=== PATIENT | female | born 1985 | race Caucasian/White ===

== ENCOUNTER → 2018-11-16 08:01 | Outpatient (CLI) | payer MEDICAID, SELFPAY ==
[2018-11-05 15:30] VITALS: BMI 31.9
[2018-11-16 09:15] LABS: AST(SGOT) 46 U/L (15-37); Alanine Aminotransfer ALT/SGPT 61 U/L (13-56); Albumin, Serum 3.1 g/dL (3.2-5.0); Alkaline Phosphatase 95 U/L (45-117); Bilirubin, Direct 0.12 mg/dL (0.00-0.30); Globulin 4.4 g/dL (2.2-4.2); Protein, Total 7.5 g/dL (6.4-8.2)
[2018-11-18 03:08] LABS: HCV Quant. RNA PCR 3490000 IU/mL (.)
[2018-11-18 09:54] LABS: HCV log 10 6.543 (.)
== END ==
PROVIDERS: Family Provider Family Medicine; PCP Family Medicine; Referring Provider Nurse Practitioner Family; Visit Provider Nurse Practitioner Family
DX: B19.20 Unspecified viral hepatitis C without hepatic coma (principal)
CPT/HCPCS: 36415; 80076; 87522

== ENCOUNTER → 2018-12-16 07:34 | Outpatient (CLI) | payer MEDICAID, SELFPAY ==
[2018-12-13 15:12] VITALS: BMI 31.9
[2018-12-16 09:18] LABS: Absolute Lymphocyte Count 10.12 X10^3/ul (0.83-4.51); Absolute Neutrophil Count 5.3 X10^3/uL (2.0-7.7); Basophil# 0.11 X10^3/uL; Basophil% 0.6 % (0-1); Eosinophil# 0.29 X10^3/uL; Eosinophils% 1.7 % (0-5); Hematocrit 45.5 % (37-47); Hemoglobin 14.8 g/dl (12.0-15.0); Lymphocyte # 10.12 X10^3/ul (4.0); Lymphocyte % 58.6 % (19-41); Mean Corp Hgb Conc 32.5 g/gl (32-36); Mean Corpuscular Hgb 29.2 pg (27.0-32.0); Mean Corpuscular Volume 89.9 fL (81-99); Mean Platelet Vol. 10.7 fl (6.2-12.0); Monocyte# 1.42 X10^3/uL; Monocyte% 8.2 % (0-10); Neutrophil # 5.26 X10^3/uL (2.7-7.7); Neutrophil % 30.4 % (47-70); Platelet Count 445 K/mm3 (150-450); RBC Distribution Width CV 13.3 % (11.6-14.6); RBC Distribution Width SD 43.3 fl (35.1-43.9); Red Blood Count 5.06 M/mm3 (4.2-5.4); White Blood Count 17.3 K/mm3 (4.4-11.0)
[2018-12-16 09:21] LABS: Differential Indicated SCAN CRITERIA MET; POSITIVE COUNT NO; POSITIVE DIFFERENTIAL YES; POSITIVE MORPHOLOGY YES
[2018-12-16 10:39] LABS: HIV - WCH Non-Reactive (Nonreactive)
[2018-12-19 09:36] LABS: Comment 1b (.)
[2018-12-20 11:09] LABS: Hep B Surface Antibodies Reactive (.)
[2018-12-23 10:54] LABS: Hepatitis C Genotype 1b
== END ==
PROVIDERS: Family Provider Internal Medicine; PCP Internal Medicine
DX: B18.2 Chronic viral hepatitis C (principal)
CPT/HCPCS: 36415; 85025; 86703; 86706; 87902

== ENCOUNTER 2019-01-11 19:33 | Inpatient (IN) | payer MEDICAID, SELFPAY ==
[2018-12-13 15:12] VITALS: BMI 31.9
[2019-01-11] VITALS (13 sets, daily range): BP systolic 106–165; BP diastolic 62–123; PULSE 118–146; RESP 16–51; TEMP 35.8–38.5; O2SAT 80–100; BMI 32.5; BMI 32.7
--- NOTE | 2019-01-11 19:49 | ED.RN ---
PT IS NOT HOLDING STILL. FINGERS, TOES, AND LIPS SLIGHTLY DUSKY BLUE COLOR. PLACED ON 2L O2 VIA NC
--- NOTE | 2019-01-11 19:50 | ED.RN ---
UNABLE TO GET PULSE OX WITH A GOOD WAVEFORM
--- NOTE | 2019-01-11 20:08 | RAD_ITS ---
STUDY: X-RAY CHEST REASON FOR EXAM: Female, 33 years old. Hypoxic TECHNIQUE: Single AP portable view of the chest. COMPARISON: None. FINDINGS: monitor and storage bin tender leads are present. There is an endotracheal tube with the tip 2.6 cm proximal to the alex. A nasogastric tube is present with the tip in the abdomen out of the [id number] of the image. There are bibasilar pulmonary infiltrates, left side more severely affected than right. There is no demonstrated pleural abnormality. Normal size heart. Normal mediastinum and doe. Normal visualized pulmonary arteries. Normal visualized aortic arch and descending thoracic aorta. Normal visualized thoracic spine. Normal visualized ribs, clavicles, and shoulders. There is no demonstrated abnormality of the visualized soft tissue structures of the upper abdomen. RAD/Chest 1 View (Portable) IMPRESSION: Endotracheal and nasogastric tubes appearing in adequate position. Bilateral pulmonary infiltrates left side more severely affected than right. Electronically Signed: Keegan Munoz MD at 21:57 EDT , Service support ,
--- NOTE | 2019-01-11 20:09 | EKG12_ITS ---
Test Reason : OVERDOSE Blood Pressure : / mmHG Vent. Rate : 134 BPM Atrial Rate : 134 BPM P-R Int : 120 ms QRS Dur : 080 ms QT Int : 380 ms P-R-T Axes : 056 046 053 degrees QTc Int : 567 ms Sinus tachycardia Nonspecific ST and T wave abnormality Abnormal ECG Confirmed by ESTEBAN JANSEN, LISANDRO ([id number]), book or script editor GHISLAINE MARTINEZ ([id number]) on 01/13/2019 11:22:57 AM Referred By: Mary Costello Confirmed By:LISANDRO ORELLANA MD
[2019-01-11] MEDS: Ziprasidone IM 20 MG/ML VIAL IM (20:10)
--- NOTE | 2019-01-11 20:16 | ED.DCSUM_ITS ---
- ER Visit Summary Date of Service: 01/11/19 Chief Complaint: Suspected drug abuse either methamphetamine or bath salts but unsure. History of Present Illness: The patient is a 33 F reportedly found in a drug house. Brought in with police. Suspected possible drug abuse. Patient this time is unable to give any history. Reportedly the police were called to do a well check is no weight seen her for several days. At this time she is unable to give me any history. She is flailing around in bed. It takes multiple people to hold her down to keep her safe from herself or from falling out of bed. We are going to need to physically restrain her for her own safety and that of other patients in the department. Physical Examination: Young female vital signs temperature 97.3. Heart rate 146. Initial blood pressure 164 123. Her arms and legs were flailing. Her eyes are open. She is awake. She is not able to give me any history at this time. HEENT exam atraumatic. Pupils round reactive light. Poor dentition. Dry mucous membranes. Neck nontender no lymphadenopathy. Lungs clear to auscultation bilaterally. Heart tachycardic no murmur. Rate about 145. Abdomen soft nontender normal bowel sounds no peritoneal signs. Moving all 4 extremities. No deformities. Nontender. Neurologically she is awake. Her eyes are open. She will follow limited commands. She does not give me any history. Test Results: EKG shows sinus tachycardia rate of [address]-T wave changes. No acute AL. No dysrhythmia. Portable chest x-ray postintubation shows ET tube in good position. OG in appropriate position. And bilateral lower lobe infiltrates consistent with bilateral lower lobe pneumonia. With the left more affected than the right. Read both by myself the radiologist. Initial blood gas shows a pH 7.26 PCO2 of 39 and PO2 of 109 on 100% O2 97% saturated. UA is negative. Other than positive blood and nitrates. Urine tox is positive for opiates, methamphetamines and amphetamines. Blood cultures x2 are pending. Emergency Department Course and Treatment: Patient initially treated with IM Geodon because we did not have an IV. She also be given IV Ativan. 2 L normal saline due to her dehydration. Patient's pulse ox remained in the mid to low 80s. Clinically she was in distress with a tachycardia and she was very difficult to keep sedated so made the decision to intubate the patient. She was given IV etomidate 20 mg and IV succinylcholine. Is intubated in the first attempt with a 7F ET tube at about 23 at the lips. Bilateral breath sounds were heard. OG was placed. Treatment Plan: IV fluids. IV sedation. Started on both IV Rocephin and IV Zithromax for bilateral lower lobe community-acquired pneumonia. Disposition: Admission to the ICU to the hospitalist Impression: Acute respiratory failure ET tube intubation by ER physician Bilateral lower lobe pneumonia Sepsis Respiratory failure Metabolic acidosis Acute drug abuse Dehydration This note was generated with [facility] dictation software. It may contain incorrect words, spelling, and punctuation that were not noted in review of the chart prior to signing ED Disposition - Plan for ED Patient:
[2019-01-11] MEDS: LORazepam 2 MG/ML Syringe IV (20:20)
[2019-01-11] MEDS: Etomidate 20 MG/10 ML Vial IV (20:36)
[2019-01-11] MEDS: Succinylcholine Chloride 200 MG/10 ML Vial 100 MG IV ×2 (20:37→20:44)
[2019-01-11] MEDS: Propofol 200 MG/20 ML Vial 40 MG IV BOLUS (20:48)
[2019-01-11] MEDS: Propofol 10MG/Ml 1,000 MG/100 ML Bottle 5.16 MG CONT INF ×2 (20:48→23:32)
[2019-01-11] MEDS: 0.9% Normal Saline 1,000 ML 1000 ML IV ×2 (20:48→21:32)
[2019-01-11] MEDS: 0.9% Normal Saline 1,000 ML 999 ML IV (21:12)
[2019-01-11 21:21] LABS: Bacteria 0 SEEN /hpf (None Seen); Mucous, Urine 0 SEEN /hpf (<or=2+); Red Blood Cells-Urine 0 SEEN /hpf (0-5); Squamous Epithelial Cells - UA 0 SEEN /hpf (5-10)
[2019-01-11 21:28] LABS: Color, Urine Yellow (Yellow); Glucose, Dipstick Normal (Normal); Ketone-Dipstick 5 mg/dl (Negative); Leukocyte Esterase-Dipstick 25 /ul (Negative); Nitrite-Dipstick Positive (Negative); Occult Blood-Urine 250 /ul (Negative); Protein-Dipstick 100 mg/dl (Negative); Specific Gravity, Urine 1.025 (1.002-1.030); Urine Clarity Clear (Clear); Urine Urobilinogen 1 mg/dl (Normal)
[2019-01-11 21:35] LABS: Base Excess -9 mmol/L (-2 to +2); Bicarbonate 17.6 mmol/L (22-26); Blood Gas Specimen Type ART; FI02 100; Mode A-C; O2 Delivery Device Vent; PEEP 10; PO2 109 mmHG (75-100); RR 30; SITE L Radial; SO2 97 % (95-99); Total Carbon Dioxide 19 mmol/L; Vt 529; pCO2 39.1 mmHg (35-45); pH 7.26 (7.35-7.45)
[2019-01-11 21:42] LABS: Amphetamine Urine VISTA POSITIVE (<1000 ng/mL); Barbiturate Urine VISTA NEGATIVE (< 200 ng/mL); Benzodiazepine Urine VISTA NEGATIVE (< 200 ng/mL); Cocaine Urine VISTA NEGATIVE (< 300 ng/mL); Ecstacy Urine VISTA POSITIVE (< 500 ng/mL); Methadone Urine VISTA NEGATIVE (< 300 ng/mL); PCP Urine VISTA NEGATIVE (< 25 ng/mL); THC Urine VISTA NEGATIVE (< 50 ng/mL); Vista UDS pH Range 7
[2019-01-11 21:47] LABS: Urine Bilirubin Dipstick 1 mg/dL (Negative)
[2019-01-11 21:48] LABS: Amorphous Sediment 2+; Coarse Granular Cast 0-5 SEEN /lpf (0-5 /lpf)
[2019-01-11 21:49] LABS: White Blood Cells 0-5 SEEN /hpf (0-5)
--- NOTE | 2019-01-11 21:58 | HP.PCM_ITS ---
Problem List (1) Acute respiratory failure with hypoxia Status: Acute (2) Pneumonia Status: Acute Qualifiers: Pneumonia type: due to unspecified organism Laterality: bilateral Lung location: lower lobe of lung Qualified Code(s): J18.1 - Lobar pneumonia, unspecified organism (3) Sepsis Status: Acute Qualifiers: Sepsis type: sepsis due to unspecified organism Qualified Code(s): A41.9 - Sepsis, unspecified organism (4) Cardiac enzymes elevated Status: Acute (5) Tobacco use Status: Chronic (6) Polysubstance abuse Status: Chronic (7) Hepatitis C Status: Chronic Qualifiers: Viral hepatitis chronicity: unspecified Hepatic coma status: without hepatic coma Qualified Code(s): B19.20 - Unspecified viral hepatitis C without hepatic coma (8) Asthma Status: Chronic Qualifiers: Asthma severity: unspecified severity Asthma persistence: unspecified Asthma complication type: unspecified Qualified Code(s): J45.909 - Unspecified asthma, uncomplicated (9) Endocarditis Status: Chronic Qualifiers: Endocarditis type: unspecified Chronicity: unspecified Qualified Code(s): I38 - Endocarditis, valve unspecified (10) Bipolar 1 disorder Status: Chronic History of Present Illness Date of Admission: 01/11/19 Chief Complaint: Found in drug house, failed to check in w/ 180, lethargic when found, intermittent agitation, eventual respiratory distress after sedation The patient is a 33 y/o F w/ PMHx: Tobacco use, History of Endocarditis (unclear valve/unclear organism), Bipolar disorder, Asthma, 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 In the ED work-up incomplete upon requested evaluation of patient w/ only noted CXR w/ BL LL infiltrates, USD w/ positive opiates, amphetamines, methamphetamines, urinalysis with elevated specific gravity 1.025, protein 100, occult blood 250, positive nitrates, 25 leukocyte esterase, WBC 0-5 with 0 bacteria noted, ABG with pH 7.26, PO2 109, PCO2 39.1, vent; however, eventual additional labs resulted following admission w/ CBC with WBC 25, hemoglobin 12.6, platelet 351 with left shift, CMP w/ sodium 140, chloride 113, carbon dioxide 16, BUN/Cr 44/1.08, Actiq acid 1.7, calcium 6.5, AST/ALT 280/85, Trop 0.212, EKG w/ sinus tachycardia with no acute evidence of ischemia, no read chest x-ray with ET tube and nasogastric tubes in place with bilateral pulmonary infiltrates left greater than right bilateral bases. In the ED patient administered Geodon, normal saline, Ativan, propofol, succinylcholine, etomidate, IV Rocephin and azithromycin. Upon presentation patient initially improved but however had notable agitation therefore Geodon and an IV Ativan were administered with following very sedate lethargic status, unable to maintain safe airway and therefore patient intubated while in the ED. Past Medical History Past Medical History (Chronic Problems): Chronic Problems (Last Reviewed 12/13/18 @ 15:11 by Sangeeta Bailey) Tobacco use (Chronic) Polysubstance abuse (Chronic) Hepatitis C (Chronic) Asthma (Chronic) Anxiety (Chronic) Endocarditis (Chronic) Heart murmur (Chronic) Bipolar 1 disorder (Chronic) Manic depression (Chronic) Medical History: Medical History (Last Reviewed 12/13/18 @ 15:11 by Sangeeta Bailey) Anxiety (Chronic) F41.9 Endocarditis (Chronic) I38 Heart murmur (Chronic) R01.1 Bipolar 1 disorder (Chronic) F31.9 Manic depression (Chronic) F31.9 Asthma J45.909 Allergies acetaminophen [From Vicodin] Allergy (Severe, Verified 01/11/19 20:49) Vomiting hydrocodone [From Vicodin] Allergy (Severe, Verified 01/11/19 20:49) Vomiting citalopram [From Celexa] Allergy (Verified 01/11/19 20:49) Swollen tongue Home Medications: Ambulatory Orders Medication Instructions Recorded buspirone 30 mg tablet 15 mg PO TID tab 11/05/18 gabapentin 600 mg tablet 600 mg PO TID 11/05/18 hydroxyzine HCl 25 mg tablet 25 mg PO QHS PRN #60 tab 11/05/18 loratadine 10 mg tablet 10 mg PO DAILY #90 tab 11/05/18 medroxyprogesterone 150 mg/mL 150 mg IM [id number] 11/05/18 intramuscular syringe trazodone 150 mg tablet 150 mg PO DAILY #30 tab 11/05/18 albuterol sulfate HFA 90 2 puff INHALATION Q6H PRN #8 g 11/29/18 mcg/actuation aerosol inhaler ondansetron HCl 4 mg tablet 4 mg PO BID-TID PRN #20 tab 11/29/18 benzonatate 200 mg capsule 200 mg PO TID PRN #60 cap 12/13/18 ibuprofen 200 mg tablet 600 mg PO TID-QID PRN #60 tab 12/13/18 prednisone 20 mg tablet 40 mg PO DAILY #10 tab 12/13/18 sertraline 50 mg tablet 75 mg PO DAILY #45 tab 01/06/19 Surgical History: Surgical History (Last Reviewed 12/13/18 @ 15:11 by Sangeeta Bailey) History of orthopedic surgery Z98.890 on Sternum History of splenectomy Z90.81 Surgical History: - - History of sternal surgery, splenectomy, questionable jonathon vular endocarditis intervention. 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 Smoking Status: Current every day smoker - Unclear pack per day history. Tobacco Use: Cigarettes Alcohol: Occasional - Noted occasional alcohol intake but unclear given sedated, intubated status. Drugs: - - From history upon mission, methamphetamine and possibly bath salts us age but unclear specific history as sedated, intubated status. - *Family History Maternal Family History: Family History (Last Reviewed 12/13/18 @ 15:11 by Sangeeta Bailey) Mother Cancer Grandmother Breast cancer Grandfather Diabetes History Items: Cancer Paternal Family History: Family History (Last Reviewed 12/13/18 @ 15:11 by Sangeeta Bailey) Mother Cancer Grandmother Breast cancer Grandfather Diabetes History Items: - - Unknown paternal family history, able to obtain from patient as intubated, sedated. Review of Systems Unable to obtain accurate/complete ROS d/t: Unable to obtain ROS secondary to intubated, sedated status. VTE Information - Inpt Only VTE Present on Admission: No VTE Mechan Device Prophylaxis: SCD's VTE Pharm Prophylaxis ordered?: Yes Patient Problems: Active and Suspected Problems (Last Reviewed 12/13/18 @ 15:11 by Sangeeta Dudley Acute respiratory failure with hypoxia (Acute) Pneumonia (Acute) Sepsis (Acute) Cardiac enzymes elevated (Acute) Subjective: Laying in the ED bed, intubated, sedated, no acute distress currently. Objective: Physical Examination: General: Sedated, intubated, unable to answer orientation questions, prior was agitated but given Geodon and Ativan, laying in the ED bed. Skin: normal color, turgor, no icterus, cyanosis except occasional abrasion, no obvious track gonsalves upon evaluation. HEENT: AT/NC, able to assess extraocular movements given sedate, intubated status, PERRLA are notably pinpoint bilaterally, dry MM, no carotid bruits or JVD noted. Lungs: Notably diminished breath sounds bilateral bases, intubated, sedated, no obvious rales, ronchi or wheezing. Heart: Tachycardic with regular rhythm; no gallop, rub audible. Abdomen: soft, NTTP, ND, normal BS, no HSM. Extremities: no cyanosis, clubbing, or edema see skin. Neurological: Sedated, intubated, unable to answer orientation questions, prior was agitated but given Geodon and Ativan, laying in the ED bed; cognitive function not baseline intact; pupils equally reactive to light and accomodation; cranial nerves unable to be assessed completely secondary to intubated, sedated status, not moving extremities to painful stimuli but sedated, intubated, strength difficult to assess given this presentation. Psychiatric: affect appears flat, sedated, no acute evidence of depressive or anxiety feelings, had been previously agitated in the ED upon initial evaluation per ED physician. - Physical Exam Vital Signs Temp Pulse Resp BP Pulse Ox 100.6 F H 123 H 27 H 126/85 H 98 01/11/19 21:12 01/11/19 21:12 01/11/19 21:12 01/11/19 21:12 01/11/19 21:12 Oxygen Delivery Method Mechanical Ventilator Weight: 189 lb 9.561 oz Body Mass Index (BMI) 32.5 Intake and Output for Last 24 Hours 01/09/19 01/10/19 01/11/19 23:59 23:59 23:59 Output Total 350 / 350 Balance -350 / -350 Laboratory Tests Past 24 Hrs 01/11/19 01/11/19 01/11/19 21:15 21:15 21:31 Specimen Type ART Sample Site L Radial pH 7.26 L Bicarbonate Actual 17.6 L POC Total CO2 19 Base Excess -9 L O2 Saturation 97 O2 % 100 ABG pCO2 39.1 ABG pO2 109 H Kvng Test NA Respiration Rate 30 O2 Delivery Device Vent Minute Volume 13.00 Vent Mode A-C Tidal Volume 529 POC PEEP 10 Blood Gas Notified Whom ED MD Urine Color Yellow Urine Clarity Clear Urine pH 5.0 Ur Specific [place] 1.025 Urine Protein 100 H Urine Glucose (UA) Normal Urine Ketones 5 H Urine Occult Blood 250 H Urine Nitrite Positive H Urine Bilirubin 1 H Urine Urobilinogen 1 H Ur Leukocyte Esterase 25 H Urine RBC 0 SEEN Urine WBC 0-5 SEEN Ur Squamous Epith Cells 0 SEEN Amorphous Sediment 2+ Urine Bacteria 0 SEEN Coarse Granular Casts 0-5 SEEN Urine Mucus 0 SEEN Urine Opiates Screen POSITIVE H Urine Methadone Screen NEGATIVE Ur Barbiturates Screen NEGATIVE Ur Phencyclidine Scrn NEGATIVE Ur Amphetamines Screen POSITIVE H U Methamphetamin-MDMA POSITIVE H U Benzodiazepines Scrn NEGATIVE Urine Cocaine Screen NEGATIVE U Cannabinoids Screen NEGATIVE Ur Drug Screen Comment Assessment/Plan All Active Problems (Last Reviewed 12/13/18 @ 15:11 by Sangeeta Bailey) Acute respiratory failure with hypoxia (Acute) Pneumonia (Acute) Sepsis (Acute) Cardiac enzymes elevated (Acute) Dental abscess (Acute) Upper respiratory infection (Acute) The patient is a 33 y/o F w/ PMHx: Tobacco use, History of Endocarditis (unclear valve/unclear organism), Bipolar disorder, Asthma, 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 (1) Acute Sepsis secondary to Acute Hypoxic Respiratory Failure secondary to Community Acquired Pneumonia; however, Possible GN/GP organisms given underlying history and exposure: ED work-up incomplete upon requested evaluation of patient w/ only noted CXR w/ BL LL infiltrates, USD w/ positive opiates, amphetamines, methamphetamines, urinalysis with elevated specific gravity 1.025, protein 100, occult blood 250, positive nitrates, 25 leukocyte esterase, WBC 0-5 with 0 bacteria noted, ABG with pH 7.26, PO2 109, PCO2 39.1, vent; however, eventual additional labs resulted following admission w/ CBC with WBC 25, hemoglobin 12.6, platelet 351 with left shift, CMP w/ sodium 140, chloride 113, carbon dioxide 16, BUN/Cr 44/1.08, lactic acid 1.7, calcium 6.5, AST/ALT 280/85, Trop 0.212, EKG w/ sinus tachycardia with no acute evidence of ischemia, no read chest x-ray with ET tube and nasogastric tubes in place with bilateral pulmonary infiltrates left greater than right bilateral bases. Will admit to the ICU, continue intubated, sedated status w/ AC, propofol and fentanyl regimen, continue ATC duonebs, PRN albuterol, maintained on IV Zosyn and Vancomycin, HOB, IS parameters w/ pending sputum cultures and urine antigens. Bld cx x 2 obtained in the ED. ICU physician consulted. (2) Indeterminate cardiac enzyme: EKG in ED w/ no acute evidence of anemia, CXR w/ bilateral lower lobe infiltrates. Trop elevated, 0.212. Will maintain on a monitored bed, continue serial cardiac enzymes and EKGs. Obtain magnesium level upon admission. Start therapeutic lovenox pending further cardiac enzyme trending. Continue medical management w/ asa w/ AM FLP. ECHO requested. Will await further trending, ECHO given history of endocarditis prior to request for Cardiology involvement given limited secondary to acute presentation #1. Mag pending. (3) History of endocarditis: Noted in PCP notes, unclear valve, unclear organism but given IV drug abuse history and current acute presentation with elevated cardiac enzyme, concerns, echocardiogram pending. (4) Polysubstance Abuse, IVDA Hx, History of Hepatitis C, Chronic: Patient currently not candidate for hep C treatment currently as needs to be clean, sober x 6 months, documented attendance NA or AA meetings, counseling and ongoing negative drug screens. HIV, hepatitis panel to assess for co-infection pending. (5) Tobacco Abuse: Encouraged cessation, inpatient consultation per RT, NR if desired once extubated. (6) Chronic Asthma: Intubated and sedated as noted per #1, continue ATC duonebs, PRN albuterol, HOB, IS parameters. (7) Bipolar Disorder: We will hold patient psychiatric regimen given acute presentation until clarified. (8) Elevated LFTs: Possibly chronic given hepatitis C history; however, to be cautious will trending, hydrating, obtain liver US. Hepatitis panel pending. (9) GERD: IV PPI. (10) DVT Prophylaxis: SCDs, therapeutic lovenox. Critical Care Time: 65 minutes, time from 9:30-10:35 pm, were spent addressing patients acute presentation w/ sepsis, acute hypoxic respiratory failure, bilateral lower lobe pneumonia, elevated cardiac enzymes, review of all data in collaboration with care team in addition to review of PCP records available given patient intubated, sedated status unable to give history. Code Visit Procedures: [id number]
--- NOTE | 2019-01-11 22:15 | ED.RN ---
ED STAFF AND LAB STILL UNABLE TO TO OBTAIN CX.
[2019-01-11] MEDS: LORazepam 2 MG/ML Syringe 4 MG IV (22:29)
[2019-01-11] MEDS: Ceftriaxone 1 GM/50 ML BAG IV (22:46)
--- NOTE | 2019-01-11 22:51 | ED.RN ---
ATTEMPTED TO CALL REPORT TO ICU, RN WILL CALL BACK.
[2019-01-11 23:12] LABS: Absolute Lymphocyte Count 2.19 X10^3/ul (0.83-4.51); Absolute Neutrophil Count 21.2 X10^3/uL (2.0-7.7); Basophil# 0.04 X10^3/uL; Basophil% 0.2 % (0-1); Eosinophil# 0.01 X10^3/uL; Hematocrit 36.2 % (37-47); Hemoglobin 12.6 g/dl (12.0-15.0); Lymphocyte # 2.19 X10^3/ul (4.0); Lymphocyte % 8.8 % (19-41); Mean Corp Hgb Conc 34.8 g/gl (32-36); Mean Corpuscular Hgb 29.6 pg (27.0-32.0); Mean Platelet Vol. 11.5 fl (6.2-12.0); Monocyte# 1.38 X10^3/uL; Monocyte% 5.5 % (0-10); Neutrophil # 21.18 X10^3/uL (2.7-7.7); Neutrophil % 84.9 % (47-70); Platelet Count 351 K/mm3 (150-450); RBC Distribution Width CV 13.2 % (11.6-14.6); RBC Distribution Width SD 40.2 fl (35.1-43.9); Red Blood Count 4.26 M/mm3 (4.2-5.4)
[2019-01-11 23:21] LABS: AST(SGOT) 280 U/L (15-37); Alanine Aminotransfer ALT/SGPT 85 U/L (13-56); Albumin, Serum 2.3 g/dL (3.2-5.0); Alkaline Phosphatase 83 U/L (45-117); Anion Gap 11 (5-15); BUN 44 mg/dL (7-18); BUN/Creat Ratio 40.7 RATIO (10-20); Bilirubin, Direct 0.17 mg/dL (0.00-0.30); Calcium,Total 6.5 mg/dL (8.5-10.1); Chloride 113 mmol/L (98-107); Creatinine, Serum 1.08 mg/dL (0.55-1.02); EST Glomerular Filtration Rate 61 mL/min (>60); Est Glom Filt Rate - Afr Amer 74 mL/min (>60); Estimated Creatinine Clearance 63.38 ml/min; Glucose 103 mg/dL (74-106); Potassium 3.8 mmol/L (3.5-5.1); Pregnancy, Serum, hCG Quali. NEGATIVE Negative (0-9 Nonpreg); Protein, Total 6.3 g/dL (6.4-8.2); Sodium Level 140 mmol/L (136-145)
[2019-01-11 23:26] LABS: Lactic Acid 1.7 mmol/L (0.4-2.0)
[2019-01-11 23:37] LABS: POSITIVE COUNT YES; POSITIVE DIFFERENTIAL YES; POSITIVE MORPHOLOGY YES
[2019-01-11 23:38] LABS: Differential Indicated SCAN CRITERIA MET
[2019-01-11 23:47] LABS: Absolute Nucleated RBC Count 0.07 10^3/uL (0-5); Differential Comment SCAN; NRBC Flagged by Analyzer 0.3 % (0-5)
[2019-01-11 23:48] LABS: Platelet Estimate ADEQUATE (ADEQ); Platelet Morphology LARGE
[2019-01-11] MEDS: 0.9% Normal Saline 1,000 ML 150 ML IV (23:51)
[2019-01-11] MEDS: fentaNYL drip 100 ML 2.5 MCG IV (23:52)
--- NOTE | 2019-01-11 23:54 | ECHOD_ITS ---
Reason For Study: CAD/ASHD Procedure This was a 2D Doppler, Color Flow transthoracic echocardiogram. The study was technically difficult. PT on vent, exam performed with patient in supine position. Exam performed portable in ICU/CCU. Left Ventricle Normal size and thickness. The estimated ejection fraction is 65 %. Stage 1 diastolic dysfunction. No regional wall motion abnormalities noted. Right Ventricle Normal size and thickness. Normal systolic function. Atria Normal left atrium. The right atrium is mildly enlarged. Normal atrial septum. Mitral Valve The mitral valve is structurally normal. No prolapse or stenosis seen. Tricuspid Valve Mild diffuse thickening of the tricuspid valve. Moderate (2+) tricuspid valve insufficiency. Right ventricular systolic pressure estimated to be 53 mmHg. Moderate pulmonary hypertension. Aortic Valve Normal aortic valve. Trisinus/trileaflet aortic valve. Pulmonic Valve Normal pulmonic valve. Great Vessels Normal aortic root. Normal arch. Normal inferior vena cava. Inferior vena cava collapse with sniff. Pericardium/Pleural No pericardial effusion. MMode/2D Measurements & Calculations LVIDd: 3.7 cm IVSd: 0.77 cm Ao root diam: 3.1 cm LVIDs: 2.5 cm LVPWd: 0.78 cm RVDd: 3.3 cm FS: 32.0 % LAV(MOD-bp): 35.2 ml LA A4 area: 14.7 cm2 LA dimension(2D): 3.4 cm LAV(MOD-bp) Indexed: 18.4 ml/m2 LAV(MOD-sp2): 31.7 ml LAV(MOD-sp4): 38.3 ml RA A4 area: 18.0 cm2 Doppler Measurements & Calculations MV E max amaury: 54.6 cm/sec Lat Peak E' Amaury: 16.1 cm/sec Med Peak E' Amaury: 12.7 cm/sec MV A max amaury: 71.8 cm/sec E/E' lat: 3.4 E/E' med: 4.3 MV E/A: 0.76 Ao V2 max: 127.4 cm/sec LV V1 max: 98.4 cm/sec PA V2 max: 97.1 cm/sec Ao max P.5 mmHg LV V1 max P.9 mmHg TR max amaury: 345.2 cm/sec TR max P.6 mmHg Interpretation Summary The estimated ejection fraction is 65 %. Stage 1 diastolic dysfunction. Moderate (2+) tricuspid valve insufficiency. Right ventricular systolic pressure estimated to be 53 mmHg. Moderate pulmonary hypertension. There is no comparison study available. Ordering Physician: Mary Costello Referring Physician: Amando Graves Performed By: Marilou Arnett RDCS, RVT
[2019-01-12] VITALS (38 sets, daily range): BP systolic 92–118; BP diastolic 56–74; PULSE 100–122; RESP 14–35; TEMP 35.7–36.9; O2SAT 91–100
[2019-01-12] MEDS: Enoxaparin 100 MG/ML Syringe 90 MG SC ×3 (00:53→17:33)
--- NOTE | 2019-01-12 01:12 | PCM.RX.CS ---
Consult Pharmacy has been consulted to manage selected antiobiotic: Vancomycin Type of Consult: New start Suspected Infection: Pneumonia Prior Doses of Antibiotics Received/Current Regimen: Medications Vancomycin HCl 750 mg/ Sodium (Chloride) 265 mls @ 250 mls/hr IV Q12H ILSA Discontinued Medications Vancomycin HCl 1,250 mg/ (Sodium Chloride) 275 mls @ 167 mls/hr IV X1 ONE Stop: 01/12/19 01:08 Last Admin: 01/12/19 00:21 Dose: 167 mls/hr Labs: Sodium 140 mmol/L (136-145) 01/11/19 22:45 Potassium 3.8 mmol/L (3.5-5.1) 01/11/19 22:45 Chloride 113 mmol/L (98-107) H 01/11/19 22:45 Carbon Dioxide 16.0 mmol/L (21.0-32.0) L 01/11/19 22:45 Anion Gap 11 (5-15) 01/11/19 22:45 BUN 44 mg/dL (7-18) H 01/11/19 22:45 Creatinine 1.08 mg/dL (0.55-1.02) H 01/11/19 22:45 Est GFR (MDRD) Af Amer 74 mL/min (>60) 01/11/19 22:45 Est GFR (MDRD) Non-Af 61 mL/min (>60) 01/11/19 22:45 BUN/Creatinine Ratio 40.7 RATIO (10-20) H 01/11/19 22:45 Glucose 103 mg/dL (74-106) 01/11/19 22:45 Microbiology: Microbiology 01/11/19 21:15 Urine Catheter - Khalil Legionella Antigen - Final 01/11/19 21:15 Urine Catheter - Khalil Streptococcus pneumoniae Antigen (M - Final Weight used for dosin kg Estimated Creatinine Clearance: 63 Goal Trough: 10-15 mcg/mL Pharmacy Plan for Drug Dosing: Pharmacy Service will continue to monitor and adjust dosing as required. Follow-Up Labs: Trough Vancomycin Labs to be done on [date and time ordered]: 01/13/19 @1200
[2019-01-12 01:20] LABS: CPK Total, Creatine Kinase 8489 U/L (26-192); Magnesium 2.2 mg/dL (1.6-2.6); Phosphorus 2.6 mg/dL (2.5-4.9)
[2019-01-12 01:25] LABS: HIV - WCH Non-Reactive (Nonreactive)
[2019-01-12] MEDS: Ipratropium/Albuterol Sulfate 3 ML AMPUL.NEB INHALATION ×5 (03:42→22:04)
[2019-01-12] MEDS: Propofol 10MG/Ml 1,000 MG/100 ML Bottle 5.16 MG CONT INF ×6 (04:00→21:07)
--- NOTE | 2019-01-12 05:55 | US_ITS ---
STUDY: ABDOMINAL ULTRASOUND - RIGHT UPPER QUADRANT REASON FOR VISIT: Female, 33 years old. Elevated liver function tests. TECHNIQUE: Ultrasound evaluation of the right upper quadrant was performed with real-time and static fowler-scale imaging. TECHNICAL QUALITY: Adequate. COMPARISON: None. FINDINGS: Liver: The liver is slightly enlarged and measures 18.1 cm. There is normal echogenicity of the liver. The bile ducts are within normal limits. There is hepatic color flow. The direction of portal flow is hepatopetal. There is no demonstrated mass lesion. Gallbladder: Normal distended gallbladder. The gallbladder wall measures 2.7 mm. There is a negative sonographic Urena's sign. There is trace amount of pericholecystic fluid. There are no gallstones. A small amount of sludge is seen in the gallbladder lumen. Common Bile Duct (C.B.D.): The common bile duct measures 4.3 mm. Pancreas: Normal size of the head, body of the pancreas. The tail portion is obscured due to overlying bowel gas. There is increased echogenicity of the pancreas. There is no demonstrated pancreatic mass or cyst. Right Kidney: Normal size of the right kidney. The right kidney measures 10.1 cm x 5.4 cm x 4.1 cm. Normal renal cortex. The right cortex measures 1.5 cm. There is no demonstrated renal mass or cyst. There is no right hydronephrosis. US/Liver IMPRESSION: Mild hepatomegaly. Trace amount of pericholecystic fluid and sludge within the gallbladder lumen. Electronically Signed: Ever See, at 16:11 EDT , Service support ,
--- NOTE | 2019-01-12 05:55 | EKG12_ITS ---
Test Reason : AM EKG Blood Pressure : / mmHG Vent. Rate : 114 BPM Atrial Rate : 114 BPM P-R Int : 126 ms QRS Dur : 080 ms QT Int : 318 ms P-R-T Axes : 053 048 036 degrees QTc Int : 438 ms Sinus tachycardia Nonspecific T wave abnormality Abnormal ECG When compared with ECG of 11-JAN-2019 20:59, MANUAL COMPARISON REQUIRED, DATA IS UNCONFIRMED Confirmed by AHMET GALLEGOS ([id number]), assistant editor ROCK BERMUDEZ ([id number] on 01/17/2019 5:07:58 PM Referred By: Mary Costello Confirmed By:AHMET GALLEGOS
--- NOTE | 2019-01-12 06:04 | NURSING ---
SBT NOT ATTEMPTED DUE TO PT REQUIRING PEEP OF 10, FIO2 60%, AND INTUBATED LESS THAN 12 HOURS.
--- NOTE | 2019-01-12 06:47 | CON.PCM_ITS ---
Capacity - Capacity Assessment Tool Can the patient make a choice & communicate that choice?: No Can the patient understand benefits, risks and alternatives?: No Can the patient make a logical, rational choice?: No Does the patient have an Advance Directive?: No Reason for Consult Date of Consultation: 01/12/19 Reason for Consultation: Acute respiratory failure History of Present Illness: The patient is a 33-year-old female, with a history as outlined below, who presented to the emergency department on January 11 with a suspected drug overdose. No history can be obtained from the patient, she is currently intubated and sedated. There are no family available at the bedside. Per documentation, the patient currently resides at [facility] and failed to check in. Therefore, the police were contacted, who reportedly found the patient in a suspected drug house. The patient has an extensive history of polysubstance abuse and questionable prior endocarditis. On presentation to the emergency department, the patient was noted to be afebrile, tachycardic and hypertensive. She was tachypneic and hypoxic as well. Laboratory evaluation revealed an elevated white blood cell count to 25,000. Chemistry profile was notable for a serum bicarbonate of 16 and a creatinine of 1.08. Lactate was within normal limits at 1.7. AST was increased to 280 with a corresponding ALT increased to 85. CK level was increased to 8489. Initial troponin was elevated to 0.212. Urinalysis was positive for nitrites and leukocyte esterase. No urine bacteria was noted. Toxicology screen was positive for opiates and methamphetamine. HIV screen was negative. In the emergency department, the patient received IM Geodon along with Ativan. Supplemental IV fluid was provided. Despite the aforementioned, the patient remained hypoxic and was difficult to keep sedated. Therefore, the decision was made to electively intubate the patient. Plain film chest x-ray revealed bilateral pulmonary infiltrates. The patient was subsequently started on antibiotics. She was then admitted to the medical intensive care unit for ongoing management. Past Medical History Past Medical History (Chronic Problems): Chronic Problems (Last Reviewed 12/13/18 @ 15:11 by Sangeeta Bailey) Tobacco use (Chronic) Polysubstance abuse (Chronic) Hepatitis C (Chronic) Asthma (Chronic) Anxiety (Chronic) Endocarditis (Chronic) Heart murmur (Chronic) Bipolar 1 disorder (Chronic) Manic depression (Chronic) Medical History: Medical History (Last Reviewed 12/13/18 @ 15:11 by Sangeeta Bailey) Anxiety (Chronic) F41.9 Endocarditis (Chronic) I38 Heart murmur (Chronic) R01.1 Bipolar 1 disorder (Chronic) F31.9 Manic depression (Chronic) F31.9 Asthma J45.909 Allergies acetaminophen [From Vicodin] Allergy (Severe, Verified 01/11/19 20:49) Vomiting hydrocodone [From Vicodin] Allergy (Severe, Verified 01/11/19 20:49) Vomiting citalopram [From Celexa] Allergy (Verified 01/11/19 20:49) Swollen tongue Home Medications: Ambulatory Orders Medication Instructions Recorded buspirone 30 mg tablet 15 mg PO TID tab 11/05/18 gabapentin 600 mg tablet 600 mg PO TID 11/05/18 hydroxyzine HCl 25 mg tablet 25 mg PO QHS PRN #60 tab 11/05/18 loratadine 10 mg tablet 10 mg PO DAILY #90 tab 11/05/18 medroxyprogesterone 150 mg/mL 150 mg IM [id number] 11/05/18 intramuscular syringe trazodone 150 mg tablet 150 mg PO DAILY #30 tab 11/05/18 albuterol sulfate HFA 90 2 puff INHALATION Q6H PRN #8 g 11/29/18 mcg/actuation aerosol inhaler ondansetron HCl 4 mg tablet 4 mg PO BID-TID PRN #20 tab 11/29/18 benzonatate 200 mg capsule 200 mg PO TID PRN #60 cap 12/13/18 ibuprofen 200 mg tablet 600 mg PO TID-QID PRN #60 tab 12/13/18 prednisone 20 mg tablet 40 mg PO DAILY #10 tab 12/13/18 sertraline 50 mg tablet 75 mg PO DAILY #45 tab 01/06/19 Surgical History: Surgical History (Last Reviewed 12/13/18 @ 15:11 by Sangeeta Bailey) History of orthopedic surgery Z98.890 on Sternum History of splenectomy Z90.81 Surgical History: - - History of sternal surgery, splenectomy, questionable valvular endocarditis intervention. 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 Smoking Status: Current every day smoker - Unclear pack per day history. Tobacco Use: Cigarettes Alcohol: Occasional - Noted occasional alcohol intake but unclear given sedated, intubated status. Drugs: - - From history upon [place], methamphetamine and possibly bath salts usage but unclear specific history as sedated, intubated status. - *Family History Maternal Family History: Family History (Last Reviewed 12/13/18 @ 15:11 by Sangeeta Bailey) Mother Cancer Grandmother Breast cancer Grandfather Diabetes History Items: Cancer Paternal Family History: Family History (Last Reviewed 12/13/18 @ 15:11 by Sangeeta Bailey) Mother Cancer Grandmother Breast cancer Grandfather Diabetes History Items: - - Unknown paternal family history, able to obtain from patient as intubated, sedated. Review of Systems Unable to obtain accurate/complete ROS d/t: Due to current intubation and mechanical ventilation status Patient Problems: Active and Suspected Problems (Last Reviewed 12/13/18 @ 15:11 by Sangeeta Bailey) Acute respiratory failure with hypoxia (Acute) Pneumonia (Acute) Sepsis (Acute) Cardiac enzymes elevated (Acute) Objective: The patient's most recent lab work, culture data and imaging studies have all been personally reviewed. - Physical Exam General: - - Intubated, sedated and mechanically ventilated. Currently tolerating assist control without ventilator dyssynchrony noted. HEENT: Atraumatic, PERRLA, Normocephalic Oral: No Gingival or Mucosal Lesions/ Ulcerations, - - Endotracheal and OG tubes currently in place. Neck: Supple, No Nodes, Trachea Midline Lungs: No wheeze, No rales, Diminished, Rhonchi, Tachypneic Cardiovascular: Normal S1, Normal S2, Tachycardic Abdomen: Bowel Sounds Present, Soft, Non Tender, Non-Distended Extremities: No clubbing, No cyanosis, No edema Skin: - - Erythema of B/L proximal medial thighs Musculoskeletal: No Muscle Wasting Lymphatic: No Cervical, Supraclavicular, or Inguinal Adenopathy Neurological: - - No focal neurological deficits. Patient does become extremely agitated with stimulation. Psych/Mental Status: Agitated, Restless Vital Signs Temp Pulse Resp BP Pulse Ox 36.4 C L 114 H 26 H 118/65 100 01/12/19 06:00 01/12/19 06:00 01/12/19 06:00 01/12/19 06:00 01/12/19 06:00 Oxygen Delivery Method Mechanical Ventilator Weight: 191 lb 12.835 oz Body Mass Index (BMI) 32.7 Intake and Output for Last 24 Hours 01/10/19 01/11/19 01/12/19 23:59 23:59 23:59 Intake Total 1490 / 1490 Output Total 550 / 550 700 / 700 Balance -550 / -550 790 / 790 Microbiology Past 72 Hours 01/11/19 21:15 Legionella Antigen - Final Urine Catheter - Khalil 01/11/19 21:15 Streptococcus pneumoniae Antigen (M - Final Urine Catheter - Khalil Laboratory Tests Past 24 Hrs 01/11/19 01/11/19 01/11/19 21:15 21:15 21:31 WBC RBC Hgb Hct MCV MCH MCHC RDW RDW Differential Plt Count MPV Immature Gran % (Auto) Neut % (Auto) Lymph % (Auto) [place] % (Auto) Eos % (Auto) Baso % (Auto) Absolute Neuts (auto) Absolute Lymphs (auto) Total Counted Nucleated RBC % Differential Comment Platelet Estimate Plt Morphology Comment Absolute Retic Specimen Type ART Sample Site L Radial pH 7.26 L Bicarbonate Actual 17.6 L POC Total CO2 19 Base Excess -9 L O2 Saturation 97 O2 % 100 ABG pCO2 39.1 ABG pO2 109 H Kvng Test NA Respiration Rate 30 O2 Delivery Device Vent Minute Volume 13.00 Vent Mode A-C Tidal Volume 529 POC PEEP 10 Blood Gas Notified Whom ED Sodium Potassium Chloride Carbon Dioxide Anion Gap BUN Creatinine Estim Creat Clear Calc Est GFR (MDRD) Af Amer Est GFR (MDRD) Non-Af BUN/Creatinine Ratio Glucose Lactic Acid Calcium Phosphorus Magnesium Total Bilirubin Direct Bilirubin AST ALT Alkaline Phosphatase Total Creatine Kinase Troponin I Total Protein Albumin Globulin Serum , Qual Urine Color Yellow Urine Clarity Clear Urine pH 5.0 Ur Specific [place] 1.025 Urine Protein 100 H Urine Glucose (UA) Normal Urine Ketones 5 H Urine Occult Blood 250 H Urine Nitrite Positive H Urine Bilirubin 1 H Urine Urobilinogen 1 H Ur Leukocyte Esterase 25 H Urine RBC 0 SEEN Urine WBC 0-5 SEEN Ur Squamous Epith Cells 0 SEEN Amorphous Sediment 2+ Urine Bacteria 0 SEEN Coarse Granular Casts 0-5 SEEN Urine Mucus 0 SEEN Urine Opiates Screen POSITIVE H Urine Methadone Screen NEGATIVE Ur Barbiturates Screen NEGATIVE Ur Phencyclidine Scrn NEGATIVE Ur Amphetamines Screen POSITIVE H U Methamphetamin-MDMA POSITIVE H U Benzodiazepines Scrn NEGATIVE Urine Cocaine Screen NEGATIVE U Cannabinoids Screen NEGATIVE Ur Drug Screen Comment HIV 1&2 Antibody 01/11/19 01/11/19 01/11/19 22:45 22:45 22:45 WBC 25.0 H RBC 4.26 Hgb 12.6 Hct 36.2 L MCV 85.0 MCH 29.6 MCHC 34.8 RDW 13.2 RDW Differential 40.2 Plt Count 351 MPV 11.5 Immature Gran % (Auto) 0.600 Neut % (Auto) 84.9 H Lymph % (Auto) 8.8 L [place] % (Auto) 5.5 Eos % (Auto) 0.0 Baso % (Auto) 0.2 Absolute Neuts (auto) 21.2 H Absolute Lymphs (auto) 2.19 Total Counted Not Reportable Nucleated RBC % 0.3 Differential Comment SCAN Platelet Estimate ADEQUATE Plt Morphology Comment LARGE Absolute Retic 0.07 Specimen Type Sample Site pH Bicarbonate Actual POC Total CO2 Base Excess O2 Saturation O2 % ABG pCO2 ABG pO2 Kvng Test Respiration Rate O2 Delivery Device Minute Volume Vent Mode Tidal Volume POC PEEP Blood Gas Notified Whom Sodium 140 Potassium 3.8 Chloride 113 H Carbon Dioxide 16.0 L Anion Gap 11 BUN 44 H Creatinine 1.08 H Estim Creat Clear Calc 63.38 Est GFR (MDRD) Af Amer 74 Est GFR (MDRD) Non-Af 61 BUN/Creatinine Ratio 40.7 H Glucose 103 Lactic Acid 1.7 Calcium 6.5 L* Phosphorus Magnesium Total Bilirubin 0.60 Direct Bilirubin 0.17 AST 280 H ALT 85 H Alkaline Phosphatase 83 Total Creatine Kinase Troponin I 0.212 H Total Protein 6.3 L Albumin 2.3 L Globulin 4.0 Serum , Qual Urine Color Urine Clarity Urine pH Ur Specific [place] Urine Protein Urine Glucose (UA) Urine Ketones Urine Occult Blood Urine Nitrite Urine Bilirubin Urine Urobilinogen Ur Leukocyte Esterase Urine RBC Urine WBC Ur Squamous Epith Cells Amorphous Sediment Urine Bacteria Coarse Granular Casts Urine Mucus Urine Opiates Screen Urine Methadone Screen Ur Barbiturates Screen Ur Phencyclidine Scrn Ur Amphetamines Screen U Methamphetamin-MDMA U Benzodiazepines Scrn Urine Cocaine Screen U Cannabinoids Screen Ur Drug Screen Comment HIV 1&2 Antibody 01/11/19 01/11/19 01/11/19 22:45 22:45 22:45 WBC RBC Hgb Hct MCV MCH MCHC RDW RDW Differential Plt Count MPV Immature Gran % (Auto) Neut % (Auto) Lymph % (Auto) [place] % (Auto) Eos % (Auto) Baso % (Auto) Absolute Neuts (auto) Absolute Lymphs (auto) Total Counted Nucleated RBC % Differential Comment Platelet Estimate Plt Morphology Comment Absolute Retic Specimen Type Sample Site pH Bicarbonate Actual POC Total CO2 Base Excess O2 Saturation O2 % ABG pCO2 ABG pO2 Kvng Test Respiration Rate O2 Delivery Device Minute Volume Vent Mode Tidal Volume POC PEEP Blood Gas Notified Whom Sodium Potassium Chloride Carbon Dioxide Anion Gap BUN Creatinine Estim Creat Clear Calc Est GFR (MDRD) Af Amer Est GFR (MDRD) Non-Af BUN/Creatinine Ratio Glucose Lactic Acid Calcium Phosphorus 2.6 Magnesium 2.2 Total Bilirubin Direct Bilirubin AST ALT Alkaline Phosphatase Total Creatine Kinase 8489 H Troponin I Total Protein Albumin Globulin Serum , Qual NEGATIVE Urine Color Urine Clarity Urine pH Ur Specific [place] Urine Protein Urine Glucose (UA) Urine Ketones Urine Occult Blood Urine Nitrite Urine Bilirubin Urine Urobilinogen Ur Leukocyte Esterase Urine RBC Urine WBC Ur Squamous Epith Cells Amorphous Sediment Urine Bacteria Coarse Granular Casts Urine Mucus Urine Opiates Screen Urine Methadone Screen Ur Barbiturates Screen Ur Phencyclidine Scrn Ur Amphetamines Screen U Methamphetamin-MDMA U Benzodiazepines Scrn Urine Cocaine Screen U Cannabinoids Screen Ur Drug Screen Comment HIV 1&2 Antibody Non-Reactive Clinical Impression(s) from Imaging Studies Chest X-Ray 01/11/19 20:08 IMPRESSION: Endotracheal and nasogastric tubes appearing in adequate position. Bilateral pulmonary infiltrates left side more severely affected than right. Electronically Signed: Keegan Munoz MD at 21:57 EDT , Service support , Assessment/Plan Active and Suspected Problems (Last Reviewed 12/13/18 @ 15:11 by Sangeeta Bailey) Acute respiratory failure with hypoxia (Acute) Pneumonia (Acute) Sepsis (Acute) Cardiac enzymes elevated (Acute) RECOMMENDATIONS: 1. Stop continuous normal saline infusion and transition to lactated Ringer's. 2. Discontinue acetaminophen, given transaminitis noted on liver function profile. 3. Continue bronchodilators 4. Wean FiO2 as tolerated to maintain an oxygen saturation at or above 90%. 5. Obtain additional IV access, either by PICC or central line placement 6. Obtain hepatitis panel 7. Start tube feeds today, per nutrition recommendations. 8. Continue broad-spectrum antimicrobials. Check MRSA screen. 9. Continue fentanyl and propofol for sedation. IMPRESSIONS: 1. Acute hypoxemic respiratory failure The patient was intubated in the emergency department due to refractory agitation and hypoxemia secondary to aspiration versus community-acquired pneumonia. The patient will be continued on broad-spectrum antimicrobials as ordered, pending infectious workup. Will check strep and urine Legionella antigens, along with respiratory viral panel and MRSA screen. Sputum will be obtained and sent for culture. Given the patient's smoking history, [facility] hodilators will be utilized empirically. Will wean FiO2 and PEEP to maintain an oxygen saturation at or above 90%. Okay from my perspective to begin tube feeds today. 2. Severe sepsis with concerns for community-acquired versus aspiration pneumonia The patient has received supplemental IV fluid hydration. This will be continued accordingly. She remains hemodynamically stable at this time. Continue current supportive measures and antibiotics as noted above. 3. Toxic/metabolic encephalopathy Likely multifactorial in etiology with drug intoxication/overdose and pulmonary infectious process contributing. Continue current supportive measures with invasive mechanical ventilatory support. We will utilize propofol and fentanyl for sedation with a goal to maintain a RASS of -1 to 1. 4. Personal history of endocarditis Surface echocardiogram is currently pending. 5. History of polysubstance abuse/tobacco dependency/reported baseline asthma/bipolar disorder/GERD Complicates care, management, recovery and prognosis. Nicotine replacement therapy can be utilized while the patient is admitted to the hospital. Continue PPI therapy. TIME: 45 minutes of critical care time, independent of procedures, was spent addressing the patient's acute hypoxemic respiratory failure, severe sepsis, community-acquired versus aspiration pneumonia, toxic/metabolic encephalopathy, review of all data and collaboration with the care team. ([id number]) Code Visit [id number]: [id number] Critical care first hour
[2019-01-12 07:51] LABS: Base Excess -10 mmol/L (-2 to +2); Bicarbonate 15.8 mmol/L (22-26); Blood Gas Specimen Type ART; FI02 60; Mode A-C; O2 Delivery Device Vent; PEEP 10; PO2 83 mmHG (75-100); RR 16; SITE R Radial; SO2 96 % (95-99); Time Given 730; Total Carbon Dioxide 17 mmol/L; Vt 450; pCO2 27.9 mmHg (35-45); pH 7.36 (7.35-7.45)
[2019-01-12 07:57] LABS: International Normalized Ratio 1.3; Prothrombin Time (Protime)PT. 15.6 SECONDS (11.7-14.9)
--- NOTE | 2019-01-12 08:09 | PCM.PROGNOTE ---
Patient Problems: Active and Suspected Problems (Last Reviewed 12/13/18 @ 15:11 by Sangeeta Bailey) Acute respiratory failure with hypoxia (Acute) Pneumonia (Acute) Sepsis (Acute) Cardiac enzymes elevated (Acute) Subjective: The patient is a 33-year-old female with a history of bipolar disorder, endocarditis, asthma, tobacco dependence, hepatitis C, polysubstance abuse and obesity who was found in a known drug house by police and was noted to be lethargic at times and agitated at others. She was brought to the emergency department at [facility] on 01/11/2019 and required Geodon and Ativan to control her behavior. She was intubated to protect the airway. Vital signs of presentation to the emergency room were temp 97.8, pulse rate 146, blood pressure 164/123, respiratory rate 33 and she was 80% saturated on room air. He was placed on a nonrebreather and the O2 saturation only increased 81%. White blood cell count was 25 with a left shift. Hemoglobin and platelets were within normal limits. BMP showed a decreased CO2 at 16 and the BUN was 44 with a creatinine of 1.08. Calcium was low at 6.5 and the albumin was 2.3. Phosphorus and magnesium were normal. AST was elevated at 280 and the ALT was 85. Total creatine kinase was 8489. Troponin was 0.212. Urine was negative. UA showed 0-5 WBCs per high-power field. Urine drug screen was positive for opiates, amphetamines and methamphetamine. Chest x-ray showed bilateral infiltrates. She was admitted to the intensive care unit. Zosyn and vancomycin were ordered. She was started on full dose Lovenox and aspirin due to the elevation in the troponin. Legionella and streptococcal antigens in the urine were negative. One blood culture was sent and is pending. Up sputum was obtained. All events of the past 24 hours have been reviewed. T-max since admission is 101.3. She is tachycardic with the heart rate ranging from 110-120. Blood pressure is stable. She is 99-100% saturated on a 60% FiO2. Objective: PHYSICAL EXAM: GENERAL: intubated and sedated ORAL: dry mucosa, no mucosal lesions NECK: No JVD, supple, trachea midline LUNGS: CTA, symmetric chest expansion, diminished breath sounds HEART: Tachycardic, Normal S1 and S2, no rub, no gallop, no murmur ABDOMEN: soft, no guarding with palpation, ND, decreased BS present EXTREMITIES: no edema, no cyanosis, no calf tenderness peripheral pulses are normal. SKIN: The inner thighs are reddened with no openings in the skin NEUROLOGIC: no focal neurologic deficits....moving all extremities PSYCH: agitated - Physical Exam Vital Signs Temp Pulse Resp BP Pulse Ox 97.6 F L 114 H 26 H 118/65 100 01/12/19 06:00 01/12/19 06:00 01/12/19 06:00 01/12/19 06:00 01/12/19 06:00 Oxygen Delivery Method Mechanical Ventilator Weight: 191 lb 12.835 oz Body Mass Index (BMI) 32.7 Intake and Output for Last 24 Hours 01/10/19 01/11/19 01/12/19 23:59 23:59 23:59 Intake Total 1490 / 1490 Output Total 550 / 550 700 / 700 Balance -550 / -550 790 / 790 Microbiology Past 72 Hours 01/11/19 21:15 Legionella Antigen - Final Urine Catheter - Khalil 01/11/19 21:15 Streptococcus pneumoniae Antigen (M - Final Urine Catheter - Khalil Laboratory Tests Past 24 Hrs 01/11/19 01/11/19 01/11/19 21:15 21:15 21:31 WBC RBC Hgb Hct MCV MCH MCHC RDW RDW Differential Plt Count MPV Immature Gran % (Auto) Neut % (Auto) Lymph % (Auto) Mcleod % (Auto) Eos % (Auto) Baso % (Auto) Absolute Neuts (auto) Absolute Lymphs (auto) Total Counted Nucleated RBC % Differential Comment Platelet Estimate Plt Morphology Comment Absolute Retic PT INR Specimen Type ART Sample Site L Radial pH 7.26 L Bicarbonate Actual 17.6 L POC Total CO2 19 Base Excess -9 L O2 Saturation 97 O2 % 100 ABG pCO2 39.1 ABG pO2 109 H Kvng Test NA Respiration Rate 30 O2 Delivery Device Vent Minute Volume 13.00 Vent Mode A-C Tidal Volume 529 POC PEEP 10 Blood Gas Notified Whom ED Blood Gas Notified Time Sodium Potassium Chloride Carbon Dioxide Anion Gap BUN Creatinine Estim Creat Clear Calc Est GFR (MDRD) Af Amer Est GFR (MDRD) Non-Af BUN/Creatinine Ratio Glucose Lactic Acid Calcium Phosphorus Magnesium Total Bilirubin Direct Bilirubin AST ALT Alkaline Phosphatase Total Creatine Kinase Troponin I Total Protein Albumin Globulin Serum , Qual Urine Color Yellow Urine Clarity Clear Urine pH 5.0 Ur Specific [place] 1.025 Urine Protein 100 H Urine Glucose (UA) Normal Urine Ketones 5 H Urine Occult Blood 250 H Urine Nitrite Positive H Urine Bilirubin 1 H Urine Urobilinogen 1 H Ur Leukocyte Esterase 25 H Urine RBC 0 SEEN Urine WBC 0-5 SEEN Ur Squamous Epith Cells 0 SEEN Amorphous Sediment 2+ Urine Bacteria 0 SEEN Coarse Granular Casts 0-5 SEEN Urine Mucus 0 SEEN Urine Opiates Screen POSITIVE H Urine Methadone Screen NEGATIVE Ur Barbiturates Screen NEGATIVE Ur Phencyclidine Scrn NEGATIVE Ur Amphetamines Screen POSITIVE H U Methamphetamin-MDMA POSITIVE H U Benzodiazepines Scrn NEGATIVE Urine Cocaine Screen NEGATIVE U Cannabinoids Screen NEGATIVE Ur Drug Screen Comment HIV 1&2 Antibody 01/11/19 01/11/19 01/11/19 22:45 22:45 22:45 WBC 25.0 H RBC 4.26 Hgb 12.6 Hct 36.2 L MCV 85.0 MCH 29.6 MCHC 34.8 RDW 13.2 RDW Differential 40.2 Plt Count 351 MPV 11.5 Immature Gran % (Auto) 0.600 Neut % (Auto) 84.9 H Lymph % (Auto) 8.8 L Mcleod % (Auto) 5.5 Eos % (Auto) 0.0 Baso % (Auto) 0.2 Absolute Neuts (auto) 21.2 H Absolute Lymphs (auto) 2.19 Total Counted Not Reportable Nucleated RBC % 0.3 Differential Comment SCAN Platelet Estimate ADEQUATE Plt Morphology Comment LARGE Absolute Retic 0.07 PT INR Specimen Type Sample Site pH Bicarbonate Actual POC Total CO2 Base Excess O2 Saturation O2 % ABG pCO2 ABG pO2 Kvng Test Respiration Rate O2 Delivery Device Minute Volume Vent Mode Tidal Volume POC PEEP Blood Gas Notified Whom Blood Gas Notified Time Sodium 140 Potassium 3.8 Chloride 113 H Carbon Dioxide 16.0 L Anion Gap 11 BUN 44 H Creatinine 1.08 H Estim Creat Clear Calc 63.38 Est GFR (MDRD) Af Amer 74 Est GFR (MDRD) Non-Af 61 BUN/Creatinine Ratio 40.7 H Glucose 103 Lactic Acid 1.7 Calcium 6.5 L* Phosphorus Magnesium Total Bilirubin 0.60 Direct Bilirubin 0.17 AST 280 H ALT 85 H Alkaline Phosphatase 83 Total Creatine Kinase Troponin I 0.212 H Total Protein 6.3 L Albumin 2.3 L Globulin 4.0 Serum , Qual Urine Color Urine Clarity Urine pH Ur Specific [place] Urine Protein Urine Glucose (UA) Urine Ketones Urine Occult Blood Urine Nitrite Urine Bilirubin Urine Urobilinogen Ur Leukocyte Esterase Urine RBC Urine WBC Ur Squamous Epith Cells Amorphous Sediment Urine Bacteria Coarse Granular Casts Urine Mucus Urine Opiates Screen Urine Methadone Screen Ur Barbiturates Screen Ur Phencyclidine Scrn Ur Amphetamines Screen U Methamphetamin-MDMA U Benzodiazepines Scrn Urine Cocaine Screen U Cannabinoids Screen Ur Drug Screen Comment HIV 1&2 Antibody 01/11/19 01/11/19 01/11/19 22:45 22:45 22:45 WBC RBC Hgb Hct MCV MCH MCHC RDW RDW Differential Plt Count MPV Immature Gran % (Auto) Neut % (Auto) Lymph % (Auto) Mcleod % (Auto) Eos % (Auto) Baso % (Auto) Absolute Neuts (auto) Absolute Lymphs (auto) Total Counted Nucleated RBC % Differential Comment Platelet Estimate Plt Morphology Comment Absolute Retic PT INR Specimen Type Sample Site pH Bicarbonate Actual POC Total CO2 Base Excess O2 Saturation O2 % ABG pCO2 ABG pO2 Kvng Test Respiration Rate O2 Delivery Device Minute Volume Vent Mode Tidal Volume POC PEEP Blood Gas Notified Whom Blood Gas Notified Time Sodium Potassium Chloride Carbon Dioxide Anion Gap BUN Creatinine Estim Creat Clear Calc Est GFR (MDRD) Af Amer Est GFR (MDRD) Non-Af BUN/Creatinine Ratio Glucose Lactic Acid Calcium Phosphorus 2.6 Magnesium 2.2 Total Bilirubin Direct Bilirubin AST ALT Alkaline Phosphatase Total Creatine Kinase 8489 H Troponin I Total Protein Albumin Globulin Serum , Qual NEGATIVE Urine Color Urine Clarity Urine pH Ur Specific [place] Urine Protein Urine Glucose (UA) Urine Ketones Urine Occult Blood Urine Nitrite Urine Bilirubin Urine Urobilinogen Ur Leukocyte Esterase Urine RBC Urine WBC Ur Squamous Epith Cells Amorphous Sediment Urine Bacteria Coarse Granular Casts Urine Mucus Urine Opiates Screen Urine Methadone Screen Ur Barbiturates Screen Ur Phencyclidine Scrn Ur Amphetamines Screen U Methamphetamin-MDMA U Benzodiazepines Scrn Urine Cocaine Screen U Cannabinoids Screen Ur Drug Screen Comment HIV 1&2 Antibody Non-Reactive 01/12/19 01/12/19 07:40 07:45 WBC RBC Hgb Hct MCV MCH MCHC RDW RDW Differential Plt Count MPV Immature Gran % (Auto) Neut % (Auto) Lymph % (Auto) Mcleod % (Auto) Eos % (Auto) Baso % (Auto) Absolute Neuts (auto) Absolute Lymphs (auto) Total Counted Nucleated RBC % Differential Comment Platelet Estimate Plt Morphology Comment Absolute Retic PT 15.6 H INR 1.3 Specimen Type ART Sample Site R Radial pH 7.36 Bicarbonate Actual 15.8 L POC Total CO2 17 Base Excess -10 L O2 Saturation 96 O2 % 60 ABG pCO2 27.9 L ABG pO2 83 Kvng Test Respiration Rate 16 O2 Delivery Device Vent Minute Volume Vent Mode A-C Tidal Volume 450 POC PEEP 10 Blood Gas Notified Whom ICU MD Blood Gas Notified Time 730 Sodium Potassium Chloride Carbon Dioxide Anion Gap BUN Creatinine Estim Creat Clear Calc Est GFR (MDRD) Af Amer Est GFR (MDRD) Non-Af BUN/Creatinine Ratio Glucose Lactic Acid Calcium Phosphorus Magnesium Total Bilirubin Direct Bilirubin AST ALT Alkaline Phosphatase Total Creatine Kinase Troponin I Total Protein Albumin Globulin Serum , Qual Urine Color Urine Clarity Urine pH Ur Specific [place] Urine Protein Urine Glucose (UA) Urine Ketones Urine Occult Blood Urine Nitrite Urine Bilirubin Urine Urobilinogen Ur Leukocyte Esterase Urine RBC Urine WBC Ur Squamous Epith Cells Amorphous Sediment Urine Bacteria Coarse Granular Casts Urine Mucus Urine Opiates Screen Urine Methadone Screen Ur Barbiturates Screen Ur Phencyclidine Scrn Ur Amphetamines Screen U Methamphetamin-MDMA U Benzodiazepines Scrn Urine Cocaine Screen U Cannabinoids Screen Ur Drug Screen Comment HIV 1&2 Antibody Medical Necessity - Tobacco Use Smoking Status: Current every day smoker - Unclear pack per day history. Tobacco Use: Cigarettes Assessment/Plan All Active Problems (Last Reviewed 12/13/18 @ 15:11 by Sangeeta Bailey) Acute respiratory failure with hypoxia (Acute) Pneumonia (Acute) Sepsis (Acute) Cardiac enzymes elevated (Acute) Dental abscess (Acute) Upper respiratory infection (Acute) Impressions 1. severe sepsis due to multilobar pneumonia - suspected aspiration 2. Acute hypoxic respiratory failure 3. Rhabdomyolysis 4. History of hepatitis C 5. Bipolar disorder 6. Tobacco dependence 7. Polysubstance abuse 8. Hypocalcemia 9. Elevated troponin 10. Sinus tachycardia 11. Abnormal LFTs 12. Possible history of endocarditis 13. History of asthma ECHO ordered for today to look for wall motion abnormalities and valvular disease CE series Continue Zosyn and vancomycin. If the MRSA nasal swab is negative we will likely discontinue vancomycin. Will need to be on medication for BPD - reconciliation may not be accurate.....will attempt to see if [facility] obtain records from Dr. Ely Scott lab later today HIV is negative Code Visit Inpatient E&M: [id number] Subs Hosp L3
[2019-01-12] MEDS: Lactated Ringers 1,000 ML 150 ML IV ×3 (08:16→21:07)
[2019-01-12] MEDS: Aspirin 81 MG TAB.CHEW GT (10:07)
[2019-01-12] MEDS: Chlorhexidine 15 ML PO ×2 (10:07→21:08)
--- NOTE | 2019-01-12 10:39 | CASEMGMT ---
SW participated in ICU rounds. Pt is currently on a ventilator. As per PCP notes, pt was referred to psychiatry in November. SW called [facility], to verify medications and diagnoses. Pt has not been there. SW called PCP office to see where pt was referred--she was referred to [facility]. SW will continue to follow and will speak w/pt when she is able to speak w/SW. IAIN Fink, [employer]
[2019-01-12 11:38] LABS: M R Staph aureus DNA By PCR POSITIVE (Negative); Probe Check PASS
[2019-01-12] MEDS: 0.9% NaCl Peripheral Flush Adult/Peds IV (11:48)
[2019-01-12] MEDS: Vital AF 1.2 Cal Liquid 1,000 ML 65 ML GT (11:48)
[2019-01-12] MEDS: fentaNYL drip 100 ML 2.5 MCG IV ×2 (12:25→23:11)
[2019-01-12 12:47] LABS: ALB/GLOB Ratio 0.6 RATIO (0.9-2.4); AST(SGOT) 201 U/L (15-37); Alanine Aminotransfer ALT/SGPT 78 U/L (13-56); Albumin, Serum 2.2 g/dL (3.2-5.0); Alkaline Phosphatase 73 U/L (45-117); Anion Gap 11 (5-15); BUN 23 mg/dL (7-18); BUN/Creat Ratio 29.9 RATIO (10-20); CPK Total, Creatine Kinase 4297 U/L (26-192); Calcium,Total 7.5 mg/dL (8.5-10.1); Chloride 115 mmol/L (98-107); Cholesterol 53 mg/dL (200); Creatinine, Serum 0.77 mg/dL (0.55-1.02); EST Glomerular Filtration Rate 91 mL/min (>60); Est Glom Filt Rate - Afr Amer 110 mL/min (>60); Globulin 3.9 g/dL (2.2-4.2); Glucose 102 mg/dL (74-106); High Density Lipoprotein 11 mg/dL; Potassium 3.4 mmol/L (3.5-5.1); Protein, Total 6.1 g/dL (6.4-8.2); Sodium Level 145 mmol/L (136-145); Triglycerides 196 mg/dL; Very Low Density Lipoprotein 39 mg/dL (5-40)
[2019-01-12 15:35] LABS: Absolute Lymphocyte Count 4.43 X10^3/ul (0.83-4.51); Absolute Neutrophil Count 18.1 X10^3/uL (2.0-7.7); Basophil# 0.05 X10^3/uL; Basophil% 0.2 % (0-1); Eosinophil# 0.03 X10^3/uL; Eosinophils% 0.1 % (0-5); Hematocrit 36.4 % (37-47); Hemoglobin 12.1 g/dl (12.0-15.0); Lymphocyte # 4.43 X10^3/ul (4.0); Lymphocyte % 18.5 % (19-41); Mean Corp Hgb Conc 33.2 g/gl (32-36); Mean Corpuscular Hgb 28.9 pg (27.0-32.0); Mean Corpuscular Volume 86.9 fL (81-99); Mean Platelet Vol. 11.4 fl (6.2-12.0); Monocyte# 1.29 X10^3/uL; Monocyte% 5.4 % (0-10); Neutrophil # 18.07 X10^3/uL (2.7-7.7); Neutrophil % 75.4 % (47-70); Platelet Count 356 K/mm3 (150-450); RBC Distribution Width CV 13.6 % (11.6-14.6); RBC Distribution Width SD 43.2 fl (35.1-43.9); Red Blood Count 4.19 M/mm3 (4.2-5.4)
[2019-01-12 15:37] LABS: POSITIVE COUNT NO; POSITIVE DIFFERENTIAL NO; POSITIVE MORPHOLOGY NO
[2019-01-12] MEDS: OSELTAMIVIR PHOSPHATE 6 MG/ML BOTTLE 75 MG GT ×2 (15:54→21:09)
--- NOTE | 2019-01-12 21:56 | ED.RN ---
information looked up for [place] police at this time, tox screen
[2019-01-13] VITALS (44 sets, daily range): BP systolic 80–135; BP diastolic 44–94; PULSE 90–120; RESP 16–40; TEMP 36.4–38.7; O2SAT 70–95
[2019-01-13] MEDS: Propofol 10MG/Ml 1,000 MG/100 ML Bottle 5.16 MG CONT INF ×5 (00:40→22:54)
[2019-01-13] MEDS: Ipratropium/Albuterol Sulfate 3 ML AMPUL.NEB INHALATION ×6 (02:30→23:20)
[2019-01-13 04:42] LABS: Hematocrit 34.4 % (37-47); Hemoglobin 11.5 g/dl (12.0-15.0); Mean Corp Hgb Conc 33.4 g/gl (32-36); Mean Corpuscular Hgb 29.1 pg (27.0-32.0); Mean Corpuscular Volume 87.1 fL (81-99); Mean Platelet Vol. 11.3 fl (6.2-12.0); Platelet Count 341 K/mm3 (150-450); RBC Distribution Width CV 13.6 % (11.6-14.6); RBC Distribution Width SD 42.2 fl (35.1-43.9); Red Blood Count 3.95 M/mm3 (4.2-5.4); White Blood Count 18.9 K/mm3 (4.4-11.0)
[2019-01-13 04:56] LABS: Scan Indicated on CBC? Y/N NO
[2019-01-13] MEDS: Lactated Ringers 1,000 ML 150 ML IV (05:20)
[2019-01-13] MEDS: Enoxaparin 100 MG/ML Syringe 90 MG SC (05:21)
[2019-01-13 05:22] LABS: ALB/GLOB Ratio 0.5 RATIO (0.9-2.4); AST(SGOT) 124 U/L (15-37); Alanine Aminotransfer ALT/SGPT 65 U/L (13-56); Alkaline Phosphatase 74 U/L (45-117); Anion Gap 7 (5-15); BUN 15 mg/dL (7-18); BUN/Creat Ratio 22.5 RATIO (10-20); CPK Total, Creatine Kinase 1503 U/L (26-192); Calcium,Total 7.5 mg/dL (8.5-10.1); Chloride 115 mmol/L (98-107); Creatinine, Serum 0.67 mg/dL (0.55-1.02); EST Glomerular Filtration Rate 107 mL/min (>60); Est Glom Filt Rate - Afr Amer 129 mL/min (>60); Estimated Creatinine Clearance 102.17 ml/min; Globulin 3.9 g/dL (2.2-4.2); Glucose 150 mg/dL (74-106); Magnesium 2.3 mg/dL (1.6-2.6); Phosphorus 1.5 mg/dL (2.5-4.9); Potassium 3.5 mmol/L (3.5-5.1); Protein, Total 5.9 g/dL (6.4-8.2); Sodium Level 145 mmol/L (136-145)
--- NOTE | 2019-01-13 06:09 | PCM.PN.INT ---
Subjective: The patient was seen and examined at the bedside this morning. Events from the last 24 hours have been reviewed. The patient is currently afebrile, hemodynamically stable and maintaining appropriate oxygen saturations on assist control mode mechanical ventilation with an FiO2 requirement of 70%. The patient remains on sedation with propofol at 25 mg/h and fentanyl at 100 mcg. The patient was not a candidate for spontaneous breathing trial this morning. There is been a great deal of secretions being suctioned from the patient's endotracheal tube. Tube feeds are currently at goal. The patient was started on Tamiflu yesterday after her respiratory viral panel revealed influenza A. Objective: The patient's most recent lab work, culture data and imaging studies have all been personally reviewed. Surface echocardiogram revealed evidence of stage I diastolic dysfunction with an ejection fraction of 65%. Right ventricular systolic pressure was estimated to be 53 mmHg. Liver ultrasound revealed mild hepatomegaly along with a trace amount of pericholecystic fluid and sludge within the gallbladder lumen. Respiratory viral panel was positive for influenza A. Strep and urine Legionella antigens were both negative. Blood and sputum cultures are pending. General: - - Remains intubated, sedated and mechanically ventilated. HEENT: Atraumatic, Normocephalic, Sluggish Pupils Oral: No Gingival or Mucosal Lesions/ Ulcerations, - - Endotracheal and OG tubes remain in place Neck: Supple, No Nodes, Trachea Midline Lungs: No rhonchi, No wheeze, No rales, Diminished Cardiovascular: Regular rate, Regular Rhythm, Normal S1, Normal S2, Murmur, Tachycardic Abdomen: Soft, Non Tender, Non-Distended, Hypoactive Bowel Sounds Extremities: No clubbing, No cyanosis, Edema Skin: No breakdown Musculoskeletal: No Muscle Wasting Lymphatic: No Cervical, Supraclavicular, or Inguinal Adenopathy Neurological: - - No focal neurological deficits. The patient is currently sedated Vital Signs Temp Pulse Resp BP Pulse Ox 36.6 C 111 H 31 H 95/59 L 90 01/13/19 04:00 01/13/19 06:00 01/13/19 06:00 01/13/19 06:00 01/13/19 06:00 Oxygen Delivery Method Mechanical Ventilator Weight: 202 lb 2.622 oz Body Mass Index (BMI) 32.7 Intake and Output for Last 24 Hours 01/11/19 01/12/19 01/13/19 23:59 23:59 23:59 Intake Total 4766 / 4766 2922 / 2922 Output Total 550 / 550 1325 / 1325 450 / 450 Balance -550 / -550 3441 / 3441 2472 / 2472 Labs (Last 48 Hours) 01/11/19 01/11/19 01/11/19 21:15 21:15 21:31 WBC RBC Hgb Hct MCV MCH MCHC RDW RDW Differential Plt Count MPV Immature Gran % (Auto) Neut % (Auto) Lymph % (Auto) [place] % (Auto) Eos % (Auto) Baso % (Auto) Absolute Neuts (auto) Absolute Lymphs (auto) Total Counted Nucleated RBC % Differential Comment Platelet Estimate Plt Morphology Comment Absolute Retic PT INR Specimen Type ART Sample Site L Radial pH 7.26 L Bicarbonate Actual 17.6 L POC Total CO2 19 Base Excess -9 L O2 Saturation 97 O2 % 100 ABG pCO2 39.1 ABG pO2 109 H Kvng Test NA Respiration Rate 30 O2 Delivery Device Vent Minute Volume 13.00 Vent Mode A-C Tidal Volume 529 POC PEEP 10 Blood Gas Notified Whom ED MD Blood Gas Notified Time Sodium Potassium Chloride Carbon Dioxide Anion Gap BUN Creatinine Estim Creat Clear Calc Est GFR (MDRD) Af Amer Est GFR (MDRD) Non-Af BUN/Creatinine Ratio Glucose Lactic Acid Calcium Phosphorus Magnesium Total Bilirubin Direct Bilirubin AST ALT Alkaline Phosphatase Total Creatine Kinase Troponin I Total Protein Albumin Globulin Albumin/Globulin Ratio Triglycerides Cholesterol LDL Cholesterol VLDL Cholesterol HDL Cholesterol Serum , Qual Urine Color Yellow Urine Clarity Clear Urine pH 5.0 Ur Specific [place] 1.025 Urine Protein 100 H Urine Glucose (UA) Normal Urine Ketones 5 H Urine Occult Blood 250 H Urine Nitrite Positive H Urine Bilirubin 1 H Urine Urobilinogen 1 H Ur Leukocyte Esterase 25 H Urine RBC 0 SEEN Urine WBC 0-5 SEEN Ur Squamous Epith Cells 0 SEEN Amorphous Sediment 2+ Urine Bacteria 0 SEEN Coarse Granular Casts 0-5 SEEN Urine Mucus 0 SEEN Urine Opiates Screen POSITIVE H Urine Methadone Screen NEGATIVE Ur Barbiturates Screen NEGATIVE Ur Phencyclidine Scrn NEGATIVE Ur Amphetamines Screen POSITIVE H U Methamphetamin-MDMA POSITIVE H U Benzodiazepines Scrn NEGATIVE Urine Cocaine Screen NEGATIVE U Cannabinoids Screen NEGATIVE Ur Drug Screen Comment Hepatitis A IgM Ab Hepatitis A Ab Total Hep Bs Antigen Hep B Core Total Ab Hep B Core IgM Ab HIV 1&2 Antibody MRSA (PCR) 01/11/19 01/11/19 01/11/19 22:45 22:45 22:45 WBC 25.0 H RBC 4.26 Hgb 12.6 Hct 36.2 L MCV 85.0 MCH 29.6 MCHC 34.8 RDW 13.2 RDW Differential 40.2 Plt Count 351 MPV 11.5 Immature Gran % (Auto) 0.600 Neut % (Auto) 84.9 H Lymph % (Auto) 8.8 L [place] % (Auto) 5.5 Eos % (Auto) 0.0 Baso % (Auto) 0.2 Absolute Neuts (auto) 21.2 H Absolute Lymphs (auto) 2.19 Total Counted Not Reportable Nucleated RBC % 0.3 Differential Comment SCAN Platelet Estimate ADEQUATE Plt Morphology Comment LARGE Absolute Retic 0.07 PT INR Specimen Type Sample Site pH Bicarbonate Actual POC Total CO2 Base Excess O2 Saturation O2 % ABG pCO2 ABG pO2 Kvng Test Respiration Rate O2 Delivery Device Minute Volume Vent Mode Tidal Volume POC PEEP Blood Gas Notified Whom Blood Gas Notified Time Sodium 140 Potassium 3.8 Chloride 113 H Carbon Dioxide 16.0 L Anion Gap 11 BUN 44 H Creatinine 1.08 H Estim Creat Clear Calc 63.38 Est GFR (MDRD) Af Amer 74 Est GFR (MDRD) Non-Af 61 BUN/Creatinine Ratio 40.7 H Glucose 103 Lactic Acid 1.7 Calcium 6.5 L* Phosphorus Magnesium Total Bilirubin 0.60 Direct Bilirubin 0.17 AST 280 H ALT 85 H Alkaline Phosphatase 83 Total Creatine Kinase Troponin I 0.212 H Total Protein 6.3 L Albumin 2.3 L Globulin 4.0 Albumin/Globulin Ratio Triglycerides Cholesterol LDL Cholesterol VLDL Cholesterol HDL Cholesterol Serum , Qual Urine Color Urine Clarity Urine pH Ur Specific [place] Urine Protein Urine Glucose (UA) Urine Ketones Urine Occult Blood Urine Nitrite Urine Bilirubin Urine Urobilinogen Ur Leukocyte Esterase Urine RBC Urine WBC Ur Squamous Epith Cells Amorphous Sediment Urine Bacteria Coarse Granular Casts Urine Mucus Urine Opiates Screen Urine Methadone Screen Ur Barbiturates Screen Ur Phencyclidine Scrn Ur Amphetamines Screen U Methamphetamin-MDMA U Benzodiazepines Scrn Urine Cocaine Screen U Cannabinoids Screen Ur Drug Screen Comment Hepatitis A IgM Ab Hepatitis A Ab Total Hep Bs Antigen Hep B Core Total Ab Hep B Core IgM Ab HIV 1&2 Antibody MRSA (PCR) 01/11/19 01/11/19 01/11/19 22:45 22:45 22:45 WBC RBC Hgb Hct MCV MCH MCHC RDW RDW Differential Plt Count MPV Immature Gran % (Auto) Neut % (Auto) Lymph % (Auto) [place] % (Auto) Eos % (Auto) Baso % (Auto) Absolute Neuts (auto) Absolute Lymphs (auto) Total Counted Nucleated RBC % Differential Comment Platelet Estimate Plt Morphology Comment Absolute Retic PT INR Specimen Type Sample Site pH Bicarbonate Actual POC Total CO2 Base Excess O2 Saturation O2 % ABG pCO2 ABG pO2 Kvng Test Respiration Rate O2 Delivery Device Minute Volume Vent Mode Tidal Volume POC PEEP Blood Gas Notified Whom Blood Gas Notified Time Sodium Potassium Chloride Carbon Dioxide Anion Gap BUN Creatinine Estim Creat Clear Calc Est GFR (MDRD) Af Amer Est GFR (MDRD) Non-Af BUN/Creatinine Ratio Glucose Lactic Acid Calcium Phosphorus 2.6 Magnesium 2.2 Total Bilirubin Direct Bilirubin AST ALT Alkaline Phosphatase Total Creatine Kinase 8489 H Troponin I Total Protein Albumin Globulin Albumin/Globulin Ratio Triglycerides Cholesterol LDL Cholesterol VLDL Cholesterol HDL Cholesterol Serum , Qual NEGATIVE Urine Color Urine Clarity Urine pH Ur Specific [place] Urine Protein Urine Glucose (UA) Urine Ketones Urine Occult Blood Urine Nitrite Urine Bilirubin Urine Urobilinogen Ur Leukocyte Esterase Urine RBC Urine WBC Ur Squamous Epith Cells Amorphous Sediment Urine Bacteria Coarse Granular Casts Urine Mucus Urine Opiates Screen Urine Methadone Screen Ur Barbiturates Screen Ur Phencyclidine Scrn Ur Amphetamines Screen U Methamphetamin-MDMA U Benzodiazepines Scrn Urine Cocaine Screen U Cannabinoids Screen Ur Drug Screen Comment Hepatitis A IgM Ab Hepatitis A Ab Total Hep Bs Antigen Hep B Core Total Ab Hep B Core IgM Ab HIV 1&2 Antibody Non-Reactive MRSA (PCR) 01/12/19 01/12/19 01/12/19 07:40 07:45 09:05 WBC RBC Hgb Hct MCV MCH MCHC RDW RDW Differential Plt Count MPV Immature Gran % (Auto) Neut % (Auto) Lymph % (Auto) [place] % (Auto) Eos % (Auto) Baso % (Auto) Absolute Neuts (auto) Absolute Lymphs (auto) Total Counted Nucleated RBC % Differential Comment Platelet Estimate Plt Morphology Comment Absolute Retic PT 15.6 H INR 1.3 Specimen Type ART Sample Site R Radial pH 7.36 Bicarbonate Actual 15.8 L POC Total CO2 17 Base Excess -10 L O2 Saturation 96 O2 % 60 ABG pCO2 27.9 L ABG pO2 83 Kvng Test Respiration Rate 16 O2 Delivery Device Vent Minute Volume Vent Mode A-C Tidal Volume 450 POC PEEP 10 Blood Gas Notified Whom ICU MD Blood Gas Notified Time 730 Sodium Potassium Chloride Carbon Dioxide Anion Gap BUN Creatinine Estim Creat Clear Calc Est GFR (MDRD) Af Amer Est GFR (MDRD) Non-Af BUN/Creatinine Ratio Glucose Lactic Acid Calcium Phosphorus Magnesium Total Bilirubin Direct Bilirubin AST ALT Alkaline Phosphatase Total Creatine Kinase Troponin I Total Protein Albumin Globulin Albumin/Globulin Ratio Triglycerides Cholesterol LDL Cholesterol VLDL Cholesterol HDL Cholesterol Serum , Qual Urine Color Urine Clarity Urine pH Ur Specific [place] Urine Protein Urine Glucose (UA) Urine Ketones Urine Occult Blood Urine Nitrite Urine Bilirubin Urine Urobilinogen Ur Leukocyte Esterase Urine RBC Urine WBC Ur Squamous Epith Cells Amorphous Sediment Urine Bacteria Coarse Granular Casts Urine Mucus Urine Opiates Screen Urine Methadone Screen Ur Barbiturates Screen Ur Phencyclidine Scrn Ur Amphetamines Screen U Methamphetamin-MDMA U Benzodiazepines Scrn Urine Cocaine Screen U Cannabinoids Screen Ur Drug Screen Comment Hepatitis A IgM Ab Hepatitis A Ab Total Hep Bs Antigen Hep B Core Total Ab Hep B Core IgM Ab HIV 1&2 Antibody MRSA (PCR) POSITIVE H 01/12/19 01/12/19 01/12/19 11:50 11:50 11:50 WBC 24.0 H RBC 4.19 L Hgb 12.1 Hct 36.4 L MCV 86.9 MCH 28.9 MCHC 33.2 RDW 13.6 RDW Differential 43.2 Plt Count 356 MPV 11.4 Immature Gran % (Auto) 0.400 Neut % (Auto) 75.4 H Lymph % (Auto) 18.5 L [place] % (Auto) 5.4 Eos % (Auto) 0.1 Baso % (Auto) 0.2 Absolute Neuts (auto) 18.1 H Absolute Lymphs (auto) 4.43 Total Counted Not Reportable Nucleated RBC % Differential Comment Platelet Estimate Plt Morphology Comment Absolute Retic PT INR Specimen Type Sample Site pH Bicarbonate Actual POC Total CO2 Base Excess O2 Saturation O2 % ABG pCO2 ABG pO2 Kvng Test Respiration Rate O2 Delivery Device Minute Volume Vent Mode Tidal Volume POC PEEP Blood Gas Notified Whom Blood Gas Notified Time Sodium 145 Potassium 3.4 L Chloride 115 H Carbon Dioxide 19.0 L Anion Gap 11 BUN 23 H Creatinine 0.77 Estim Creat Clear Calc 88.90 Est GFR (MDRD) Af Amer 110 Est GFR (MDRD) Non-Af 91 BUN/Creatinine Ratio 29.9 H Glucose 102 Lactic Acid Calcium 7.5 L Phosphorus Magnesium Total Bilirubin 0.50 Direct Bilirubin AST 201 H ALT 78 H Alkaline Phosphatase 73 Total Creatine Kinase 4297 H Troponin I Total Protein 6.1 L Albumin 2.2 L Globulin 3.9 Albumin/Globulin Ratio 0.6 L Triglycerides 196 Cholesterol 53 LDL Cholesterol 3 VLDL Cholesterol 39 HDL Cholesterol 11 L Serum , Qual Urine Color Urine Clarity Urine pH Ur Specific [place] Urine Protein Urine Glucose (UA) Urine Ketones Urine Occult Blood Urine Nitrite Urine Bilirubin Urine Urobilinogen Ur Leukocyte Esterase Urine RBC Urine WBC Ur Squamous Epith Cells Amorphous Sediment Urine Bacteria Coarse Granular Casts Urine Mucus Urine Opiates Screen Urine Methadone Screen Ur Barbiturates Screen Ur Phencyclidine Scrn Ur Amphetamines Screen U Methamphetamin-MDMA U Benzodiazepines Scrn Urine Cocaine Screen U Cannabinoids Screen Ur Drug Screen Comment Hepatitis A IgM Ab Pending Hepatitis A Ab Total Pending Hep Bs Antigen Pending Hep B Core Total Ab Pending Hep B Core IgM Ab Pending HIV 1&2 Antibody MRSA (PCR) 01/12/19 01/12/19 01/12/19 11:50 14:55 17:45 WBC RBC Hgb Hct MCV MCH MCHC RDW RDW Differential Plt Count MPV Immature Gran % (Auto) Neut % (Auto) Lymph % (Auto) [place] % (Auto) Eos % (Auto) Baso % (Auto) Absolute Neuts (auto) Absolute Lymphs (auto) Total Counted Nucleated RBC % Differential Comment Platelet Estimate Plt Morphology Comment Absolute Retic PT INR Specimen Type Sample Site pH Bicarbonate Actual POC Total CO2 Base Excess O2 Saturation O2 % ABG pCO2 ABG pO2 Kvng Test Respiration Rate O2 Delivery Device Minute Volume Vent Mode Tidal Volume POC PEEP Blood Gas Notified Whom Blood Gas Notified Time Sodium Potassium Chloride Carbon Dioxide Anion Gap BUN Creatinine Estim Creat Clear Calc Est GFR (MDRD) Af Amer Est GFR (MDRD) Non-Af BUN/Creatinine Ratio Glucose Lactic Acid Calcium Phosphorus Magnesium Total Bilirubin Direct Bilirubin AST ALT Alkaline Phosphatase Total Creatine Kinase Troponin I 0.361 H 0.303 H 0.304 H Total Protein Albumin Globulin Albumin/Globulin Ratio Triglycerides Cholesterol LDL Cholesterol VLDL Cholesterol HDL Cholesterol Serum , Qual Urine Color Urine Clarity Urine pH Ur Specific [place] Urine Protein Urine Glucose (UA) Urine Ketones Urine Occult Blood Urine Nitrite Urine Bilirubin Urine Urobilinogen Ur Leukocyte Esterase Urine RBC Urine WBC Ur Squamous Epith Cells Amorphous Sediment Urine Bacteria Coarse Granular Casts Urine Mucus Urine Opiates Screen Urine Methadone Screen Ur Barbiturates Screen Ur Phencyclidine Scrn Ur Amphetamines Screen U Methamphetamin-MDMA U Benzodiazepines Scrn Urine Cocaine Screen U Cannabinoids Screen Ur Drug Screen Comment Hepatitis A IgM Ab Hepatitis A Ab Total Hep Bs Antigen Hep B Core Total Ab Hep B Core IgM Ab HIV 1&2 Antibody MRSA (PCR) 01/13/19 01/13/19 04:10 04:10 WBC 18.9 H RBC 3.95 L Hgb 11.5 L Hct 34.4 L MCV 87.1 MCH 29.1 MCHC 33.4 RDW 13.6 RDW Differential 42.2 Plt Count 341 MPV 11.3 Immature Gran % (Auto) Neut % (Auto) Lymph % (Auto) [place] % (Auto) Eos % (Auto) Baso % (Auto) Absolute Neuts (auto) Absolute Lymphs (auto) Total Counted Nucleated RBC % Differential Comment Platelet Estimate Plt Morphology Comment Absolute Retic PT INR Specimen Type Sample Site pH Bicarbonate Actual POC Total CO2 Base Excess O2 Saturation O2 % ABG pCO2 ABG pO2 Kvng Test Respiration Rate O2 Delivery Device Minute Volume Vent Mode Tidal Volume POC PEEP Blood Gas Notified Whom Blood Gas Notified Time Sodium 145 Potassium 3.5 Chloride 115 H Carbon Dioxide 23.0 Anion Gap 7 BUN 15 Creatinine 0.67 Estim Creat Clear Calc 102.17 Est GFR (MDRD) Af Amer 129 Est GFR (MDRD) Non-Af 107 BUN/Creatinine Ratio 22.5 H Glucose 150 H Lactic Acid Calcium 7.5 L Phosphorus 1.5 L Magnesium 2.3 Total Bilirubin 0.30 Direct Bilirubin AST 124 H ALT 65 H Alkaline Phosphatase 74 Total Creatine Kinase 1503 H Troponin I Total Protein 5.9 L Albumin 2.0 L Globulin 3.9 Albumin/Globulin Ratio 0.5 L Triglycerides Cholesterol LDL Cholesterol VLDL Cholesterol HDL Cholesterol Serum , Qual Urine Color Urine Clarity Urine pH Ur Specific [place] Urine Protein Urine Glucose (UA) Urine Ketones Urine Occult Blood Urine Nitrite Urine Bilirubin Urine Urobilinogen Ur Leukocyte Esterase Urine RBC Urine WBC Ur Squamous Epith Cells Amorphous Sediment Urine Bacteria Coarse Granular Casts Urine Mucus Urine Opiates Screen Urine Methadone Screen Ur Barbiturates Screen Ur Phencyclidine Scrn Ur Amphetamines Screen U Methamphetamin-MDMA U Benzodiazepines Scrn Urine Cocaine Screen U Cannabinoids Screen Ur Drug Screen Comment Hepatitis A IgM Ab Hepatitis A Ab Total Hep Bs Antigen Hep B Core Total Ab Hep B Core IgM Ab HIV 1&2 Antibody MRSA (PCR) Microbiology 01/12/19 07:40 Mucosa - Nasopharyngeal Respiratory Panel (PCR) - Final Influenza A (Subtype H3) 01/12/19 04:15 Sputum, Induced/[place] Gram Stain - Final 01/11/19 21:15 Urine Catheter - Khalil Legionella Antigen - Final 01/11/19 21:15 Urine Catheter - Khalil Streptococcus pneumoniae Antigen (M - Final Clinical Impression(s) from Imaging Studies Chest X-Ray 01/11/19 20:08 IMPRESSION: Endotracheal and nasogastric tubes appearing in adequate position. Bilateral pulmonary infiltrates left side more severely affected than right. Electronically Signed: Keegan Munoz MD at 21:57 EDT , Service support , Liver Ultrasound 01/12/19 05:55 IMPRESSION: Mild hepatomegaly. Trace amount of pericholecystic fluid and sludge within the gallbladder lumen. Electronically Signed: Ever See, at 16:11 EDT , Service support , Medical Necessity - Tobacco Use Smoking Status: Current every day smoker - Unclear pack per day history. Tobacco Use: Cigarettes Assessment/Plan All Active Problems (Last Reviewed 12/13/18 @ 15:11 by Sangeeta Bailey) Acute respiratory failure with hypoxia (Acute) Pneumonia (Acute) Sepsis (Acute) Cardiac enzymes elevated (Acute) Dental abscess (Acute) Upper respiratory infection (Acute) RECOMMENDATIONS: 1. Stop continuous supplemental IV fluids. Continue tube feeds as ordered. 2. Obtain repeat plain film chest x-ray, over concerns that the patient may be developing ARDS 3. Phosphorus repletion as ordered 4. Continue Tamiflu and broad-spectrum antimicrobials 5. Continue bronchodilators 6. Continue tube feeds and free water flushes 7. Continue appropriate ICU prophylaxis IMPRESSIONS: 1. Acute hypoxemic respiratory failure The patient was intubated in the emergency department due to refractory agitation and hypoxemia secondary to aspiration versus community-acquired pneumonia. The patient was subsequently found to be positive for influenza A. My concern is that she may have underlying influenza along with a superimposed bacterial infection with Staphylococcus. She remains on broad-spectrum antimicrobials and Tamiflu, pending finalized infectious workup. We will plan to continue to wean FiO2 to maintain an oxygen saturation at or above 90%. We will obtain repeat plain film chest x-ray this morning. Continue scheduled bronchodilators. Continue tube feeds as ordered. 2. Severe sepsis secondary to influenza A with superimposed bacterial pneumonia The patient was adequately volume resuscitated. She remains hemodynamically stable. She will remain on Tamiflu and broad-spectrum antimicrobials, pending finalized infectious workup. 3. Toxic/metabolic encephalopathy Likely multifactorial in etiology with drug intoxication/overdose and pulmonary infectious process contributing. Continue current supportive measures with invasive mechanical ventilatory support. Continue propofol and fentanyl for sedation with a goal to maintain a RASS of -1 to 1. 4. Personal history of endocarditis/heart failure with preserved ejection fraction/tricuspid valve insufficiency/pulmonary hypertension Continue current supportive measures as noted above. The patient may require eventual initiation of diuretic therapy. 5. History of polysubstance abuse/tobacco dependency/reported baseline asthma/bipolar disorder/GERD Complicates care, management, recovery and prognosis. Nicotine replacement therapy can be utilized while the patient is admitted to the hospital. Continue PPI therapy. TIME: 40 minutes of critical care time, independent of procedures, was spent addressing the patient's acute hypoxemic respiratory failure, severe sepsis, community-acquired versus aspiration pneumonia, influenza A infection, toxic/metabolic encephalopathy, review of all data and collaboration with the care team. ([id number]) Code Visit [id number]: [id number] Critical care first hour
--- NOTE | 2019-01-13 06:55 | PCM.PROGNOTE ---
Patient Problems: Active and Suspected Problems (Last Reviewed 12/13/18 @ 15:11 by Sangeeta Bailey) Acute respiratory failure with hypoxia (Acute) Pneumonia (Acute) Sepsis (Acute) Cardiac enzymes elevated (Acute) Subjective: Day #3 Kandiso and Zotheresan All events of the past 24 hours of been reviewed. She remains on a ventilator sedated with propofol and fentanyl. She has been afebrile since last evening at 10:30 PM. Vital signs are stable. BP is on the low side however she is maintaining this blood pressure without pressors and the mean arterial pressure is greater than 65. She remains tachycardic with the heart rate ranging from 107-121. She is maintaining an oxygen saturation of 90-92% on a 70% FIO2. Fluid balance on 01/12/2019 was +3441. Fluid balance since admission is +5363. White blood cell count today is 18.9. Hemoglobin is 11.5 and platelets are within normal limits. BMP is unremarkable. BUN is 15 with a creatinine of 0.67. Phosphorus is low at 1.5 and the magnesium is normal at 2.3. Total [place] 1503. Troponin peaked at 0.361 LDL is 3 and the HDL is 11. Nasal swab was positive for MRSA. Hepatitis panel is pending. Sputum Gram stain had 4+ white blood cells with 3+ gram-positive cocci. She had one blood culture that is pending. Streptococcal and Legionella antigens are negative. The respiratory panel was positive for influenza A, subtype H3. BC done at admission is negative to date Liver ultrasound showed mild hepatomegaly with a trace amount of pericholecystic fluid and sludge within the gallbladder lumen. CXR looks worse today and looks ass though she may develop ARDS ECHO Interpretation Summary The estimated ejection fraction is 65 %. Stage 1 diastolic dysfunction. Moderate (2+) tricuspid valve insufficiency. Right ventricular systolic pressure estimated to be 53 mmHg. Moderate pulmonary hypertension. Deeply sedated. Does not respond to calling her name. - Physical Exam General: - - Dated and mechanically ventilated HEENT: Atraumatic, - - the eyelids have mattering Oral: Dry Mucosa Neck: Supple, No Nodes, Trachea Midline Lungs: - - coarse breath sounds, no wheezes Cardiovascular: Regular Rhythm, Normal S1, Normal S2, Murmur - at the LLSB - likely due to TR.....previous hx of endocarditis, No Gallop, Tachycardic Abdomen: Soft, Non-Distended, Hypoactive Bowel Sounds, - - No guarding with palpation Extremities: No clubbing, No cyanosis, Edema - of the feet, Peripheral Pulses Normal Skin: No rashes, No breakdown Neurological: - - no focal neurologic deficits Vital Signs Temp Pulse Resp BP Pulse Ox 97.8 F 111 H 31 H 95/59 L 90 01/13/19 04:00 01/13/19 06:00 01/13/19 06:00 01/13/19 06:00 01/13/19 06:00 Oxygen Delivery Method Mechanical Ventilator Weight: 202 lb 2.622 oz Body Mass Index (BMI) 32.7 Intake and Output for Last 24 Hours 01/11/19 01/12/19 01/13/19 23:59 23:59 23:59 Intake Total 4766 / 4766 2922 / 2922 Output Total 550 / 550 1325 / 1325 450 / 450 Balance -550 / -550 3441 / 3441 2472 / 2472 Microbiology Past 72 Hours 01/12/19 07:40 Respiratory Panel (PCR) - Final Mucosa - Nasopharyngeal Influenza A (Subtype H3) 01/12/19 04:15 Gram Stain - Final Sputum, Induced/Lukens 01/11/19 21:15 Legionella Antigen - Final Urine Catheter - Khalil 01/11/19 21:15 Streptococcus pneumoniae Antigen (M - Final Urine Catheter - Khalil Laboratory Tests Past 24 Hrs 01/12/19 01/12/19 01/12/19 07:40 07:45 09:05 WBC RBC Hgb Hct MCV MCH MCHC RDW RDW Differential Plt Count MPV Immature Gran % (Auto) Neut % (Auto) Lymph % (Auto) [place] % (Auto) Eos % (Auto) Baso % (Auto) Absolute Neuts (auto) Absolute Lymphs (auto) Total Counted PT 15.6 H INR 1.3 Specimen Type ART Sample Site R Radial pH 7.36 Bicarbonate Actual 15.8 L POC Total CO2 17 Base Excess -10 L O2 Saturation 96 O2 % 60 ABG pCO2 27.9 L ABG pO2 83 Respiration Rate 16 O2 Delivery Device Vent Vent Mode A-C Tidal Volume 450 POC PEEP 10 Blood Gas Notified Whom ICU Blood Gas Notified Time 730 Sodium Potassium Chloride Carbon Dioxide Anion Gap BUN Creatinine Estim Creat Clear Calc Est GFR (MDRD) Af Amer Est GFR (MDRD) Non-Af BUN/Creatinine Ratio Glucose Calcium Phosphorus Magnesium Total Bilirubin AST ALT Alkaline Phosphatase Total Creatine Kinase Troponin I Total Protein Albumin Globulin Albumin/Globulin Ratio Triglycerides Cholesterol LDL Cholesterol VLDL Cholesterol HDL Cholesterol Hepatitis A IgM Ab Hepatitis A Ab Total Hep Bs Antigen Hep B Core Total Ab Hep B Core IgM Ab MRSA (PCR) POSITIVE H 01/12/19 01/12/19 01/12/19 11:50 11:50 11:50 WBC 24.0 H RBC 4.19 L Hgb 12.1 Hct 36.4 L MCV 86.9 MCH 28.9 MCHC 33.2 RDW 13.6 RDW Differential 43.2 Plt Count 356 MPV 11.4 Immature Gran % (Auto) 0.400 Neut % (Auto) 75.4 H Lymph % (Auto) 18.5 L [place] % (Auto) 5.4 Eos % (Auto) 0.1 Baso % (Auto) 0.2 Absolute Neuts (auto) 18.1 H Absolute Lymphs (auto) 4.43 Total Counted Not Reportable PT INR Specimen Type Sample Site pH Bicarbonate Actual POC Total CO2 Base Excess O2 Saturation O2 % ABG pCO2 ABG pO2 Respiration Rate O2 Delivery Device Vent Mode Tidal Volume POC PEEP Blood Gas Notified Whom Blood Gas Notified Time Sodium 145 Potassium 3.4 L Chloride 115 H Carbon Dioxide 19.0 L Anion Gap 11 BUN 23 H Creatinine 0.77 Estim Creat Clear Calc 88.90 Est GFR (MDRD) Af Amer 110 Est GFR (MDRD) Non-Af 91 BUN/Creatinine Ratio 29.9 H Glucose 102 Calcium 7.5 L Phosphorus Magnesium Total Bilirubin 0.50 AST 201 H ALT 78 H Alkaline Phosphatase 73 Total Creatine Kinase 4297 H Troponin I Total Protein 6.1 L Albumin 2.2 L Globulin 3.9 Albumin/Globulin Ratio 0.6 L Triglycerides 196 Cholesterol 53 LDL Cholesterol 3 VLDL Cholesterol 39 HDL Cholesterol 11 L Hepatitis A IgM Ab Pending Hepatitis A Ab Total Pending Hep Bs Antigen Pending Hep B Core Total Ab Pending Hep B Core IgM Ab Pending MRSA (PCR) 01/12/19 01/12/19 01/12/19 11:50 14:55 17:45 WBC RBC Hgb Hct MCV MCH MCHC RDW RDW Differential Plt Count MPV Immature Gran % (Auto) Neut % (Auto) Lymph % (Auto) [place] % (Auto) Eos % (Auto) Baso % (Auto) Absolute Neuts (auto) Absolute Lymphs (auto) Total Counted PT INR Specimen Type Sample Site pH Bicarbonate Actual POC Total CO2 Base Excess O2 Saturation O2 % ABG pCO2 ABG pO2 Respiration Rate O2 Delivery Device Vent Mode Tidal Volume POC PEEP Blood Gas Notified Whom Blood Gas Notified Time Sodium Potassium Chloride Carbon Dioxide Anion Gap BUN Creatinine Estim Creat Clear Calc Est GFR (MDRD) Af Amer Est GFR (MDRD) Non-Af BUN/Creatinine Ratio Glucose Calcium Phosphorus Magnesium Total Bilirubin AST ALT Alkaline Phosphatase Total Creatine Kinase Troponin I 0.361 H 0.303 H 0.304 H Total Protein Albumin Globulin Albumin/Globulin Ratio Triglycerides Cholesterol LDL Cholesterol VLDL Cholesterol HDL Cholesterol Hepatitis A IgM Ab Hepatitis A Ab Total Hep Bs Antigen Hep B Core Total Ab Hep B Core IgM Ab MRSA (PCR) 01/13/19 01/13/19 04:10 04:10 WBC 18.9 H RBC 3.95 L Hgb 11.5 L Hct 34.4 L MCV 87.1 MCH 29.1 MCHC 33.4 RDW 13.6 RDW Differential 42.2 Plt Count 341 MPV 11.3 Immature Gran % (Auto) Neut % (Auto) Lymph % (Auto) [place] % (Auto) Eos % (Auto) Baso % (Auto) Absolute Neuts (auto) Absolute Lymphs (auto) Total Counted PT INR Specimen Type Sample Site pH Bicarbonate Actual POC Total CO2 Base Excess O2 Saturation O2 % ABG pCO2 ABG pO2 Respiration Rate O2 Delivery Device Vent Mode Tidal Volume POC PEEP Blood Gas Notified Whom Blood Gas Notified Time Sodium 145 Potassium 3.5 Chloride 115 H Carbon Dioxide 23.0 Anion Gap 7 BUN 15 Creatinine 0.67 Estim Creat Clear Calc 102.17 Est GFR (MDRD) Af Amer 129 Est GFR (MDRD) Non-Af 107 BUN/Creatinine Ratio 22.5 H Glucose 150 H Calcium 7.5 L Phosphorus 1.5 L Magnesium 2.3 Total Bilirubin 0.30 AST 124 H ALT 65 H Alkaline Phosphatase 74 Total Creatine Kinase 1503 H Troponin I Total Protein 5.9 L Albumin 2.0 L Globulin 3.9 Albumin/Globulin Ratio 0.5 L Triglycerides Cholesterol LDL Cholesterol VLDL Cholesterol HDL Cholesterol Hepatitis A IgM Ab Hepatitis A Ab Total Hep Bs Antigen Hep B Core Total Ab Hep B Core IgM Ab MRSA (PCR) Medical Necessity - Tobacco Use Smoking Status: Current every day smoker - Unclear pack per day history. Tobacco Use: Cigarettes Assessment/Plan All Active Problems (Last Reviewed 12/13/18 @ 15:11 by Sangeeta Bailey) Acute respiratory failure with hypoxia (Acute) Pneumonia (Acute) Sepsis (Acute) Cardiac enzymes elevated (Acute) Dental abscess (Acute) Upper respiratory infection (Acute) Impressions 1. severe sepsis due to multilobar pneumonia - suspected aspiration + Influenza A 2. Acute hypoxic respiratory failure 3. Rhabdomyolysis 4. History of hepatitis C 5. Bipolar disorder 6. Tobacco dependence 7. Polysubstance abuse 8. Hypocalcemia - resolved. Calcium today corrected for hypoalbuminemia is 9.1. 9. Elevated troponin 10. Sinus tachycardia 11. Abnormal LFTs-improving 12. Possible history of endocarditis-tricuspid regurgitation on the echocardiogram. 13. History of asthma 14. Hypophosphatemia 15. Hyperglycemia with no history of diabetes mellitus, not on steroids Phos supplemented by Dr. Levy with potassium phosphate which will increase the potassium also Start Seroquel 50 mg BID Continue TF's Continue vancomycin and Zosyn Continue Tamiflu Check a hemoglobin A1c and start Accu-Cheks every 6 hours with sliding scale insulin coverage No wall motion abnormalities on the ECHO.....does she need to be on Heparin? will discuss with Dr. Levy. [facility] in the a.m. Code Visit Inpatient E&M: [id number] [facility]
--- NOTE | 2019-01-13 07:54 | RAD_ITS ---
STUDY: X-RAY CHEST REASON FOR EXAM: Female, 33 years old. Short of breath. TECHNIQUE: Single AP portable view of the chest. COMPARISON: 01/11/2019. FINDINGS: Endotracheal tube terminates 3.6 cm above the alex. Nasogastric tube terminates in the proximal stomach. Left PICC line terminates in the right atrium. Increasing infiltrate of the lower right lung. Persistent left perihilar and left lung base infiltrate. Normal heart size. Bones and soft tissues unremarkable. RAD/Chest 1 View (Portable) IMPRESSION: Lines and tubes as described. Bilateral infiltrates, increasing in the right lung base since previous study. Electronically Signed: Michael Hernandez MD at 17:20 EDT , Service support ,
[2019-01-13] MEDS: fentaNYL drip 100 ML 2.5 MCG IV ×2 (08:07→17:04)
[2019-01-13] MEDS: Senna/Docusate Sodium 1 Tablet 2 TABLET GT ×2 (10:24→22:54)
[2019-01-13] MEDS: Polyethylene Glycol 3350 17 GM PACKET GT ×2 (10:24→22:54)
[2019-01-13] MEDS: Chlorhexidine 15 ML PO ×2 (10:24→22:54)
[2019-01-13] MEDS: QUEtiapine 25 MG Tablet 50 MG NG ×2 (10:25→22:55)
[2019-01-13] MEDS: OSELTAMIVIR PHOSPHATE 6 MG/ML BOTTLE 75 MG GT ×2 (10:25→22:55)
[2019-01-13] MEDS: Aspirin 81 MG TAB.CHEW GT (10:27)
[2019-01-13 11:09] LABS: Hemoglobin A1c 5.6 % (4.2-6.3)
[2019-01-13 12:08] LABS: HEPATITIS B SURFACE AG Negative (Negative); Hepatitis A AB, Total Negative (Negative); Hepatitis A IgM Antibody Negative (Negative); Hepatitis B Core AB IgM Negative (Negative)
[2019-01-13] MEDS: CHLORHEXIDINE GLUC 2% CLOTH 1 EACH TOWELETTE TOPICAL (12:09)
[2019-01-13 12:16] LABS: Bedside Glucose 146 mg/dL (70-110)
[2019-01-13 12:52] LABS: Vancomycin, Trough Level 5.5 ug/mL (5.0-15.0)
[2019-01-13] MEDS: Acetaminophen 650 MG/20 ML UDC GT ×2 (15:25→23:01)
[2019-01-13] MEDS: Vital AF 1.2 Cal Liquid 1,000 ML 65 ML GT (15:25)
--- NOTE | 2019-01-13 15:57 | PCM.RX.CS ---
Consult Pharmacy has been consulted to manage selected antiobiotic: Vancomycin Type of Consult: Follow-up Suspected Infection: Pneumonia Prior Doses of Antibiotics Received/Current Regimen: Medications Vancomycin HCl 750 mg/ Sodium (Chloride) 265 mls @ 250 mls/hr IV Q12H ILSA Last Admin: 01/13/19 12:09 Dose: 250 mls/hr Labs: Sodium 145 mmol/L (136-145) 01/13/19 04:10 Potassium 3.5 mmol/L (3.5-5.1) 01/13/19 04:10 Chloride 115 mmol/L (98-107) H 01/13/19 04:10 Carbon Dioxide 23.0 mmol/L (21.0-32.0) 01/13/19 04:10 Anion Gap 7 (5-15) 01/13/19 04:10 BUN 15 mg/dL (7-18) 01/13/19 04:10 Creatinine 0.67 mg/dL (0.55-1.02) 01/13/19 04:10 Est GFR (MDRD) Af Amer 129 mL/min (>60) 01/13/19 04:10 Est GFR (MDRD) Non-Af 107 mL/min (>60) 01/13/19 04:10 BUN/Creatinine Ratio 22.5 RATIO (10-20) H 01/13/19 04:10 Glucose 150 mg/dL (74-106) H 01/13/19 04:10 Vancomycin Trough 5.5 ug/mL (5.0-15.0) 01/13/19 12:00 Microbiology: Microbiology 01/12/19 04:15 Sputum, Induced/Lukens Gram Stain - Final 01/12/19 04:15 Sputum, Induced/Lukens Respiratory Culture - Preliminary Staphylococcus aureus 01/12/19 07:40 Mucosa - Nasopharyngeal Respiratory Panel (PCR) - Final Influenza A (Subtype H3) 01/11/19 21:15 Urine Catheter - Khalil Legionella Antigen - Final 01/11/19 21:15 Urine Catheter - Khalil Streptococcus pneumoniae Antigen (M - Final Goal Trough: 10-15 mcg/mL Pharmacy Plan for Drug Dosing: The patient had a trough come back which resulted in a value of 5.5 (drawn 11.5hrs from last administered dose). The goal trough is 10-15. The patient has had a significant improvement in renal function, compared to her levels on admission, which is likely why the trough was subtherapeutic at 1st draw. Will plan increasing dose and frequency and starting ~6hrs from last administered dose rather than waiting a full 8 hours given the trough result. Will redraw a trough to assess dosing prior to the 4th dose of new regimen. PLAN/RECOMMENDATIONS 1. Start vancomycin 1000mg IV Q8hr 01/18/19 @1800 2. Trough scheduled for 01/14/19 @1730 3. Pharmacy Service will continue to monitor and adjust dosing as required.
[2019-01-13 17:31] LABS: Bedside Glucose 128 mg/dL (70-110)
[2019-01-13] MEDS: Vancomycin IV 1,000 MG/200 ML BAG 200 MG IV (18:24)
[2019-01-13] MEDS: Insulin Lispro 100 UNIT/ML INSULN.PEN SC (23:03)
--- NOTE | 2019-01-13 23:10 | NURSING ---
pt experienced episode of emesis while on ventilator. Oral suction performed, OG hooked to suction, respiratory at bedside managing ETT. Dr. Levy notified. Holding tube feed.
[2019-01-14] VITALS (54 sets, daily range): BP systolic 89–131; BP diastolic 47–88; PULSE 88–119; RESP 22–35; TEMP 37.7–38.5; O2SAT 92–100
[2019-01-14 00:16] LABS: Bedside Glucose 158 mg/dL (70-110)
[2019-01-14] MEDS: fentaNYL drip 100 ML 2.5 MCG IV ×4 (00:42→22:13)
[2019-01-14] MEDS: Propofol 10MG/Ml 1,000 MG/100 ML Bottle 5.16 MG CONT INF ×5 (02:44→20:13)
[2019-01-14] MEDS: Ipratropium/Albuterol Sulfate 3 ML AMPUL.NEB INHALATION ×5 (03:38→23:10)
[2019-01-14] MEDS: Vancomycin IV 1,000 MG/200 ML BAG 200 MG IV ×3 (04:00→18:25)
[2019-01-14 05:05] LABS: Hematocrit 35.4 % (37-47); Hemoglobin 11.7 g/dl (12.0-15.0); Mean Corp Hgb Conc 33.1 g/gl (32-36); Mean Corpuscular Volume 87.8 fL (81-99); Mean Platelet Vol. 10.8 fl (6.2-12.0); Platelet Count 341 K/mm3 (150-450); RBC Distribution Width CV 14.2 % (11.6-14.6); RBC Distribution Width SD 44.4 fl (35.1-43.9); Red Blood Count 4.03 M/mm3 (4.2-5.4); White Blood Count 23.4 K/mm3 (4.4-11.0)
[2019-01-14 05:15] LABS: Scan Indicated on CBC? Y/N YES- FLAGS NOTED
[2019-01-14 05:18] LABS: Anion Gap 9 (5-15); BUN 9 mg/dL (7-18); BUN/Creat Ratio 15.5 RATIO (10-20); Calcium,Total 7.5 mg/dL (8.5-10.1); Chloride 111 mmol/L (98-107); Creatinine, Serum 0.58 mg/dL (0.55-1.02); EST Glomerular Filtration Rate 125 mL/min (>60); Est Glom Filt Rate - Afr Amer 152 mL/min (>60); Estimated Creatinine Clearance 118.02 ml/min; Glucose 165 mg/dL (74-106); Magnesium 2.2 mg/dL (1.6-2.6); Potassium 3.4 mmol/L (3.5-5.1); Sodium Level 144 mmol/L (136-145)
[2019-01-14] MEDS: Acetaminophen 650 MG/20 ML UDC GT ×4 (05:56→23:45)
[2019-01-14] MEDS: Insulin Lispro 100 UNIT/ML INSULN.PEN SC ×2 (05:57→11:35)
[2019-01-14] MEDS: Enoxaparin 40 MG/0.4 ML Syringe SC (05:57)
[2019-01-14 06:16] LABS: Bedside Glucose 153 mg/dL (70-110)
--- NOTE | 2019-01-14 06:43 | PCM.PN.INT ---
Subjective: The patient was seen and examined at the bedside this morning. Events from the last 24 hours have been reviewed. The patient has remained febrile most of the night. In addition, she did have to be started on Levophed last evening due to hemodynamic instability. The patient was also transferred from [facility] to [facility] due to ventilator dyssynchrony. Her Levophed is currently infusing at 10 mcg. She was noted by nursing staff to have an episode of emesis last evening. Tube feeds were subsequently placed on hold. The patient is currently documented to be overall net +6.6 L for the admission. The patient's white blood cell count has increased to 23,000 this morning. Potassium is low at 3.4. Phosphorus is also low at 2.0. FiO2 is down to 65%. Objective: The patient's most recent lab work, culture data and imaging studies have all been personally reviewed. Surface echocardiogram revealed evidence of stage I diastolic dysfunction with an ejection fraction of 65%. Right ventricular systolic pressure was estimated to be 53 mmHg. Liver ultrasound revealed mild hepatomegaly along with a trace amount of pericholecystic fluid and sludge within the gallbladder lumen. Respiratory viral panel was positive for influenza A. Strep and urine Legionella antigens were both negative. Blood and sputum cultures are pending. General: - - Remains intubated, sedated and mechanically ventilated. HEENT: Atraumatic, PERRLA, Normocephalic Oral: No Gingival or Mucosal Lesions/ Ulcerations, - - Endotracheal and OG tubes remain in place Neck: Supple, No Nodes, Trachea Midline Lungs: No wheeze, No rales, Diminished, Rhonchi Cardiovascular: Normal S1, Normal S2, Murmur, Tachycardic Abdomen: Bowel Sounds Present, Soft, Non Tender Extremities: No clubbing, No cyanosis, Edema Skin: No breakdown, - - Multiple tattoos present Musculoskeletal: No Tenderness to Palpation of Joints or Extremities Lymphatic: No Cervical, Supraclavicular, or Inguinal Adenopathy Neurological: - - No focal neurological deficits. Currently sedated with a RASS of -2 Psych/Mental Status: Restless Vital Signs Temp Pulse Resp BP Pulse Ox 37.9 C H 94 27 H 111/73 93 01/14/19 04:00 01/14/19 06:00 01/14/19 06:00 01/14/19 06:00 01/14/19 06:00 Oxygen Delivery Method Mechanical Ventilator Weight: 202 lb 2.622 oz Body Mass Index (BMI) 32.7 Intake and Output for Last 24 Hours 01/12/19 01/13/19 01/14/19 23:59 23:59 23:59 Intake Total 4766 / 4766 4497 / 4497 1058 / 1058 Output Total 1325 / 1325 850 / 850 950 / 950 Balance 3441 / 3441 3647 / 3647 108 / 108 Labs (Last 48 Hours) 01/12/19 01/12/19 01/12/19 07:40 07:45 09:05 WBC RBC Hgb Hct MCV MCH MCHC RDW RDW Differential Plt Count MPV Immature Gran % (Auto) Neut % (Auto) Lymph % (Auto) Stevens % (Auto) Eos % (Auto) Baso % (Auto) Absolute Neuts (auto) Absolute Lymphs (auto) Total Counted PT 15.6 H INR 1.3 Specimen Type ART Sample Site R Radial pH 7.36 Bicarbonate Actual 15.8 L POC Total CO2 17 Base Excess -10 L O2 Saturation 96 O2 % 60 ABG pCO2 27.9 L ABG pO2 83 Respiration Rate 16 O2 Delivery Device Vent Vent Mode A-C Tidal Volume 450 POC PEEP 10 Blood Gas Notified Whom ICU MD Blood Gas Notified Time 730 Sodium Potassium Chloride Carbon Dioxide Anion Gap BUN Creatinine Estim Creat Clear Calc Est GFR (MDRD) Af Amer Est GFR (MDRD) Non-Af BUN/Creatinine Ratio Glucose Hemoglobin A1c Calcium Phosphorus Magnesium Total Bilirubin AST ALT Alkaline Phosphatase Total Creatine Kinase Troponin I Total Protein Albumin Globulin Albumin/Globulin Ratio Triglycerides Cholesterol LDL Cholesterol VLDL Cholesterol HDL Cholesterol Vancomycin Trough Hepatitis A IgM Ab Hepatitis A Ab Total Hep Bs Antigen Hep B Core Total Ab Hep B Core IgM Ab MRSA (PCR) POSITIVE H POC Glucose 01/12/19 01/12/19 01/12/19 11:50 11:50 11:50 WBC 24.0 H RBC 4.19 L Hgb 12.1 Hct 36.4 L MCV 86.9 MCH 28.9 MCHC 33.2 RDW 13.6 RDW Differential 43.2 Plt Count 356 MPV 11.4 Immature Gran % (Auto) 0.400 Neut % (Auto) 75.4 H Lymph % (Auto) 18.5 L Stevens % (Auto) 5.4 Eos % (Auto) 0.1 Baso % (Auto) 0.2 Absolute Neuts (auto) 18.1 H Absolute Lymphs (auto) 4.43 Total Counted Not Reportable PT INR Specimen Type Sample Site pH Bicarbonate Actual POC Total CO2 Base Excess O2 Saturation O2 % ABG pCO2 ABG pO2 Respiration Rate O2 Delivery Device Vent Mode Tidal Volume POC PEEP Blood Gas Notified Whom Blood Gas Notified Time Sodium 145 Potassium 3.4 L Chloride 115 H Carbon Dioxide 19.0 L Anion Gap 11 BUN 23 H Creatinine 0.77 Estim Creat Clear Calc 88.90 Est GFR (MDRD) Af Amer 110 Est GFR (MDRD) Non-Af 91 BUN/Creatinine Ratio 29.9 H Glucose 102 Hemoglobin A1c Calcium 7.5 L Phosphorus Magnesium Total Bilirubin 0.50 AST 201 H ALT 78 H Alkaline Phosphatase 73 Total Creatine Kinase 4297 H Troponin I Total Protein 6.1 L Albumin 2.2 L Globulin 3.9 Albumin/Globulin Ratio 0.6 L Triglycerides 196 Cholesterol 53 LDL Cholesterol 3 VLDL Cholesterol 39 HDL Cholesterol 11 L Vancomycin Trough Hepatitis A IgM Ab Pending Hepatitis A Ab Total Pending Hep Bs Antigen Pending Hep B Core Total Ab Pending Hep B Core IgM Ab Pending MRSA (PCR) POC Glucose 01/12/19 01/12/19 01/12/19 11:50 14:55 17:45 WBC RBC Hgb Hct MCV MCH MCHC RDW RDW Differential Plt Count MPV Immature Gran % (Auto) Neut % (Auto) Lymph % (Auto) Stevens % (Auto) Eos % (Auto) Baso % (Auto) Absolute Neuts (auto) Absolute Lymphs (auto) Total Counted PT INR Specimen Type Sample Site pH Bicarbonate Actual POC Total CO2 Base Excess O2 Saturation O2 % ABG pCO2 ABG pO2 Respiration Rate O2 Delivery Device Vent Mode Tidal Volume POC PEEP Blood Gas Notified Whom Blood Gas Notified Time Sodium Potassium Chloride Carbon Dioxide Anion Gap BUN Creatinine Estim Creat Clear Calc Est GFR (MDRD) Af Amer Est GFR (MDRD) Non-Af BUN/Creatinine Ratio Glucose Hemoglobin A1c Calcium Phosphorus Magnesium Total Bilirubin AST ALT Alkaline Phosphatase Total Creatine Kinase Troponin I 0.361 H 0.303 H 0.304 H Total Protein Albumin Globulin Albumin/Globulin Ratio Triglycerides Cholesterol LDL Cholesterol VLDL Cholesterol HDL Cholesterol Vancomycin Trough Hepatitis A IgM Ab Hepatitis A Ab Total Hep Bs Antigen Hep B Core Total Ab Hep B Core IgM Ab MRSA (PCR) POC Glucose 01/13/19 01/13/1919 04:10 04:10 04:10 WBC 18.9 H RBC 3.95 L Hgb 11.5 L Hct 34.4 L MCV 87.1 MCH 29.1 MCHC 33.4 RDW 13.6 RDW Differential 42.2 Plt Count 341 MPV 11.3 Immature Gran % (Auto) Neut % (Auto) Lymph % (Auto) Stevens % (Auto) Eos % (Auto) Baso % (Auto) Absolute Neuts (auto) Absolute Lymphs (auto) Total Counted PT INR Specimen Type Sample Site pH Bicarbonate Actual POC Total CO2 Base Excess O2 Saturation O2 % ABG pCO2 ABG pO2 Respiration Rate O2 Delivery Device Vent Mode Tidal Volume POC PEEP Blood Gas Notified Whom Blood Gas Notified Time Sodium 145 Potassium 3.5 Chloride 115 H Carbon Dioxide 23.0 Anion Gap 7 BUN 15 Creatinine 0.67 Estim Creat Clear Calc 102.17 Est GFR (MDRD) Af Amer 129 Est GFR (MDRD) Non-Af 107 BUN/Creatinine Ratio 22.5 H Glucose 150 H Hemoglobin A1c 5.6 Calcium 7.5 L Phosphorus 1.5 L Magnesium 2.3 Total Bilirubin 0.30 AST 124 H ALT 65 H Alkaline Phosphatase 74 Total Creatine Kinase 1503 H Troponin I Total Protein 5.9 L Albumin 2.0 L Globulin 3.9 Albumin/Globulin Ratio 0.5 L Triglycerides Cholesterol LDL Cholesterol VLDL Cholesterol HDL Cholesterol Vancomycin Trough Hepatitis A IgM Ab Hepatitis A Ab Total Hep Bs Antigen Hep B Core Total Ab Hep B Core IgM Ab MRSA (PCR) POC Glucose 01/13/19 01/13/19 01/13/19 12:00 12:08 17:07 WBC RBC Hgb Hct MCV MCH MCHC RDW RDW Differential Plt Count MPV Immature Gran % (Auto) Neut % (Auto) Lymph % (Auto) Stevens % (Auto) Eos % (Auto) Baso % (Auto) Absolute Neuts (auto) Absolute Lymphs (auto) Total Counted PT INR Specimen Type Sample Site pH Bicarbonate Actual POC Total CO2 Base Excess O2 Saturation O2 % ABG pCO2 ABG pO2 Respiration Rate O2 Delivery Device Vent Mode Tidal Volume POC PEEP Blood Gas Notified Whom Blood Gas Notified Time Sodium Potassium Chloride Carbon Dioxide Anion Gap BUN Creatinine Estim Creat Clear Calc Est GFR (MDRD) Af Amer Est GFR (MDRD) Non-Af BUN/Creatinine Ratio Glucose Hemoglobin A1c Calcium Phosphorus Magnesium Total Bilirubin AST ALT Alkaline Phosphatase Total Creatine Kinase Troponin I Total Protein Albumin Globulin Albumin/Globulin Ratio Triglycerides Cholesterol LDL Cholesterol VLDL Cholesterol HDL Cholesterol Vancomycin Trough 5.5 Hepatitis A IgM Ab Hepatitis A Ab Total Hep Bs Antigen Hep B Core Total Ab Hep B Core IgM Ab MRSA (PCR) POC Glucose 146 H 128 H 01/13/19 01/14/19 01/14/19 23:00 04:55 04:55 WBC 23.4 H RBC 4.03 L Hgb 11.7 L Hct 35.4 L MCV 87.8 MCH 29.0 MCHC 33.1 RDW 14.2 RDW Differential 44.4 H Plt Count 341 MPV 10.8 Immature Gran % (Auto) Neut % (Auto) Lymph % (Auto) Stevens % (Auto) Eos % (Auto) Baso % (Auto) Absolute Neuts (auto) Absolute Lymphs (auto) Total Counted PT INR Specimen Type Sample Site pH Bicarbonate Actual POC Total CO2 Base Excess O2 Saturation O2 % ABG pCO2 ABG pO2 Respiration Rate O2 Delivery Device Vent Mode Tidal Volume POC PEEP Blood Gas Notified Whom Blood Gas Notified Time Sodium 144 Potassium 3.4 L Chloride 111 H Carbon Dioxide 24.0 Anion Gap 9 BUN 9 Creatinine 0.58 Estim Creat Clear Calc 118.02 Est GFR (MDRD) Af Amer 152 Est GFR (MDRD) Non-Af 125 BUN/Creatinine Ratio 15.5 Glucose 165 H Hemoglobin A1c Calcium 7.5 L Phosphorus 2.0 L Magnesium 2.2 Total Bilirubin AST ALT Alkaline Phosphatase Total Creatine Kinase Troponin I Total Protein Albumin Globulin Albumin/Globulin Ratio Triglycerides Cholesterol LDL Cholesterol VLDL Cholesterol HDL Cholesterol Vancomycin Trough Hepatitis A IgM Ab Hepatitis A Ab Total Hep Bs Antigen Hep B Core Total Ab Hep B Core IgM Ab MRSA (PCR) POC Glucose 158 H 01/14/19 05:51 WBC RBC Hgb Hct MCV MCH MCHC RDW RDW Differential Plt Count MPV Immature Gran % (Auto) Neut % (Auto) Lymph % (Auto) Stevens % (Auto) Eos % (Auto) Baso % (Auto) Absolute Neuts (auto) Absolute Lymphs (auto) Total Counted PT INR Specimen Type Sample Site pH Bicarbonate Actual POC Total CO2 Base Excess O2 Saturation O2 % ABG pCO2 ABG pO2 Respiration Rate O2 Delivery Device Vent Mode Tidal Volume POC PEEP Blood Gas Notified Whom Blood Gas Notified Time Sodium Potassium Chloride Carbon Dioxide Anion Gap BUN Creatinine Estim Creat Clear Calc Est GFR (MDRD) Af Amer Est GFR (MDRD) Non-Af BUN/Creatinine Ratio Glucose Hemoglobin A1c Calcium Phosphorus Magnesium Total Bilirubin AST ALT Alkaline Phosphatase Total Creatine Kinase Troponin I Total Protein Albumin Globulin Albumin/Globulin Ratio Triglycerides Cholesterol LDL Cholesterol VLDL Cholesterol HDL Cholesterol Vancomycin Trough Hepatitis A IgM Ab Hepatitis A Ab Total Hep Bs Antigen Hep B Core Total Ab Hep B Core IgM Ab MRSA (PCR) POC Glucose 153 H Microbiology 01/12/19 04:15 Sputum, Induced/[place] Gram Stain - Final 01/12/19 04:15 Sputum, Induced/[place] Respiratory Culture - Preliminary Staphylococcus aureus 01/12/19 07:40 Mucosa - Nasopharyngeal Respiratory Panel (PCR) - Final Influenza A (Subtype H3) Clinical Impression(s) from Imaging Studies Chest X-Ray 01/11/19 20:08 IMPRESSION: Endotracheal and nasogastric tubes appearing in adequate position. Bilateral pulmonary infiltrates left side more severely affected than right. Electronically Signed: Keegan Munoz MD at 21:57 EDT , Service support , Liver Ultrasound 01/12/19 05:55 IMPRESSION: Mild hepatomegaly. Trace amount of pericholecystic fluid and sludge within the gallbladder lumen. Electronically Signed: Ever See, at 16:11 EDT , Service support , Chest X-Ray 01/13/19 07:54 IMPRESSION: Lines and tubes as described. Bilateral infiltrates, increasing in the right lung base since previous study. Electronically Signed: Michael Hernandez MD at 17:20 EDT , Service support , Medical Necessity - Tobacco Use Smoking Status: Current every day smoker - Unclear pack per day history. Tobacco Use: Cigarettes Assessment/Plan All Active Problems (Last Reviewed 12/13/18 @ 15:11 by Sangeeta Bailey) Acute respiratory failure with hypoxia (Acute) Pneumonia (Acute) Sepsis (Acute) Cardiac enzymes elevated (Acute) Dental abscess (Acute) Upper respiratory infection (Acute) RECOMMENDATIONS: 1. Continue to wean FiO2 to maintain an oxygen saturation at or above 90%. 2. Continue Levophed to maintain a mean arterial pressure at or above 65 mmHg. 3. Resume tube feeds this morning. 4. Potassium and phosphorus repletion as ordered. 5. Continue bronchodilators. 6. Continue fentanyl and propofol for sedation. 7. Continue appropriate ICU prophylaxis IMPRESSIONS: 1. Acute hypoxemic respiratory failure The patient was intubated in the emergency department due to refractory agitation and hypoxemia secondary to aspiration versus community-acquired pneumonia. The patient was subsequently found to be positive for influenza A, along with a superimposed MRSA bacterial pneumonia. She remains on broad-spectrum antimicrobials and Tamiflu. We will plan to continue to wean FiO2 to maintain an oxygen saturation at or above 90%. Continue scheduled bronchodilators. Okay to resume tube feeds this morning. 2. Septic shock secondary to influenza A with superimposed bacterial pneumonia The patient is currently requiring levophed to maintain hemodynamic stability. She remains febrile, despite being on broad-spectrum antimicrobials. Tamiflu will be continued. Plan to wean vasopressor support in an attempt to maintain a mean arterial pressure at or above 65 mmHg. Infectious diseases consultation is currently pending. 3. Toxic/metabolic encephalopathy Likely multifactorial in etiology with drug intoxication/overdose and pulmonary infectious process contributing. Continue current supportive measures with invasive mechanical ventilatory support. Continue propofol and fentanyl for sedation with a goal to maintain a RASS of -1 to 1. 4. Personal history of endocarditis/heart failure with preserved ejection fraction/tricuspid valve insufficiency/pulmonary hypertension Continue current supportive measures as noted above. The patient may require eventual initiation of diuretic therapy. 5. Hypokalemia/hypophosphatemia Aggressive electrolyte repletion as ordered. Recheck levels in the morning. 6. History of polysubstance abuse/tobacco dependency/reported baseline asthma/bipolar disorder/GERD Complicates care, management, recovery and prognosis. Nicotine replacement therapy can be utilized while the patient is admitted to the hospital. Continue PPI therapy. TIME: 40 minutes of critical care time, independent of procedures, was spent addressing the patient's acute hypoxemic respiratory failure, severe sepsis, community-acquired versus aspiration pneumonia, influenza A infection, toxic/metabolic encephalopathy, review of all data and collaboration with the care team. ([id number]) Code Visit [id number]: [id number] Critical care first hour
--- NOTE | 2019-01-14 06:47 | PN_ITS ---
Subjective: The patient was seen and examined at the bedside this morning. Events from the last 24 hours have been reviewed. The patient has remained febrile most of the night. In addition, she did have to be started on Levophed last evening due to hemodynamic instability. The patient was also transferred from [facility] to [facility] due to ventilator dyssynchrony. Her Levophed is currently infusing at 10 mcg. She was noted by nursing staff to have an episode of emesis last evening. Tube feeds were subsequently placed on hold. The patient is currently documented to be overall net +6.6 L for the admission. The patient's white blood cell count has increased to 23,000 this morning. Potassium is low at 3.4. Phosphorus is also low at 2.0. FiO2 is down to 65%. Objective: The patient's most recent lab work, culture data and imaging studies have all been personally reviewed. Surface echocardiogram revealed evidence of stage I diastolic dysfunction with an ejection fraction of 65%. Right ventricular systolic pressure was estimated to be 53 mmHg. Liver ultrasound revealed mild hepatomegaly along with a trace amount of pericholecystic fluid and sludge within the gallbladder lumen. Respiratory viral panel was positive for influenza A. Strep and urine Legionella antigens were both negative. Blood and sputum cultures are pending. General: - - Remains intubated, sedated and mechanically ventilated. HEENT: Atraumatic, PERRLA, Normocephalic Oral: No Gingival or Mucosal Lesions/ Ulcerations, - - Endotracheal and OG tubes remain in place Neck: Supple, No Nodes, Trachea Midline Lungs: No wheeze, No rales, Diminished, Rhonchi Cardiovascular: Normal S1, Normal S2, Murmur, Tachycardic Abdomen: Bowel Sounds Present, Soft, Non Tender Extremities: No clubbing, No cyanosis, Edema Skin: No breakdown, - - Multiple tattoos present Musculoskeletal: No Tenderness to Palpation of Joints or Extremities Lymphatic: No Cervical, Supraclavicular, or Inguinal Adenopathy Neurological: - - No focal neurological deficits. Currently sedated with a RASS of -2 Psych/Mental Status: Restless Vital Signs Temp Pulse Resp BP Pulse Ox 37.9 C H 94 27 H 111/73 93 01/14/19 04:00 01/14/19 06:00 01/14/19 06:00 01/14/19 06:00 01/14/19 06:00 Oxygen Delivery Method Mechanical Ventilator Weight: 202 lb 2.622 oz Body Mass Index (BMI) 32.7 Intake and Output for Last 24 Hours 01/12/19 01/13/19 01/14/19 23:59 23:59 23:59 Intake Total 4766 / 4766 4497 / 4497 1058 / 1058 Output Total 1325 / 1325 850 / 850 950 / 950 Balance 3441 / 3441 3647 / 3647 108 / 108 Labs (Last 48 Hours) 01/12/19 01/12/19 01/12/19 07:40 07:45 09:05 WBC RBC Hgb Hct MCV MCH MCHC RDW RDW Differential Plt Count MPV Immature Gran % (Auto) Neut % (Auto) Lymph % (Auto) Beaver % (Auto) Eos % (Auto) Baso % (Auto) Absolute Neuts (auto) Absolute Lymphs (auto) Total Counted PT 15.6 H INR 1.3 Specimen Type ART Sample Site R Radial pH 7.36 Bicarbonate Actual 15.8 L POC Total CO2 17 Base Excess -10 L O2 Saturation 96 O2 % 60 ABG pCO2 27.9 L ABG pO2 83 Respiration Rate 16 O2 Delivery Device Vent Vent Mode A-C Tidal Volume 450 POC PEEP 10 Blood Gas Notified Whom ICU MD Blood Gas Notified Time 730 Sodium Potassium Chloride Carbon Dioxide Anion Gap BUN Creatinine Estim Creat Clear Calc Est GFR (MDRD) Af Amer Est GFR (MDRD) Non-Af BUN/Creatinine Ratio Glucose Hemoglobin A1c Calcium Phosphorus Magnesium Total Bilirubin AST ALT Alkaline Phosphatase Total Creatine Kinase Troponin I Total Protein Albumin Globulin Albumin/Globulin Ratio Triglycerides Cholesterol LDL Cholesterol VLDL Cholesterol HDL Cholesterol Vancomycin Trough Hepatitis A IgM Ab Hepatitis A Ab Total Hep Bs Antigen Hep B Core Total Ab Hep B Core IgM Ab MRSA (PCR) POSITIVE H POC Glucose 01/12/19 01/12/19 01/12/19 11:50 11:50 11:50 WBC 24.0 H RBC 4.19 L Hgb 12.1 Hct 36.4 L MCV 86.9 MCH 28.9 MCHC 33.2 RDW 13.6 RDW Differential 43.2 Plt Count 356 MPV 11.4 Immature Gran % (Auto) 0.400 Neut % (Auto) 75.4 H Lymph % (Auto) 18.5 L Beaver % (Auto) 5.4 Eos % (Auto) 0.1 Baso % (Auto) 0.2 Absolute Neuts (auto) 18.1 H Absolute Lymphs (auto) 4.43 Total Counted Not Reportable PT INR Specimen Type Sample Site pH Bicarbonate Actual POC Total CO2 Base Excess O2 Saturation O2 % ABG pCO2 ABG pO2 Respiration Rate O2 Delivery Device Vent Mode Tidal Volume POC PEEP Blood Gas Notified Whom Blood Gas Notified Time Sodium 145 Potassium 3.4 L Chloride 115 H Carbon Dioxide 19.0 L Anion Gap 11 BUN 23 H Creatinine 0.77 Estim Creat Clear Calc 88.90 Est GFR (MDRD) Af Amer 110 Est GFR (MDRD) Non-Af 91 BUN/Creatinine Ratio 29.9 H Glucose 102 Hemoglobin A1c Calcium 7.5 L Phosphorus Magnesium Total Bilirubin 0.50 AST 201 H ALT 78 H Alkaline Phosphatase 73 Total Creatine Kinase 4297 H Troponin I Total Protein 6.1 L Albumin 2.2 L Globulin 3.9 Albumin/Globulin Ratio 0.6 L Triglycerides 196 Cholesterol 53 LDL Cholesterol 3 VLDL Cholesterol 39 HDL Cholesterol 11 L Vancomycin Trough Hepatitis A IgM Ab Pending Hepatitis A Ab Total Pending Hep Bs Antigen Pending Hep B Core Total Ab Pending Hep B Core IgM Ab Pending MRSA (PCR) POC Glucose 01/12/19 01/12/19 01/12/19 11:50 14:55 17:45 WBC RBC Hgb Hct MCV MCH MCHC RDW RDW Differential Plt Count MPV Immature Gran % (Auto) Neut % (Auto) Lymph % (Auto) Beaver % (Auto) Eos % (Auto) Baso % (Auto) Absolute Neuts (auto) Absolute Lymphs (auto) Total Counted PT INR Specimen Type Sample Site pH Bicarbonate Actual POC Total CO2 Base Excess O2 Saturation O2 % ABG pCO2 ABG pO2 Respiration Rate O2 Delivery Device Vent Mode Tidal Volume POC PEEP Blood Gas Notified Whom Blood Gas Notified Time Sodium Potassium Chloride Carbon Dioxide Anion Gap BUN Creatinine Estim Creat Clear Calc Est GFR (MDRD) Af Amer Est GFR (MDRD) Non-Af BUN/Creatinine Ratio Glucose Hemoglobin A1c Calcium Phosphorus Magnesium Total Bilirubin AST ALT Alkaline Phosphatase Total Creatine Kinase Troponin I 0.361 H 0.303 H 0.304 H Total Protein Albumin Globulin Albumin/Globulin Ratio Triglycerides Cholesterol LDL Cholesterol VLDL Cholesterol HDL Cholesterol Vancomycin Trough Hepatitis A IgM Ab Hepatitis A Ab Total Hep Bs Antigen Hep B Core Total Ab Hep B Core IgM Ab MRSA (PCR) POC Glucose 01/13/19 01/13/1919 04:10 04:10 04:10 WBC 18.9 H RBC 3.95 L Hgb 11.5 L Hct 34.4 L MCV 87.1 MCH 29.1 MCHC 33.4 RDW 13.6 RDW Differential 42.2 Plt Count 341 MPV 11.3 Immature Gran % (Auto) Neut % (Auto) Lymph % (Auto) Beaver % (Auto) Eos % (Auto) Baso % (Auto) Absolute Neuts (auto) Absolute Lymphs (auto) Total Counted PT INR Specimen Type Sample Site pH Bicarbonate Actual POC Total CO2 Base Excess O2 Saturation O2 % ABG pCO2 ABG pO2 Respiration Rate O2 Delivery Device Vent Mode Tidal Volume POC PEEP Blood Gas Notified Whom Blood Gas Notified Time Sodium 145 Potassium 3.5 Chloride 115 H Carbon Dioxide 23.0 Anion Gap 7 BUN 15 Creatinine 0.67 Estim Creat Clear Calc 102.17 Est GFR (MDRD) Af Amer 129 Est GFR (MDRD) Non-Af 107 BUN/Creatinine Ratio 22.5 H Glucose 150 H Hemoglobin A1c 5.6 Calcium 7.5 L Phosphorus 1.5 L Magnesium 2.3 Total Bilirubin 0.30 AST 124 H ALT 65 H Alkaline Phosphatase 74 Total Creatine Kinase 1503 H Troponin I Total Protein 5.9 L Albumin 2.0 L Globulin 3.9 Albumin/Globulin Ratio 0.5 L Triglycerides Cholesterol LDL Cholesterol VLDL Cholesterol HDL Cholesterol Vancomycin Trough Hepatitis A IgM Ab Hepatitis A Ab Total Hep Bs Antigen Hep B Core Total Ab Hep B Core IgM Ab MRSA (PCR) POC Glucose 01/13/19 01/13/19 01/13/19 12:00 12:08 17:07 WBC RBC Hgb Hct MCV MCH MCHC RDW RDW Differential Plt Count MPV Immature Gran % (Auto) Neut % (Auto) Lymph % (Auto) Beaver % (Auto) Eos % (Auto) Baso % (Auto) Absolute Neuts (auto) Absolute Lymphs (auto) Total Counted PT INR Specimen Type Sample Site pH Bicarbonate Actual POC Total CO2 Base Excess O2 Saturation O2 % ABG pCO2 ABG pO2 Respiration Rate O2 Delivery Device Vent Mode Tidal Volume POC PEEP Blood Gas Notified Whom Blood Gas Notified Time Sodium Potassium Chloride Carbon Dioxide Anion Gap BUN Creatinine Estim Creat Clear Calc Est GFR (MDRD) Af Amer Est GFR (MDRD) Non-Af BUN/Creatinine Ratio Glucose Hemoglobin A1c Calcium Phosphorus Magnesium Total Bilirubin AST ALT Alkaline Phosphatase Total Creatine Kinase Troponin I Total Protein Albumin Globulin Albumin/Globulin Ratio Triglycerides Cholesterol LDL Cholesterol VLDL Cholesterol HDL Cholesterol Vancomycin Trough 5.5 Hepatitis A IgM Ab Hepatitis A Ab Total Hep Bs Antigen Hep B Core Total Ab Hep B Core IgM Ab MRSA (PCR) POC Glucose 146 H 128 H 01/13/19 01/14/19 01/14/19 23:00 04:55 04:55 WBC 23.4 H RBC 4.03 L Hgb 11.7 L Hct 35.4 L MCV 87.8 MCH 29.0 MCHC 33.1 RDW 14.2 RDW Differential 44.4 H Plt Count 341 MPV 10.8 Immature Gran % (Auto) Neut % (Auto) Lymph % (Auto) Beaver % (Auto) Eos % (Auto) Baso % (Auto) Absolute Neuts (auto) Absolute Lymphs (auto) Total Counted PT INR Specimen Type Sample Site pH Bicarbonate Actual POC Total CO2 Base Excess O2 Saturation O2 % ABG pCO2 ABG pO2 Respiration Rate O2 Delivery Device Vent Mode Tidal Volume POC PEEP Blood Gas Notified Whom Blood Gas Notified Time Sodium 144 Potassium 3.4 L Chloride 111 H Carbon Dioxide 24.0 Anion Gap 9 BUN 9 Creatinine 0.58 Estim Creat Clear Calc 118.02 Est GFR (MDRD) Af Amer 152 Est GFR (MDRD) Non-Af 125 BUN/Creatinine Ratio 15.5 Glucose 165 H Hemoglobin A1c Calcium 7.5 L Phosphorus 2.0 L Magnesium 2.2 Total Bilirubin AST ALT Alkaline Phosphatase Total Creatine Kinase Troponin I Total Protein Albumin Globulin Albumin/Globulin Ratio Triglycerides Cholesterol LDL Cholesterol VLDL Cholesterol HDL Cholesterol Vancomycin Trough Hepatitis A IgM Ab Hepatitis A Ab Total Hep Bs Antigen Hep B Core Total Ab Hep B Core IgM Ab MRSA (PCR) POC Glucose 158 H 01/14/19 05:51 WBC RBC Hgb Hct MCV MCH MCHC RDW RDW Differential Plt Count MPV Immature Gran % (Auto) Neut % (Auto) Lymph % (Auto) Beaver % (Auto) Eos % (Auto) Baso % (Auto) Absolute Neuts (auto) Absolute Lymphs (auto) Total Counted PT INR Specimen Type Sample Site pH Bicarbonate Actual POC Total CO2 Base Excess O2 Saturation O2 % ABG pCO2 ABG pO2 Respiration Rate O2 Delivery Device Vent Mode Tidal Volume POC PEEP Blood Gas Notified Whom Blood Gas Notified Time Sodium Potassium Chloride Carbon Dioxide Anion Gap BUN Creatinine Estim Creat Clear Calc Est GFR (MDRD) Af Amer Est GFR (MDRD) Non-Af BUN/Creatinine Ratio Glucose Hemoglobin A1c Calcium Phosphorus Magnesium Total Bilirubin AST ALT Alkaline Phosphatase Total Creatine Kinase Troponin I Total Protein Albumin Globulin Albumin/Globulin Ratio Triglycerides Cholesterol LDL Cholesterol VLDL Cholesterol HDL Cholesterol Vancomycin Trough Hepatitis A IgM Ab Hepatitis A Ab Total Hep Bs Antigen Hep B Core Total Ab Hep B Core IgM Ab MRSA (PCR) POC Glucose 153 H Microbiology 01/12/19 04:15 Sputum, Induced/Lukens Gram Stain - Final 01/12/19 04:15 Sputum, Induced/Lukens Respiratory Culture - Preliminary Staphylococcus aureus 01/12/19 07:40 Mucosa - Nasopharyngeal Respiratory Panel (PCR) - Final Influenza A (Subtype H3) Clinical Impression(s) from Imaging Studies Chest X-Ray 01/11/19 20:08 IMPRESSION: Endotracheal and nasogastric tubes appearing in adequate position. Bilateral pulmonary infiltrates left side more severely affected than right. Electronically Signed: Keegan Munoz MD at 21:57 EDT , Service support , Liver Ultrasound 01/12/19 05:55 IMPRESSION: Mild hepatomegaly. Trace amount of pericholecystic fluid and sludge within the gallbladder lumen. Electronically Signed: Ever See, at 16:11 EDT , Service support , Chest X-Ray 01/13/19 07:54 IMPRESSION: Lines and tubes as described. Bilateral infiltrates, increasing in the right lung base since previous study. Electronically Signed: Michael Hernandez MD at 17:20 EDT , Service support , Medical Necessity - Tobacco Use Smoking Status: Current every day smoker - Unclear pack per day history. Tobacco Use: Cigarettes Assessment/Plan All Active Problems (Last Reviewed 12/13/18 @ 15:11 by Sangeeta Bailey) Acute respiratory failure with hypoxia (Acute) Pneumonia (Acute) Sepsis (Acute) Cardiac enzymes elevated (Acute) Dental abscess (Acute) Upper respiratory infection (Acute) RECOMMENDATIONS: 1. Continue to wean FiO2 to maintain an oxygen saturation at or above 90%. 2. Continue Levophed to maintain a mean arterial pressure at or above 65 mmHg. 3. Resume tube feeds this morning. 4. Potassium and phosphorus repletion as ordered. 5. Continue bronchodilators. 6. Continue fentanyl and propofol for sedation. 7. Continue appropriate ICU prophylaxis IMPRESSIONS: 1. Acute hypoxemic respiratory failure The patient was intubated in the emergency department due to refractory agitation and hypoxemia secondary to aspiration versus community-acquired pneumonia. The patient was subsequently found to be positive for influenza A, along with a superimposed MRSA bacterial pneumonia. She remains on broad- spectrum antimicrobials and Tamiflu. We will plan to continue to wean FiO2 to maintain an oxygen saturation at or above 90%. Continue scheduled bronchodilators. Okay to resume tube feeds this morning. 2. Septic shock secondary to influenza A with superimposed bacterial pneumonia The patient is currently requiring levophed to maintain hemodynamic stability. She remains febrile, despite being on broad-spectrum antimicrobials. Tamiflu will be continued. Plan to wean vasopressor support in an attempt to maintain a mean arterial pressure at or above 65 mmHg. Infectious diseases consultation is currently pending. 3. Toxic/metabolic encephalopathy Likely multifactorial in etiology with drug intoxication/overdose and pulmonary infectious process contributing. Continue current supportive measures with invasive mechanical ventilatory support. Continue propofol and fentanyl for sedation with a goal to maintain a RASS of -1 to 1. 4. Personal history of endocarditis/heart failure with preserved ejection fraction/tricuspid valve insufficiency/pulmonary hypertension Continue current supportive measures as noted above. The patient may require eventual initiation of diuretic therapy. 5. Hypokalemia/hypophosphatemia Aggressive electrolyte repletion as ordered. Recheck levels in the morning. 6. History of polysubstance abuse/tobacco dependency/reported baseline asthma/bipolar disorder/GERD Complicates care, management, recovery and prognosis. Nicotine replacement therapy can be utilized while the patient is admitted to the hospital. Continue PPI therapy. TIME: 40 minutes of critical care time, independent of procedures, was spent addressing the patient's acute hypoxemic respiratory failure, severe sepsis, community-acquired versus aspiration pneumonia, influenza A infection, toxic/m etabolic encephalopathy, review of all data and collaboration with the care team. ([id number]) Code Visit 9xxxx: [id number] Critical care first hour
--- NOTE | 2019-01-14 08:07 | PCM.PROGNOTE ---
Patient Problems: Active and Suspected Problems (Last Reviewed 12/13/18 @ 15:11 by Sangeeta Bailey) Acute respiratory failure with hypoxia (Acute) Pneumonia (Acute) Sepsis (Acute) Cardiac enzymes elevated (Acute) Subjective: Day #4 vancomycin and Zosyn Day #3 Tamiflu Day #4 ventilator All events of the past 24 hours been reviewed. She remains febrile with T-max being 101.4 over the past 24 hours. Vital signs are stable, not requiring pressors. She is maintaining a oxygen saturation of 93% on an FiO2 of 65% with a respiratory rate of 24-26. Fluid balance on 01/13/2019 was 3647. The fluid balance since admission is +6944. White blood cell count today is increasing and is 23.4. Hemoglobin is stable at 11.7 and platelets are within normal limits. Potassium is mildly decreased at 3.4 and the BUN is 9 with a creatinine of 0.58. Hemoglobin A1c was 5.6. 6 AM blood sugar is 165. Sputum culture is growing MRSA. BC's have no growth to date Objective: General: Sedated with propofol and fentanyl and mechanically ventilated, does not respond to calling her name or shaking her shoulder HEENT: PERRLA, Atraumatic, normocephalic, no scleral icterus, no carotid bruits, no JVD Lungs: rales left base, coarse rhonchi, no wheezing, symmetric chest expansion currently on VC to control the RR Heart: RRR, 3/6 systolic MM at the LLSB, no gallop, no rub, normal S1, normal S2 Abdomen: Soft, nondistended, hypoactive bowel sounds present, no guarding with palpation, no masses, no hepatosplenomegaly, had a bowel movement this morning Extremities: Edema of the hands and the feet, no clubbing, no cyanosis, peripheral pulses normal Neuro: Cranial nerves II through XII grossly intact, Neuro grossly intact, no focal neurologic deficits, moving all extremities Skin: Warm and dry, no wounds, no rashes, no jaundice, I can find no tract jerad - Physical Exam Vital Signs Temp Pulse Resp BP Pulse Ox 100.3 F H 99 26 H 120/72 93 01/14/19 04:00 01/14/19 07:26 01/14/19 07:00 01/14/19 07:00 01/14/19 07:00 Oxygen Delivery Method Mechanical Ventilator Weight: 202 lb 2.622 oz Body Mass Index (BMI) 32.7 Intake and Output for Last 24 Hours 01/12/19 01/13/19 01/14/19 23:59 23:59 23:59 Intake Total 4766 / 4766 4497 / 4497 1356 / 1356 Output Total 1325 / 1325 850 / 850 950 / 950 Balance 3441 / 3441 3647 / 3647 406 / 406 Microbiology Past 72 Hours 01/12/19 04:15 Gram Stain - Final Sputum, Induced/Lukens Respiratory Culture - Preliminary Staphylococcus aureus 01/12/19 07:40 Respiratory Panel (PCR) - Final Mucosa - Nasopharyngeal Influenza A (Subtype H3) 01/11/19 21:15 Legionella Antigen - Final Urine Catheter - Khalil 01/11/19 21:15 Streptococcus pneumoniae Antigen (M - Final Urine Catheter - Khalil Laboratory Tests Past 24 Hrs 01/13/19 01/13/19 01/14/19 04:10 12:00 04:55 WBC 23.4 H RBC 4.03 L Hgb 11.7 L Hct 35.4 L MCV 87.8 MCH 29.0 MCHC 33.1 RDW 14.2 RDW Differential 44.4 H Plt Count 341 MPV 10.8 Sodium Potassium Chloride Carbon Dioxide Anion Gap BUN Creatinine Estim Creat Clear Calc Est GFR (MDRD) Af Amer Est GFR (MDRD) Non-Af BUN/Creatinine Ratio Glucose Hemoglobin A1c 5.6 Calcium Phosphorus Magnesium Vancomycin Trough 5.5 01/14/19 04:55 WBC RBC Hgb Hct MCV MCH MCHC RDW RDW Differential Plt Count MPV Sodium 144 Potassium 3.4 L Chloride 111 H Carbon Dioxide 24.0 Anion Gap 9 BUN 9 Creatinine 0.58 Estim Creat Clear Calc 118.02 Est GFR (MDRD) Af Amer 152 Est GFR (MDRD) Non-Af 125 BUN/Creatinine Ratio 15.5 Glucose 165 H Hemoglobin A1c Calcium 7.5 L Phosphorus 2.0 L Magnesium 2.2 Vancomycin Trough POC Glucose 01/14/19 01/13/19 01/13/19 05:51 23:00 17:07 POC Glucose 153 H 158 H 128 H 01/13/19 12:08 POC Glucose 146 H Medical Necessity - Tobacco Use Smoking Status: Current every day smoker - Unclear pack per day history. Tobacco Use: Cigarettes Assessment/Plan All Active Problems (Last Reviewed 12/13/18 @ 15:11 by Sangeeta Bailey) Acute respiratory failure with hypoxia (Acute) Pneumonia (Acute) Sepsis (Acute) Cardiac enzymes elevated (Acute) Dental abscess (Acute) Upper respiratory infection (Acute) Impressions 1. severe sepsis due to multilobar pneumonia - suspected aspiration + Influenza A + MRSA pneumonia 2. Acute hypoxic respiratory failure 3. Rhabdomyolysis 4. History of hepatitis C and hepatitis B 5. Bipolar disorder 6. Tobacco dependence 7. Polysubstance abuse 8. Hypocalcemia - resolved. Calcium today corrected for hypoalbuminemia is 9.1. 9. Elevated troponin 10. Sinus tachycardia 11. Abnormal LFTs-improving 12. Possible history of endocarditis-tricuspid regurgitation on the echocardiogram. 13. History of asthma 14. Hypophosphatemia 15. Hyperglycemia with no history of diabetes mellitus, not on steroids, HGBA1C is normal, likely due to stress Increase the Seroquel to 75 BID restart TF Continue vancomycin, Zosyn and Tamiflu. Phosphorus has been supplemented. Hemoglobin is stable Start a daily potassium supplement per the NG Continue sliding insulin scale I spoke with her mother Tonja on the phone. She told us that she was at [facility] when diagnosed with the endocarditis and valve replacement was considered but there was good improvement with the antibiotics and it was not necessary. She is unaware of what medication has helped in the past with the management of the BPD. Code Visit Inpatient E&M: 54091 Subs Hosp L3
[2019-01-14 09:01] LABS: Hep B Surface Antibodies Reactive (.); Hepatitis B Core Ab Total Positive (Negative)
[2019-01-14 09:02] LABS: Hepatitis C Ab >11.0 s/co ratio (0.0-0.9)
--- NOTE | 2019-01-14 10:16 | NURSING ---
spoke with pt's mother, Tonja, about pt's condition
[2019-01-14] MEDS: OSELTAMIVIR PHOSPHATE 6 MG/ML BOTTLE 75 MG GT ×2 (10:45→23:46)
[2019-01-14] MEDS: Polyethylene Glycol 3350 17 GM PACKET GT ×2 (10:45→22:09)
[2019-01-14] MEDS: Chlorhexidine 15 ML PO ×2 (10:45→22:12)
[2019-01-14] MEDS: QUEtiapine 25 MG Tablet 50 MG NG ×2 (10:46→22:09)
[2019-01-14] MEDS: Senna/Docusate Sodium 1 Tablet 2 TABLET GT ×2 (10:46→22:09)
[2019-01-14] MEDS: Aspirin 81 MG TAB.CHEW GT (10:48)
--- NOTE | 2019-01-14 10:54 | CASEMGMT ---
Pt remains on a ventilator today. SW will continue to follow, will speak w/pt when she is able to speak w/this SW. IAIN Fink, TRANSPORTATION PLANNING ENGINEER
--- NOTE | 2019-01-14 11:39 | RAD_ITS ---
STUDY: X-RAY - ABDOMEN/PELVIS REASON FOR EXAM: Female, 33 years old. Nasogastric tube placement. TECHNIQUE: Two AP supine portable views of the abdomen and pelvis. COMPARISON: Portable AP semierect chest x-ray January 13, 2019 FINDINGS:. Ill-defined, predominantly interstitial infiltrates again seen in the visualized lung bases. On the left, there may be superimposed subsegmental atelectasis. Nasogastric tube is again seen in the stomach with a possible kink at the level of its sidehole. There is an unremarkable bowel gas pattern. There is no demonstrated free abdominal air. The visualized liver, spleen and kidneys are grossly normal in size and morphology. Normal soft tissue structures. Normal visualized osseous structures. RAD/Abdomen Single View IMPRESSION: 1. Distal nasogastric tube is in the stomach. There is a possible kink at the level of the sidehole. 2. Unremarkable bowel gas pattern. 3. Persistent bibasilar pulmonary infiltrates. Electronically Signed: Amari Mayen MD at 12:54 EDT , Service support ,
[2019-01-14] MEDS: CHLORHEXIDINE GLUC 2% CLOTH 1 EACH TOWELETTE TOPICAL (11:55)
--- NOTE | 2019-01-14 11:56 | RAD_ITS ---
STUDY: X-RAY - ABDOMEN/PELVIS REASON FOR EXAM: Female, 33 years old. Orogastric tube placement, attempt to 2 of 3. TECHNIQUE: Single AP view of the left abdomen / pelvis. COMPARISON: 2 AP portable views of the abdomen and pelvis 1105 hours. FINDINGS: Ill-defined bibasilar pulmonary infiltrates again noted. The distal orogastric tube is again seen in the stomach, appearing less kinked than on previous exam. There is an unremarkable bowel gas pattern. There is no demonstrated free abdominal air. The visualized liver, spleen and kidneys are grossly normal in size and morphology. Normal soft tissue structures. Normal visualized osseous structures. RAD/Abdomen Single View IMPRESSION: Distal orogastric tube is in the stomach, less kinked than on prior study. Electronically Signed: Amari Mayen MD at 13:49 EDT , Service support ,
[2019-01-14 12:01] LABS: Bedside Glucose 156 mg/dL (70-110)
--- NOTE | 2019-01-14 12:56 | RAD_ITS ---
STUDY: X-RAY - ABDOMEN/PELVIS REASON FOR EXAM: Female, 33 years old. Oral gastric tube placement. TECHNIQUE: Single AP view of the abdomen / pelvis. COMPARISON: Comparison is made with prior study done earlier today. FINDINGS: The tip of the orogastric tube is not seen in the body of the stomach. RAD/Abdomen Single View IMPRESSION: The tip of the orogastric tube is in the body of the stomach. Electronically Signed: Ever See, at 13:56 EDT , Service support ,
--- NOTE | 2019-01-14 13:02 | PCM.HP.ID ---
Problem List (1) Acute respiratory failure with hypoxia Status: Acute Reason for Consult: septic shock Consulted by: Dr. Levy History of Present Illness: The patient is a 33 year old F with h/o endocarditis, polysubstance abuse, dental abscess, hep C who presented to ED 01/11 after being found down. In ED, minimally responsive, required intubation, admitted to icu on azithro and ceftriaxone. Abx broadened to vanc/zosyn. Flu (+), so tamiflu added. Remains febrile, on vent; required levophed last night due to hypotension. ROS unobtainable due to intubation - Medical History Past Medical History (Chronic Problems): Chronic Problems (Last Reviewed 12/13/18 @ 15:11 by Sangeeta Bailey) Tobacco use (Chronic) Polysubstance abuse (Chronic) Hepatitis C (Chronic) Asthma (Chronic) Anxiety (Chronic) Endocarditis (Chronic) Heart murmur (Chronic) Bipolar 1 disorder (Chronic) Manic depression (Chronic) Allergies/Adverse Reactions: Allergies acetaminophen [From Vicodin] Allergy (Severe, Verified 01/11/19 20:49) Vomiting hydrocodone [From Vicodin] Allergy (Severe, Verified 01/11/19 20:49) Vomiting citalopram [From Celexa] Allergy (Verified 01/11/19 20:49) Swollen tongue Home Medications: Ambulatory Orders Medication Instructions Recorded buspirone 30 mg tablet 15 mg PO TID tab 11/05/18 gabapentin 600 mg tablet 600 mg PO TID 11/05/18 hydroxyzine HCl 25 mg tablet 25 mg PO QHS PRN #60 tab 11/05/18 loratadine 10 mg tablet 10 mg PO DAILY #90 tab 11/05/18 medroxyprogesterone 150 mg/mL 150 mg IM [id number] 11/05/18 intramuscular syringe trazodone 150 mg tablet 150 mg PO DAILY #30 tab 11/05/18 albuterol sulfate HFA 90 2 puff INHALATION Q6H PRN #8 g 11/29/18 mcg/actuation aerosol inhaler ondansetron HCl 4 mg tablet 4 mg PO BID-TID PRN #20 tab 11/29/18 benzonatate 200 mg capsule 200 mg PO TID PRN #60 cap 12/13/18 ibuprofen 200 mg tablet 600 mg PO TID-QID PRN #60 tab 12/13/18 prednisone 20 mg tablet 40 mg PO DAILY #10 tab 12/13/18 sertraline 50 mg tablet 75 mg PO DAILY #45 tab 01/06/19 - Social History SMOKING STATUS:: Current every day smoker Vital Signs Temp Pulse Resp BP Pulse Ox 100.5 F H 98 26 H 99/62 92 01/14/19 12:00 01/14/19 12:35 01/14/19 12:35 01/14/19 12:00 01/14/19 12:35 Oxygen Delivery Method Mechanical Ventilator Weight: 91.7 kg Body Mass Index (BMI) 32.7 Microbiology Past 72 Hours 01/12/19 04:15 Gram Stain - Final Sputum, Induced/Lukens Respiratory Culture - Final Meth. resistant Staph. aureus 01/12/19 07:40 Respiratory Panel (PCR) - Final Mucosa - Nasopharyngeal Influenza A (Subtype H3) 01/11/19 21:15 Legionella Antigen - Final Urine Catheter - Khalil 01/11/19 21:15 Streptococcus pneumoniae Antigen (M - Final Urine Catheter - Khalil Laboratory Tests Past 24 Hrs 01/12/19 01/14/19 01/14/19 11:50 04:55 04:55 WBC 23.4 H RBC 4.03 L Hgb 11.7 L Hct 35.4 L MCV 87.8 MCH 29.0 MCHC 33.1 RDW 14.2 RDW Differential 44.4 H Plt Count 341 MPV 10.8 Sodium 144 Potassium 3.4 L Chloride 111 H Carbon Dioxide 24.0 Anion Gap 9 BUN 9 Creatinine 0.58 Estim Creat Clear Calc 118.02 Est GFR (MDRD) Af Amer 152 Est GFR (MDRD) Non-Af 125 BUN/Creatinine Ratio 15.5 Glucose 165 H Calcium 7.5 L Phosphorus 2.0 L Magnesium 2.2 Hepatitis A IgM Ab Negative Hepatitis A Ab Total Negative Hep Bs Antigen Negative Hep B Core Total Ab Positive H Hep B Core IgM Ab Negative Hepatitis C Ab Confirm >11.0 H - Other Studies Radiology: [] reviewed Other Studies: [] Route of nutrition/ use of supplements: [] Nutritional Intake: [] IV Site: [] Khalil Catheter: [] - Physical Exam General: - - intubated, sedated HEENT: Atraumatic, PERRLA, EOMI Neck: Supple, No Nodes Lungs: Diminished, Rhonchi Cardiovascular: No murmurs, Tachycardic Abdomen: Soft, Non Tender, Non-Distended Extremities: Edema Skin: No rashes IV Site: PICC, without redness Musculoskeletal: No Tenderness to Palpation of Joints or Extremities - Assessment/Plan Antibiotics: [] Assessment/Plan: [] Active and Suspected Problems (Last Reviewed 12/13/18 @ 15:11 by Sangeeta Bailey) Acute respiratory failure with hypoxia (Acute) Pneumonia (Acute) Sepsis (Acute) Cardiac enzymes elevated (Acute) septic shock with flu, MRSA pneumonia, and suspected aspiration pneumonia in pt with polysubstance abuse, hep C, and h/o endocarditis - Bcx neg so far. Echo showed no veg. Will need further records from [facility] re:endocarditis. Continue vanc/zosyn/tamiflu for now. 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 HIV neg. LFTs with some transaminitis, improving. Will follow, thank you, d/w Dr. Levy.
[2019-01-14] MEDS: Vital AF 1.2 Cal Liquid 1,000 ML 65 ML GT (15:02)
[2019-01-14 17:41] LABS: Bedside Glucose 133 mg/dL (70-110)
[2019-01-14 18:17] LABS: Vancomycin, Trough Level 15.2 ug/mL (5.0-15.0)
--- NOTE | 2019-01-14 18:31 | PCM.RX.CS ---
Consult Pharmacy has been consulted to manage selected antiobiotic: Vancomycin Type of Consult: Follow-up Suspected Infection: Pneumonia Prior Doses of Antibiotics Received/Current Regimen: Currently on vancomycin 1000mg IV q8h with the previous 2 doses given at 04:00 and 10:45 today. Labs: Sodium 144 mmol/L (136-145) 01/14/19 04:55 Potassium 3.4 mmol/L (3.5-5.1) L 01/14/19 04:55 Chloride 111 mmol/L (98-107) H 01/14/19 04:55 Carbon Dioxide 24.0 mmol/L (21.0-32.0) 01/14/19 04:55 Anion Gap 9 (5-15) 01/14/19 04:55 BUN 9 mg/dL (7-18) 01/14/19 04:55 Creatinine 0.58 mg/dL (0.55-1.02) 01/14/19 04:55 Est GFR (MDRD) Af Amer 152 mL/min (>60) 01/14/19 04:55 Est GFR (MDRD) Non-Af 125 mL/min (>60) 01/14/19 04:55 BUN/Creatinine Ratio 15.5 RATIO (10-20) 01/14/19 04:55 Glucose 165 mg/dL (74-106) H 01/14/19 04:55 Vancomycin Trough 15.2 ug/mL (5.0-15.0) H 01/14/19 17:30 Microbiology: Microbiology 01/12/19 04:15 Sputum, Induced/Lukens Gram Stain - Final 01/12/19 04:15 Sputum, Induced/Lukens Respiratory Culture - Final Meth. resistant Staph. aureus 01/12/19 07:40 Mucosa - Nasopharyngeal Respiratory Panel (PCR) - Final Influenza A (Subtype H3) 01/11/19 21:15 Urine Catheter - Khalil Legionella Antigen - Final 01/11/19 21:15 Urine Catheter - Khalil Streptococcus pneumoniae Antigen (M - Final Estimated Creatinine Clearance: 118 ml/min Goal Trough: 10-15 mcg/mL Pharmacy Plan for Drug Dosing: Trough obtained this evening at 17:30 came back as 15.2mg/L (drawn about 6.75 hours after the previous dose). This is just above goal range of 10-15 but the trough most likely would have been within goal range if it had been drawn at the 7.5 hour jerad as desired. Another trough will be ordered to be drawn on Thursday to follow-up once again. Pharmacy Service will continue to monitor and adjust dosing as required. Follow-Up Labs: Trough Vancomycin Labs to be done on [date and time ordered]: 01/17/19 09:30
[2019-01-14] MEDS: Famotidine 20 MG Tablet GT (22:09)
[2019-01-15] VITALS (57 sets, daily range): BP systolic 86–147; BP diastolic 48–98; PULSE 82–113; RESP 16–30; TEMP 37.5–38.3; O2SAT 60–98
[2019-01-15 00:10] LABS: Bedside Glucose 134 mg/dL (70-110)
[2019-01-15] MEDS: Vancomycin IV 1,000 MG/200 ML BAG 200 MG IV ×2 (02:45→11:00)
[2019-01-15] MEDS: Propofol 10MG/Ml 1,000 MG/100 ML Bottle 5.16 MG CONT INF ×5 (02:45→22:54)
[2019-01-15] MEDS: Ipratropium/Albuterol Sulfate 3 ML AMPUL.NEB INHALATION ×6 (03:30→22:45)
[2019-01-15] MEDS: CHLORHEXIDINE GLUC 2% CLOTH 1 EACH TOWELETTE TOPICAL (04:55)
[2019-01-15] MEDS: fentaNYL drip 100 ML 2.5 MCG IV ×3 (04:55→18:24)
--- NOTE | 2019-01-15 06:00 | PCM.PN.INT ---
Subjective: The patient was seen and examined at the bedside this morning. Events from the last 24 hours have been reviewed. The patient has remained febrile over most of the night. FiO2 is currently 60%. The patient is currently documented to be overall net +8.3 L for the admission. No issues were identified by the overnight nursing staff. The patient is currently tolerating her tube feeds. Her Levophed is currently infusing at 8 mcg. She remains on propofol at 25 mg and fentanyl at 150 mcg for sedation. Objective: The patient's most recent lab work, culture data and imaging studies have all been personally reviewed. Surface echocardiogram revealed evidence of stage I diastolic dysfunction with an ejection fraction of 65%. Right ventricular systolic pressure was estimated to be 53 mmHg. Liver ultrasound revealed mild hepatomegaly along with a trace amount of pericholecystic fluid and sludge within the gallbladder lumen. Respiratory viral panel was positive for influenza A. Strep and urine Legionella antigens were both negative. Blood cultures have been unrevealing to date. Sputum culture was positive for MRSA. General: - - Remains intubated, sedated and mechanically ventilated. HEENT: Atraumatic, PERRLA, Normocephalic Oral: Moist Mucosa, - - Endotracheal and OG tubes remain in place Neck: Supple, No Nodes, Trachea Midline Lungs: Diminished, - - Coarse mechanical breath sounds. No wheezes, rales or rhonchi. Cardiovascular: Normal S1, Normal S2, Murmur, Tachycardic Abdomen: Bowel Sounds Present, Soft, Non Tender Extremities: No clubbing, No cyanosis, - - Bilateral lower externally edema present Skin: - - No significant change from previous Musculoskeletal: No Tenderness to Palpation of Joints or Extremities Lymphatic: No Cervical, Supraclavicular, or Inguinal Adenopathy Neurological: - - No focal deficits. Moves extremities spontaneously. Currently sedated. Vital Signs Temp Pulse Resp BP Pulse Ox 37.8 C H 91 25 H 92/58 L 95 01/15/19 04:00 01/15/19 05:00 01/15/19 05:00 01/15/19 05:00 01/15/19 05:00 Oxygen Delivery Method Mechanical Ventilator Weight: 202 lb 2.622 oz Body Mass Index (BMI) 32.7 Intake and Output for Last 24 Hours 01/13/19 01/14/19 01/15/19 23:59 23:59 23:59 Intake Total 4497 / 4497 2752 / 2752 957 / 957 Output Total 850 / 850 1750 / 1750 200 / 200 Balance 3647 / 3647 1002 / 1002 757 / 757 Labs (Last 48 Hours) 01/12/19 01/13/19 01/13/19 11:50 04:10 12:00 WBC RBC Hgb Hct MCV MCH MCHC RDW RDW Differential Plt Count MPV Sodium Potassium Chloride Carbon Dioxide Anion Gap BUN Creatinine Estim Creat Clear Calc Est GFR (MDRD) Af Amer Est GFR (MDRD) Non-Af BUN/Creatinine Ratio Glucose Hemoglobin A1c 5.6 Calcium Phosphorus Magnesium Vancomycin Trough 5.5 Hepatitis A IgM Ab Negative Hepatitis A Ab Total Negative Hep Bs Antigen Negative Hep B Core Total Ab Positive H Hep B Core IgM Ab Negative Hepatitis C Ab Confirm >11.0 H POC Glucose 01/13/19 01/13/19 01/13/19 12:08 17:07 23:00 WBC RBC Hgb Hct MCV MCH MCHC RDW RDW Differential Plt Count MPV Sodium Potassium Chloride Carbon Dioxide Anion Gap BUN Creatinine Estim Creat Clear Calc Est GFR (MDRD) Af Amer Est GFR (MDRD) Non-Af BUN/Creatinine Ratio Glucose Hemoglobin A1c Calcium Phosphorus Magnesium Vancomycin Trough Hepatitis A IgM Ab Hepatitis A Ab Total Hep Bs Antigen Hep B Core Total Ab Hep B Core IgM Ab Hepatitis C Ab Confirm POC Glucose 146 H 128 H 158 H 01/14/19 01/14/19 01/14/19 04:55 04:55 05:51 WBC 23.4 H RBC 4.03 L Hgb 11.7 L Hct 35.4 L MCV 87.8 MCH 29.0 MCHC 33.1 RDW 14.2 RDW Differential 44.4 H Plt Count 341 MPV 10.8 Sodium 144 Potassium 3.4 L Chloride 111 H Carbon Dioxide 24.0 Anion Gap 9 BUN 9 Creatinine 0.58 Estim Creat Clear Calc 118.02 Est GFR (MDRD) Af Amer 152 Est GFR (MDRD) Non-Af 125 BUN/Creatinine Ratio 15.5 Glucose 165 H Hemoglobin A1c Calcium 7.5 L Phosphorus 2.0 L Magnesium 2.2 Vancomycin Trough Hepatitis A IgM Ab Hepatitis A Ab Total Hep Bs Antigen Hep B Core Total Ab Hep B Core IgM Ab Hepatitis C Ab Confirm POC Glucose 153 H 01/14/19 01/14/19 01/14/19 11:10 17:30 17:34 WBC RBC Hgb Hct MCV MCH MCHC RDW RDW Differential Plt Count MPV Sodium Potassium Chloride Carbon Dioxide Anion Gap BUN Creatinine Estim Creat Clear Calc Est GFR (MDRD) Af Amer Est GFR (MDRD) Non-Af BUN/Creatinine Ratio Glucose Hemoglobin A1c Calcium Phosphorus Magnesium Vancomycin Trough 15.2 H Hepatitis A IgM Ab Hepatitis A Ab Total Hep Bs Antigen Hep B Core Total Ab Hep B Core IgM Ab Hepatitis C Ab Confirm POC Glucose 156 H 133 H 01/14/19 23:44 WBC RBC Hgb Hct MCV MCH MCHC RDW RDW Differential Plt Count MPV Sodium Potassium Chloride Carbon Dioxide Anion Gap BUN Creatinine Estim Creat Clear Calc Est GFR (MDRD) Af Amer Est GFR (MDRD) Non-Af BUN/Creatinine Ratio Glucose Hemoglobin A1c Calcium Phosphorus Magnesium Vancomycin Trough Hepatitis A IgM Ab Hepatitis A Ab Total Hep Bs Antigen Hep B Core Total Ab Hep B Core IgM Ab Hepatitis C Ab Confirm POC Glucose 134 H Microbiology 01/12/19 04:15 Sputum, Induced/Lukens Gram Stain - Final 01/12/19 04:15 Sputum, Induced/Lukens Respiratory Culture - Final Meth. resistant Staph. aureus Clinical Impression(s) from Imaging Studies Chest X-Ray 01/11/19 20:08 IMPRESSION: Endotracheal and nasogastric tubes appearing in adequate position. Bilateral pulmonary infiltrates left side more severely affected than right. Electronically Signed: Keegan Munoz MD at 21:57 EDT , Service support , Liver Ultrasound 01/12/19 05:55 IMPRESSION: Mild hepatomegaly. Trace amount of pericholecystic fluid and sludge within the gallbladder lumen. Electronically Signed: Ever See, at 16:11 EDT , Service support , Chest X-Ray 01/13/19 07:54 IMPRESSION: Lines and tubes as described. Bilateral infiltrates, increasing in the right lung base since previous study. Electronically Signed: Michael Hernandez MD at 17:20 EDT , Service support , KUB X-Ray 01/14/19 11:39 IMPRESSION: 1. Distal nasogastric tube is in the stomach. There is a possible kink at the level of the sidehole. 2. Unremarkable bowel gas pattern. 3. Persistent bibasilar pulmonary infiltrates. Electronically Signed: Amari Mayen MD at 12:54 EDT , Service support , KUB X-Ray 01/14/19 11:56 IMPRESSION: Distal orogastric tube is in the stomach, less kinked than on prior study. Electronically Signed: Amari Mayen MD at 13:49 EDT , Service support , KUB X-Ray 01/14/19 12:56 IMPRESSION: The tip of the orogastric tube is in the body of the stomach. Electronically Signed: Ever See, at 13:56 EDT , Service support , Medical Necessity - Tobacco Use Smoking Status: Current every day smoker - Unclear pack per day history. Tobacco Use: Cigarettes Assessment/Plan All Active Problems (Last Reviewed 12/13/18 @ 15:11 by Sangeeta Bailey) Acute respiratory failure with hypoxia (Acute) Pneumonia (Acute) Sepsis (Acute) Cardiac enzymes elevated (Acute) Dental abscess (Acute) Upper respiratory infection (Acute) RECOMMENDATIONS: 1. Continue to wean FiO2 to maintain an oxygen saturation at or above 90%. 2. Continue Levophed to maintain a mean arterial pressure at or above 65 mmHg. 3. Continue tube feeds and advance to goal rate. 4. Continue bronchodilators. 5. Continue fentanyl and propofol for sedation. 6. Continue appropriate ICU prophylaxis 7. Phosphorus repletion as ordered. 8. Continue Tamiflu and antibiotics per ID recommendations. IMPRESSIONS: 1. Acute hypoxemic respiratory failure secondary to influenza A and multifocal MRSA pneumonia The patient was intubated in the emergency department due to refractory agitation and hypoxemia. Not only does the patient have an influenza A infection, she has evidence of multifocal pneumonia with sputum that is positive for MRSA. The patient will remain on Tamiflu and antibiotics, under the discretion of infectious diseases. We will continue to wean her FiO2 as tolerated to maintain an oxygen saturation of 90%. Continue scheduled bronchodilators. Continue tube feeds and increase rate to goal. 2. Septic shock secondary to influenza A with superimposed MRSA pneumonia Continue current supportive measures. The patient has been more than adequately volume resuscitated. Continue Levophed and wean as tolerated to maintain a mean arterial pressure at or above 65 mmHg. Continue antibiotics and Tamiflu per ID recommendations. 3. Toxic/metabolic encephalopathy Likely multifactorial in etiology with drug intoxication/overdose and pulmonary infectious process contributing. Continue current supportive measures with invasive mechanical ventilatory support. Continue propofol and fentanyl for sedation with a goal to maintain a RASS of -1 to 1. 4. Personal history of endocarditis/heart failure with preserved ejection fraction/tricuspid valve insufficiency/pulmonary hypertension Continue current supportive measures as noted above. Surface echocardiogram did reveal evidence of stage I diastolic dysfunction, along with moderate tricuspid valve insufficiency and a right ventricular pressure estimated to be 53 mmHg. The patient may require eventual diuresis, given her overall volume positive status. However, I would hold off on initiating diuretics until the patient has been weaned from Levophed. 5. Hypophosphatemia Aggressive electrolyte repletion as ordered. Recheck levels in the morning. 6. History of polysubstance abuse/tobacco dependency/reported baseline asthma/bipolar disorder/GERD Complicates care, management, recovery and prognosis. Continue nicotine replacement therapy while admitted to the hospital. Physical therapy to work with patient, once medically stable. TIME: 40 minutes of critical care time, independent of procedures, was spent addressing the patient's acute hypoxemic respiratory failure, severe sepsis, influenza A infection, multifocal MRSA pneumonia, toxic/metabolic encephalopathy, review of all data and collaboration with the care team. ([id number]) Code Visit [id number]: [id number] Critical care first hour
--- NOTE | 2019-01-15 06:03 | PN_ITS ---
Subjective: The patient was seen and examined at the bedside this morning. Events from the last 24 hours have been reviewed. The patient has remained febrile over most of the night. FiO2 is currently 60%. The patient is currently documented to be overall net +8.3 L for the admission. No issues were identified by the overnight nursing staff. The patient is currently tolerating her tube feeds. Her Levophed is currently infusing at 8 mcg. She remains on propofol at 25 mg and fentanyl at 150 mcg for sedation. Objective: The patient's most recent lab work, culture data and imaging studies have all been personally reviewed. Surface echocardiogram revealed evidence of stage I diastolic dysfunction with an ejection fraction of 65%. Right ventricular systolic pressure was estimated to be 53 mmHg. Liver ultrasound revealed mild hepatomegaly along with a trace amount of pericholecystic fluid and sludge within the gallbladder lumen. Respiratory viral panel was positive for influenza A. Strep and urine Legionella antigens were both negative. Blood cultures have been unrevealing to date. Sputum culture was positive for MRSA. General: - - Remains intubated, sedated and mechanically ventilated. HEENT: Atraumatic, PERRLA, Normocephalic Oral: Moist Mucosa, - - Endotracheal and OG tubes remain in place Neck: Supple, No Nodes, Trachea Midline Lungs: Diminished, - - Coarse mechanical breath sounds. No wheezes, rales or rhonchi. Cardiovascular: Normal S1, Normal S2, Murmur, Tachycardic Abdomen: Bowel Sounds Present, Soft, Non Tender Extremities: No clubbing, No cyanosis, - - Bilateral lower externally edema present Skin: - - No significant change from previous Musculoskeletal: No Tenderness to Palpation of Joints or Extremities Lymphatic: No Cervical, Supraclavicular, or Inguinal Adenopathy Neurological: - - No focal deficits. Moves extremities spontaneously. Currently sedated. Vital Signs Temp Pulse Resp BP Pulse Ox 37.8 C H 91 25 H 92/58 L 95 01/15/19 04:00 01/15/19 05:00 01/15/19 05:00 01/15/19 05:00 01/15/19 05:00 Oxygen Delivery Method Mechanical Ventilator Weight: 202 lb 2.622 oz Body Mass Index (BMI) 32.7 Intake and Output for Last 24 Hours 01/13/19 01/14/19 01/15/19 23:59 23:59 23:59 Intake Total 4497 / 4497 2752 / 2752 957 / 957 Output Total 850 / 850 1750 / 1750 200 / 200 Balance 3647 / 3647 1002 / 1002 757 / 757 Labs (Last 48 Hours) 01/12/19 01/13/19 01/13/19 11:50 04:10 12:00 WBC RBC Hgb Hct MCV MCH MCHC RDW RDW Differential Plt Count MPV Sodium Potassium Chloride Carbon Dioxide Anion Gap BUN Creatinine Estim Creat Clear Calc Est GFR (MDRD) Af Amer Est GFR (MDRD) Non-Af BUN/Creatinine Ratio Glucose Hemoglobin A1c 5.6 Calcium Phosphorus Magnesium Vancomycin Trough 5.5 Hepatitis A IgM Ab Negative Hepatitis A Ab Total Negative Hep Bs Antigen Negative Hep B Core Total Ab Positive H Hep B Core IgM Ab Negative Hepatitis C Ab Confirm >11.0 H POC Glucose 01/13/19 01/13/19 01/13/19 12:08 17:07 23:00 WBC RBC Hgb Hct MCV MCH MCHC RDW RDW Differential Plt Count MPV Sodium Potassium Chloride Carbon Dioxide Anion Gap BUN Creatinine Estim Creat Clear Calc Est GFR (MDRD) Af Amer Est GFR (MDRD) Non-Af BUN/Creatinine Ratio Glucose Hemoglobin A1c Calcium Phosphorus Magnesium Vancomycin Trough Hepatitis A IgM Ab Hepatitis A Ab Total Hep Bs Antigen Hep B Core Total Ab Hep B Core IgM Ab Hepatitis C Ab Confirm POC Glucose 146 H 128 H 158 H 01/14/19 01/14/19 01/14/19 04:55 04:55 05:51 WBC 23.4 H RBC 4.03 L Hgb 11.7 L Hct 35.4 L MCV 87.8 MCH 29.0 MCHC 33.1 RDW 14.2 RDW Differential 44.4 H Plt Count 341 MPV 10.8 Sodium 144 Potassium 3.4 L Chloride 111 H Carbon Dioxide 24.0 Anion Gap 9 BUN 9 Creatinine 0.58 Estim Creat Clear Calc 118.02 Est GFR (MDRD) Af Amer 152 Est GFR (MDRD) Non-Af 125 BUN/Creatinine Ratio 15.5 Glucose 165 H Hemoglobin A1c Calcium 7.5 L Phosphorus 2.0 L Magnesium 2.2 Vancomycin Trough Hepatitis A IgM Ab Hepatitis A Ab Total Hep Bs Antigen Hep B Core Total Ab Hep B Core IgM Ab Hepatitis C Ab Confirm POC Glucose 153 H 01/14/19 01/14/19 01/14/19 11:10 17:30 17:34 WBC RBC Hgb Hct MCV MCH MCHC RDW RDW Differential Plt Count MPV Sodium Potassium Chloride Carbon Dioxide Anion Gap BUN Creatinine Estim Creat Clear Calc Est GFR (MDRD) Af Amer Est GFR (MDRD) Non-Af BUN/Creatinine Ratio Glucose Hemoglobin A1c Calcium Phosphorus Magnesium Vancomycin Trough 15.2 H Hepatitis A IgM Ab Hepatitis A Ab Total Hep Bs Antigen Hep B Core Total Ab Hep B Core IgM Ab Hepatitis C Ab Confirm POC Glucose 156 H 133 H 01/14/19 23:44 WBC RBC Hgb Hct MCV MCH MCHC RDW RDW Differential Plt Count MPV Sodium Potassium Chloride Carbon Dioxide Anion Gap BUN Creatinine Estim Creat Clear Calc Est GFR (MDRD) Af Amer Est GFR (MDRD) Non-Af BUN/Creatinine Ratio Glucose Hemoglobin A1c Calcium Phosphorus Magnesium Vancomycin Trough Hepatitis A IgM Ab Hepatitis A Ab Total Hep Bs Antigen Hep B Core Total Ab Hep B Core IgM Ab Hepatitis C Ab Confirm POC Glucose 134 H Microbiology 01/12/19 04:15 Sputum, Induced/Lukens Gram Stain - Final 01/12/19 04:15 Sputum, Induced/Lukens Respiratory Culture - Final Meth. resistant Staph. aureus Clinical Impression(s) from Imaging Studies Chest X-Ray 01/11/19 20:08 IMPRESSION: Endotracheal and nasogastric tubes appearing in adequate position. Bilateral pulmonary infiltrates left side more severely affected than right. Electronically Signed: Keegan Munoz MD at 21:57 EDT , Service support , Liver Ultrasound 01/12/19 05:55 IMPRESSION: Mild hepatomegaly. Trace amount of pericholecystic fluid and sludge within the gallbladder lumen. Electronically Signed: Ever See, at 16:11 EDT , Service support , Chest X-Ray 01/13/19 07:54 IMPRESSION: Lines and tubes as described. Bilateral infiltrates, increasing in the right lung base since previous study. Electronically Signed: Michael Hernandez MD at 17:20 EDT , Service support , KUB X-Ray 01/14/19 11:39 IMPRESSION: 1. Distal nasogastric tube is in the stomach. There is a possible kink at the level of the sidehole. 2. Unremarkable bowel gas pattern. 3. Persistent bibasilar pulmonary infiltrates. Electronically Signed: Amari Mayen MD at 12:54 EDT , Service support , KUB X-Ray 01/14/19 11:56 IMPRESSION: Distal orogastric tube is in the stomach, less kinked than on prior study. Electronically Signed: Amari Mayen MD at 13:49 EDT , Service support , KUB X-Ray 01/14/19 12:56 IMPRESSION: The tip of the orogastric tube is in the body of the stomach. Electronically Signed: Ever See, at 13:56 EDT , Service support , Medical Necessity - Tobacco Use Smoking Status: Current every day smoker - Unclear pack per day history. Tobacco Use: Cigarettes Assessment/Plan All Active Problems (Last Reviewed 12/13/18 @ 15:11 by Sangeeta Bailey) Acute respiratory failure with hypoxia (Acute) Pneumonia (Acute) Sepsis (Acute) Cardiac enzymes elevated (Acute) Dental abscess (Acute) Upper respiratory infection (Acute) RECOMMENDATIONS: 1. Continue to wean FiO2 to maintain an oxygen saturation at or above 90%. 2. Continue Levophed to maintain a mean arterial pressure at or above 65 mmHg. 3. Continue tube feeds and advance to goal rate. 4. Continue bronchodilators. 5. Continue fentanyl and propofol for sedation. 6. Continue appropriate ICU prophylaxis 7. Phosphorus repletion as ordered. 8. Continue Tamiflu and antibiotics per ID recommendations. IMPRESSIONS: 1. Acute hypoxemic respiratory failure secondary to influenza A and multifocal MRSA pneumonia The patient was intubated in the emergency department due to refractory agitation and hypoxemia. Not only does the patient have an influenza A infection, she has evidence of multifocal pneumonia with sputum that is positive for MRSA. The patient will remain on Tamiflu and antibiotics, under the discretion of infectious diseases. We will continue to wean her FiO2 as tolerated to maintain an oxygen saturation of 90%. Continue scheduled bronchodilators. Continue tube feeds and increase rate to goal. 2. Septic shock secondary to influenza A with superimposed MRSA pneumonia Continue current supportive measures. The patient has been more than adequately volume resuscitated. Continue Levophed and wean as tolerated to maintain a mean arterial pressure at or above 65 mmHg. Continue antibiotics and Tamiflu per ID recommendations. 3. Toxic/metabolic encephalopathy Likely multifactorial in etiology with drug intoxication/overdose and pulmonary infectious process contributing. Continue current supportive measures with invasive mechanical ventilatory support. Continue propofol and fentanyl for sedation with a goal to maintain a RASS of -1 to 1. 4. Personal history of endocarditis/heart failure with preserved ejection fraction/tricuspid valve insufficiency/pulmonary hypertension Continue current supportive measures as noted above. Surface echocardiogram did reveal evidence of stage I diastolic dysfunction, along with moderate tricuspid valve insufficiency and a right ventricular pressure estimated to be 53 mmHg. The patient may require eventual diuresis, given her overall volume positive status. However, I would hold off on initiating diuretics until the patient has been weaned from Levophed. 5. Hypophosphatemia Aggressive electrolyte repletion as ordered. Recheck levels in the morning. 6. History of polysubstance abuse/tobacco dependency/reported baseline asthma/bipolar disorder/GERD Complicates care, management, recovery and prognosis. Continue nicotine replacement therapy while admitted to the hospital. Physical therapy to work with patient, once medically stable. TIME: 40 minutes of critical care time, independent of procedures, was spent addressing the patient's acute hypoxemic respiratory failure, severe sepsis, influenza A infection, multifocal MRSA pneumonia, toxic/metabolic encephalopathy, review of all data and collaboration with the care team. ([id number]) Code Visit 9xxxx: [id number] Critical care first hour
[2019-01-15] MEDS: Insulin Lispro 100 UNIT/ML INSULN.PEN SC (06:24)
[2019-01-15] MEDS: Acetaminophen 650 MG/20 ML UDC GT ×4 (06:24→23:00)
[2019-01-15] MEDS: Enoxaparin 40 MG/0.4 ML Syringe SC (06:25)
[2019-01-15 06:35] LABS: Bedside Glucose 161 mg/dL (70-110)
[2019-01-15 06:48] LABS: Hematocrit 37.4 % (37-47); Hemoglobin 12.2 g/dl (12.0-15.0); Mean Corp Hgb Conc 32.6 g/gl (32-36); Mean Corpuscular Hgb 29.3 pg (27.0-32.0); Mean Corpuscular Volume 89.7 fL (81-99); Platelet Count 304 K/mm3 (150-450); RBC Distribution Width CV 14.7 % (11.6-14.6); RBC Distribution Width SD 47.7 fl (35.1-43.9); Red Blood Count 4.17 M/mm3 (4.2-5.4); White Blood Count 25.4 K/mm3 (4.4-11.0)
[2019-01-15 06:49] LABS: Differential Indicated MANUAL DIFF; POSITIVE COUNT YES; POSITIVE DIFFERENTIAL YES; POSITIVE MORPHOLOGY YES
[2019-01-15 06:50] LABS: Absolute Nucleated RBC Count 0.54 10^3/uL (0-5); NRBC Flagged by Analyzer 2.1 % (0-5)
[2019-01-15 06:53] LABS: Anion Gap 7 (5-15); BUN 13 mg/dL (7-18); BUN/Creat Ratio 20.5 RATIO (10-20); Calcium,Total 7.7 mg/dL (8.5-10.1); Chloride 110 mmol/L (98-107); Creatinine, Serum 0.64 mg/dL (0.55-1.02); EST Glomerular Filtration Rate 113 mL/min (>60); Est Glom Filt Rate - Afr Amer 137 mL/min (>60); Estimated Creatinine Clearance 106.95 ml/min; Glucose 153 mg/dL (74-106); Magnesium 2.3 mg/dL (1.6-2.6); Phosphorus 1.8 mg/dL (2.5-4.9); Potassium 3.8 mmol/L (3.5-5.1); Sodium Level 144 mmol/L (136-145)
--- NOTE | 2019-01-15 06:57 | PCM.PROGNOTE ---
Patient Problems: Active and Suspected Problems (Last Reviewed 12/13/18 @ 15:11 by Sangeeta Bailey) Acute respiratory failure with hypoxia (Acute) Pneumonia (Acute) Sepsis (Acute) Cardiac enzymes elevated (Acute) Subjective: Day #5 antibiotics-vancomycin and Zosyn Day #4 Tamiflu Day #5 ventilator All events of the past 24 hours have been reviewed. Antibiotic Day #5-and Vancomycin and Zosyn, Tamiflu No. 4 Ventilator Day #5 TMAX: 101.7. Current temp is 100 ?F Vital signs: Started on Levophed this morning at 8 mcg and this has now been weaned down to 5 mcg Fluid balance: Fluid balance on 01/14/2019 was +1002. Fluid balance since admission is positive for 8908 Urine output: Urine output for 01/14/2019 was 1300 cc and she had 400 cc out overnight. Weight: The weight has increased from 189 pounds and 9 ounces at admission to 208 pounds and 5 ounces today. All radiologic testing was reviewed: All labs were personally reviewed: White blood cell count today continues to increase and is 25,400. Hemoglobin is stable at 12.2 and platelets are within normal limits. BMP is unremarkable and the creatinine is 0.64. Blood sugars are all less than 165. Hemoglobin A1c was 5.6. Microbiology: Sputum is positive for MRSA. Respiratory panel positive for influenza A, subtype 3. Blood cultures are pending Telemetry: NSR/ST, nmo significant ventricular ectopy ECHO: EF 65%, stage I diastolic dysfunction, 2+ TR, elevated right ventricular systolic pressure at 53 Secretions for ETT: scant, thin BM - 01/15 Tolerating TF without residuals Subjective: remains sedated on Fentanyl and Propofol and mechanically ventilated - Physical Exam General: - - sedated. Very diaphoretic today. HEENT: Atraumatic, Normocephalic, - - Pupils are equal and responsive to light Oral: Dry Mucosa Neck: Supple, No Nodes, Trachea Midline Lungs: Clear to auscultation, Diminished Cardiovascular: Regular Rhythm, Normal S1, Normal S2, Murmur - systolic MM 3/6 at the LLSB and the apex, No rub noted, No Gallop, Tachycardic Abdomen: Soft, Non-Distended, Hypoactive Bowel Sounds, Obese Extremities: No clubbing, No cyanosis, Edema, - - distal LE's are cool to the touch with no mottling Skin: No rashes, No breakdown Musculoskeletal: No Muscle Wasting Neurological: Cranial nerves II-XII grossly intact, Neuro grossly intact Vital Signs Temp Pulse Resp BP Pulse Ox 100.0 F H 104 H 25 H 123/79 H 92 01/15/19 04:00 01/15/19 06:00 01/15/19 06:00 01/15/19 06:45 01/15/19 06:00 Oxygen Delivery Method Mechanical Ventilator Weight: 208 lb 5.389 oz Body Mass Index (BMI) 32.7 Intake and Output for Last 24 Hours 01/13/19 01/14/19 01/15/19 23:59 23:59 23:59 Intake Total 4497 / 4497 2752 / 2752 1768 / 1768 Output Total 850 / 850 1750 / 1750 400 / 400 Balance 3647 / 3647 1002 / 1002 1368 / 1368 Microbiology Past 72 Hours 01/12/19 04:15 Gram Stain - Final Sputum, Induced/Lukens Respiratory Culture - Final Meth. resistant Staph. aureus 01/12/19 07:40 Respiratory Panel (PCR) - Final Mucosa - Nasopharyngeal Influenza A (Subtype H3) Laboratory Tests Past 24 Hrs 01/12/19 01/14/19 01/15/19 11:50 17:30 06:30 WBC 25.4 H RBC 4.17 L Hgb 12.2 Hct 37.4 MCV 89.7 MCH 29.3 MCHC 32.6 RDW 14.7 H RDW Differential 47.7 H Plt Count 304 MPV 11.0 Neut % (Auto) Not Reportable Absolute Neuts (auto) Not Reportable Total Counted Pending Nucleated RBC % 2.1 Absolute Retic 0.54 Sodium Potassium Chloride Carbon Dioxide Anion Gap BUN Creatinine Estim Creat Clear Calc Est GFR (MDRD) Af Amer Est GFR (MDRD) Non-Af BUN/Creatinine Ratio Glucose Calcium Phosphorus Magnesium B-Natriuretic Peptide Vancomycin Trough 15.2 H Hepatitis A IgM Ab Negative Hepatitis A Ab Total Negative Hep Bs Antigen Negative Hep B Core Total Ab Positive H Hep B Core IgM Ab Negative Hepatitis C Ab Confirm >11.0 H 01/15/19 01/15/19 06:30 06:30 WBC RBC Hgb Hct MCV MCH MCHC RDW RDW Differential Plt Count MPV Neut % (Auto) Absolute Neuts (auto) Total Counted Nucleated RBC % Absolute Retic Sodium 144 Potassium 3.8 Chloride 110 H Carbon Dioxide 27.0 Anion Gap 7 BUN 13 Creatinine 0.64 Estim Creat Clear Calc 106.95 Est GFR (MDRD) Af Amer 137 Est GFR (MDRD) Non-Af 113 BUN/Creatinine Ratio 20.5 H Glucose 153 H Calcium 7.7 L Phosphorus 1.8 L Magnesium 2.3 B-Natriuretic Peptide Pending Vancomycin Trough Hepatitis A IgM Ab Hepatitis A Ab Total Hep Bs Antigen Hep B Core Total Ab Hep B Core IgM Ab Hepatitis C Ab Confirm POC Glucose 01/15/19 01/14/19 01/14/19 06:17 23:44 17:34 POC Glucose 161 H 134 H 133 H 01/14/19 11:10 POC Glucose 156 H Medical Necessity - Tobacco Use Smoking Status: Current every day smoker - Unclear pack per day history. Tobacco Use: Cigarettes Assessment/Plan All Active Problems (Last Reviewed 12/13/18 @ 15:11 by Sangeeta Bailey) Acute respiratory failure with hypoxia (Acute) Pneumonia (Acute) Sepsis (Acute) Cardiac enzymes elevated (Acute) Dental abscess (Acute) Upper respiratory infection (Acute) Impressions 1. Septic shock requiring pressors due to multilobar pneumonia - suspected aspiration + Influenza A + MRSA pneumonia 2. Acute hypoxic respiratory failure 3. Rhabdomyolysis 4. History of hepatitis C and hepatitis B 5. Bipolar disorder 6. Tobacco dependence 7. Polysubstance abuse 8. Hypocalcemia - resolved. Calcium today corrected for hypoalbuminemia is 9.1. 9. Elevated troponin 10. Sinus tachycardia 11. Abnormal LFTs-improving 12. Possible history of endocarditis-tricuspid regurgitation on the echocardiogram. 13. History of asthma 14. Hypophosphatemia 15. Hyperglycemia with no history of diabetes mellitus, not on steroids, HGBA1C is normal, likely due to stress DC accuchecks and SSI since no BS > 165 Continue Zosyn and vancomycin and Tamiflu Continue tube feed-patient is at goal Wean Levophed as tolerated but keep mean arterial pressure greater than 65 Supplement phosphorus again IV and start a daily neutraphos supplement per the NG pCXR in the AM Code Visit Inpatient E&M: 22211 Subs Hosp L3
[2019-01-15 07:07] LABS: Eosinophil 5 % (0-5); Lymphocyte 18 % (19-41); Metamyelocyte 2 % (0-1); Monocyte 3 % (0-10); Neutrophil-Band 4 % (0-5); Neutrophil-Segmented 68 % (47-70); Total Cells Counted 100 (MANUAL DIFF)
[2019-01-15 07:08] LABS: Anisocytosis 1+; Hypochromasia 1+; Microcytosis 1+; Platelet Estimate ADEQUATE (ADEQ); Platelet Morphology LARGE; Polychromasia 1+
[2019-01-15 07:10] LABS: Absolute Lymphocyte Count 4.57 X10^3/ul (0.83-4.51); Absolute Neutrophil Count 18.3 X10^3/uL (2.0-7.7)
[2019-01-15 08:34] LABS: BNP,B-Type NATRIURETIC PEPTIDE 373.8 pg/mL (0-100)
[2019-01-15] MEDS: Aspirin 81 MG TAB.CHEW GT (09:11)
[2019-01-15] MEDS: QUEtiapine 25 MG Tablet 50 MG NG ×2 (09:11→21:49)
[2019-01-15] MEDS: Famotidine 20 MG Tablet GT ×2 (09:11→21:49)
[2019-01-15] MEDS: Senna/Docusate Sodium 1 Tablet 2 TABLET GT (09:11)
--- NOTE | 2019-01-15 09:12 | CM.UR ---
Participated in interdisciplinary rounds. Patient remains on vent. Discharge plan is TBD. Case management will continue to follow IP stay. Riky Lopez RN, CCM.
[2019-01-15] MEDS: Polyethylene Glycol 3350 17 GM PACKET GT (09:16)
[2019-01-15] MEDS: OSELTAMIVIR PHOSPHATE 6 MG/ML BOTTLE 75 MG GT ×2 (09:17→21:49)
[2019-01-15] MEDS: Chlorhexidine 15 ML PO ×2 (09:18→21:48)
[2019-01-15] MEDS: Na Biphos/Potassium Phosphate PACKET 2 PACKET NG ×2 (11:01→21:49)
[2019-01-15] MEDS: 0.9% NaCl Peripheral Flush Adult/Peds IV ×2 (14:28→14:30)
[2019-01-15] MEDS: Vital AF 1.2 Cal Liquid 1,000 ML 65 ML GT (18:23)
[2019-01-15 20:31] LABS: Bedside Glucose 133 mg/dL (70-110)
[2019-01-15] MEDS: Menthol/Lanolin/Calamine/Znox 113 GM Tube 1 APPLIC TOPICAL (21:49)
[2019-01-15] MEDS: Glycerin/Hypromellose/PEG400 15 ml Bottle 2 DRP EACH EYE (21:51)
[2019-01-15 23:26] LABS: Bedside Glucose 119 mg/dL (70-110)
[2019-01-16] VITALS (57 sets, daily range): BP systolic 89–130; BP diastolic 42–71; PULSE 95–117; RESP 18–29; TEMP 36.1–38.1; O2SAT 0–96
[2019-01-16] MEDS: fentaNYL drip 100 ML 2.5 MCG IV ×3 (00:43→21:09)
[2019-01-16] MEDS: Ipratropium/Albuterol Sulfate 3 ML AMPUL.NEB INHALATION ×6 (02:08→22:37)
[2019-01-16] MEDS: CHLORHEXIDINE GLUC 2% CLOTH 1 EACH TOWELETTE TOPICAL (03:55)
[2019-01-16] MEDS: Propofol 10MG/Ml 1,000 MG/100 ML Bottle 5.16 MG CONT INF ×2 (03:55→15:16)
[2019-01-16] MEDS: Acetaminophen 650 MG/20 ML UDC GT ×4 (05:37→23:02)
[2019-01-16] MEDS: Enoxaparin 40 MG/0.4 ML Syringe SC (05:37)
[2019-01-16 05:56] LABS: Bedside Glucose 124 mg/dL (70-110)
--- NOTE | 2019-01-16 06:03 | PN_ITS ---
Subjective: The patient was seen and examined at the bedside this morning. Events from the last 24 hours have been reviewed. Although the patient was noted to be febrile overnight, her overall fever curve appears to be improving. Her FiO2 requirement has been weaned to 45% as of this morning. The patient is currently documented to be overall net +12.3 L for the admission. The patient's Levophed requirement has been weaned and is currently at 2 mcg. The patient did fairly well this morning with her spontaneous awakening trial. However, she did event ually become agitated and tachypneic on her spontaneous breathing trial. Her sedation was subsequently restarted, but at half its previous rate. Objective: The patient's most recent lab work, culture data and imaging studies have all been personally reviewed. Surface echocardiogram revealed evidence of stage I diastolic dysfunction with an ejection fraction of 65%. Right ventricular systolic pressure was estimated to be 53 mmHg. Liver ultrasound revealed mild hepatomegaly along with a trace amount of pericholecystic fluid and sludge within the gallbladder lumen. Respiratory viral panel was positive for influenza A. Strep and urine Legionella antigens were both negative. Blood cultures have been unrevealing to date. Sputum culture was positive for MRSA. General: - - Remains intubated, sedated and mechanically ventilated. HEENT: Atraumatic, PERRLA, Normocephalic Oral: No Gingival or Mucosal Lesions/ Ulcerations, - - Endotracheal and OG tubes remain in place Neck: Supple, No Nodes, Trachea Midline Lungs: No rhonchi, No wheeze, No rales, Diminished Cardiovascular: Normal S1, Normal S2, Murmur, Tachycardic Abdomen: Bowel Sounds Present, Soft, Non Tender Extremities: No clubbing, No cyanosis, - - The patient is now diffusely edematous with both lower and upper extremities affected Skin: - - No significant change from previous Musculoskeletal: No Tenderness to Palpation of Joints or Extremities, No Muscle Wasting Lymphatic: No Cervical, Supraclavicular, or Inguinal Adenopathy Neurological: - - No focal neurological deficits. Vital Signs Temp Pulse Resp BP Pulse Ox 37.7 C H 108 H 28 H 114/63 93 01/16/19 04:00 01/16/19 05:05 01/16/19 05:05 01/16/19 04:00 01/16/19 05:54 Oxygen Delivery Method Mechanical Ventilator Weight: 211 lb 13.828 oz Body Mass Index (BMI) 32.7 Intake and Output for Last 24 Hours 01/14/19 01/15/19 01/16/19 23:59 23:59 23:59 Intake Total 2752 / 2752 4785 / 4785 1147 / 1147 Output Total 1750 / 1750 975 / 975 175 / 175 Balance 1002 / 1002 3810 / 3810 972 / 972 Labs (Last 48 Hours) 01/12/19 01/14/19 01/14/19 11:50 05:51 11:10 WBC RBC Hgb Hct MCV MCH MCHC RDW RDW Differential Plt Count MPV Neut % (Auto) Absolute Neuts (auto) Absolute Lymphs (auto) Total Counted Neutrophils % (Manual) Band Neutrophils % Lymphocytes % (Manual) Monocytes % (Manual) Eosinophils % (Manual) Metamyelocytes % Nucleated RBC % Diff Path Review Platelet Estimate Plt Morphology Comment Polychromasia Hypochromasia Anisocytosis Microcytosis Absolute Retic Sodium Potassium Chloride Carbon Dioxide Anion Gap BUN Creatinine Estim Creat Clear Calc Est GFR (MDRD) Af Amer Est GFR (MDRD) Non-Af BUN/Creatinine Ratio Glucose Calcium Phosphorus Magnesium B-Natriuretic Peptide Vancomycin Trough Hepatitis A IgM Ab Negative Hepatitis A Ab Total Negative Hep Bs Antigen Negative Hep B Core Total Ab Positive H Hep B Core IgM Ab Negative Hepatitis C Ab Confirm >11.0 H POC Glucose 153 H 156 H 01/14/19 01/14/19 01/14/19 17:30 17:34 23:44 WBC RBC Hgb Hct MCV MCH MCHC RDW RDW Differential Plt Count MPV Neut % (Auto) Absolute Neuts (auto) Absolute Lymphs (auto) Total Counted Neutrophils % (Manual) Band Neutrophils % Lymphocytes % (Manual) Monocytes % (Manual) Eosinophils % (Manual) Metamyelocytes % Nucleated RBC % Diff Path Review Platelet Estimate Plt Morphology Comment Polychromasia Hypochromasia Anisocytosis Microcytosis Absolute Retic Sodium Potassium Chloride Carbon Dioxide Anion Gap BUN Creatinine Estim Creat Clear Calc Est GFR (MDRD) Af Amer Est GFR (MDRD) Non-Af BUN/Creatinine Ratio Glucose Calcium Phosphorus Magnesium B-Natriuretic Peptide Vancomycin Trough 15.2 H Hepatitis A IgM Ab Hepatitis A Ab Total Hep Bs Antigen Hep B Core Total Ab Hep B Core IgM Ab Hepatitis C Ab Confirm POC Glucose 133 H 134 H 01/15/19 01/15/1901/15/19 06:17 06:30 06:30 WBC 25.4 H RBC 4.17 L Hgb 12.2 Hct 37.4 MCV 89.7 MCH 29.3 MCHC 32.6 RDW 14.7 H RDW Differential 47.7 H Plt Count 304 MPV 11.0 Neut % (Auto) Not Reportable Absolute Neuts (auto) 18.3 H Absolute Lymphs (auto) 4.57 H Total Counted 100 Neutrophils % (Manual) 68 Band Neutrophils % 4 Lymphocytes % (Manual) 18 L Monocytes % (Manual) 3 Eosinophils % (Manual) 5 Metamyelocytes % 2 H Nucleated RBC % 2.1 Diff Path Review May foll Platelet Estimate ADEQUATE Plt Morphology Comment LARGE Polychromasia 1+ Hypochromasia 1+ Anisocytosis 1+ Microcytosis 1+ Absolute Retic 0.54 Sodium 144 Potassium 3.8 Chloride 110 H Carbon Dioxide 27.0 Anion Gap 7 BUN 13 Creatinine 0.64 Estim Creat Clear Calc 106.95 Est GFR (MDRD) Af Amer 137 Est GFR (MDRD) Non-Af 113 BUN/Creatinine Ratio 20.5 H Glucose 153 H Calcium 7.7 L Phosphorus 1.8 L Magnesium 2.3 B-Natriuretic Peptide Vancomycin Trough Hepatitis A IgM Ab Hepatitis A Ab Total Hep Bs Antigen Hep B Core Total Ab Hep B Core IgM Ab Hepatitis C Ab Confirm POC Glucose 161 H 01/15/19 01/15/19 01/15/19 06:30 18:49 23:07 WBC RBC Hgb Hct MCV MCH MCHC RDW RDW Differential Plt Count MPV Neut % (Auto) Absolute Neuts (auto) Absolute Lymphs (auto) Total Counted Neutrophils % (Manual) Band Neutrophils % Lymphocytes % (Manual) Monocytes % (Manual) Eosinophils % (Manual) Metamyelocytes % Nucleated RBC % Diff Path Review Platelet Estimate Plt Morphology Comment Polychromasia Hypochromasia Anisocytosis Microcytosis Absolute Retic Sodium Potassium Chloride Carbon Dioxide Anion Gap BUN Creatinine Estim Creat Clear Calc Est GFR (MDRD) Af Amer Est GFR (MDRD) Non-Af BUN/Creatinine Ratio Glucose Calcium Phosphorus Magnesium B-Natriuretic Peptide 373.8 H Vancomycin Trough Hepatitis A IgM Ab Hepatitis A Ab Total Hep Bs Antigen Hep B Core Total Ab Hep B Core IgM Ab Hepatitis C Ab Confirm POC Glucose 133 H 119 H 01/16/19 05:44 WBC RBC Hgb Hct MCV MCH MCHC RDW RDW Differential Plt Count MPV Neut % (Auto) Absolute Neuts (auto) Absolute Lymphs (auto) Total Counted Neutrophils % (Manual) Band Neutrophils % Lymphocytes % (Manual) Monocytes % (Manual) Eosinophils % (Manual) Metamyelocytes % Nucleated RBC % Diff Path Review Platelet Estimate Plt Morphology Comment Polychromasia Hypochromasia Anisocytosis Microcytosis Absolute Retic Sodium Potassium Chloride Carbon Dioxide Anion Gap BUN Creatinine Estim Creat Clear Calc Est GFR (MDRD) Af Amer Est GFR (MDRD) Non-Af BUN/Creatinine Ratio Glucose Calcium Phosphorus Magnesium B-Natriuretic Peptide Vancomycin Trough Hepatitis A IgM Ab Hepatitis A Ab Total Hep Bs Antigen Hep B Core Total Ab Hep B Core IgM Ab Hepatitis C Ab Confirm POC Glucose 124 H Microbiology 01/15/19 15:30 Stool C. difficile DNA Amplification - Final 01/12/19 04:15 Sputum, Induced/Lukens Gram Stain - Final 01/12/19 04:15 Sputum, Induced/Lukens Respiratory Culture - Final Meth. resistant Staph. aureus Clinical Impression(s) from Imaging Studies Chest X-Ray 01/11/19 20:08 IMPRESSION: Endotracheal and nasogastric tubes appearing in adequate position. Bilateral pulmonary infiltrates left side more severely affected than right. Electronically Signed: Keegan Munoz MD at 21:57 EDT , Service support , Liver Ultrasound 01/12/19 05:55 IMPRESSION: Mild hepatomegaly. Trace amount of pericholecystic fluid and sludge within the gallbladder lumen. Electronically Signed: Ever See, at 16:11 EDT , Service support , Chest X-Ray 01/13/19 07:54 IMPRESSION: Lines and tubes as described. Bilateral infiltrates, increasing in the right lung base since previous study. Electronically Signed: Michael Hernandez MD at 17:20 EDT , Service support , KUB X-Ray 01/14/19 11:39 IMPRESSION: 1. Distal nasogastric tube is in the stomach. There is a possible kink at the level of the sidehole. 2. Unremarkable bowel gas pattern. 3. Persistent bibasilar pulmonary infiltrates. Electronically Signed: Amari Mayen MD at 12:54 EDT , Service support , KUB X-Ray 01/14/19 11:56 IMPRESSION: Distal orogastric tube is in the stomach, less kinked than on prior study. Electronically Signed: Amari Mayen MD at 13:49 EDT , Service support , KUB X-Ray 01/14/19 12:56 IMPRESSION: The tip of the orogastric tube is in the body of the stomach. Electronically Signed: Ever See, at 13:56 EDT , Service support , Medical Necessity - Tobacco Use Smoking Status: Current every day smoker - Unclear pack per day history. Tobacco Use: Cigarettes Assessment/Plan All Active Problems (Last Reviewed 12/13/18 @ 15:11 by Sangeeta Bailey) Acute respiratory failure with hypoxia (Acute) Pneumonia (Acute) Sepsis (Acute) Cardiac enzymes elevated (Acute) Dental abscess (Acute) Upper respiratory infection (Acute) RECOMMENDATIONS: 1. Continue to wean FiO2 to maintain an oxygen saturation at or above 90%. 2. Continue Levophed to maintain a mean arterial pressure at or above 65 mmHg. 3. Continue tube feeds. 4. Continue bronchodilators. 5. Continue fentanyl and propofol for sedation. 6. Continue appropriate ICU prophylaxis. 7. Continue Tamiflu and antibiotics per ID recommendations. IMPRESSIONS: 1. Acute hypoxemic respiratory failure secondary to influenza A and multifocal MRSA pneumonia The patient was intubated in the emergency department due to refractory agitation and hypoxemia. Not only does the patient have an influenza A infection, she has evidence of multifocal pneumonia with sputum that is positive for MRSA. The patient will remain on Tamiflu and antibiotics, under the discretion of infectious diseases. We will continue to wean her FiO2 as tolerated to maintain an oxygen saturation of 90%. Continue scheduled bronchodilators. Continue tube feeds and increase rate to goal. Strongly suspect the patient will require volume optimization with IV diuretics, once she has been able to be weaned from vasopressor support. 2. Septic shock secondary to influenza A with superimposed MRSA pneumonia Continue current supportive measures. The patient has been more than adequately volume resuscitated. Continue Levophed and wean as tolerated to maintain a mean arterial pressure at or above 65 mmHg. Continue antibiotics and Tamiflu per ID recommendations. 3. Toxic/metabolic encephalopathy Likely multifactorial in etiology with drug intoxication/overdose and pulmonary infectious process contributing. Continue current supportive measures with invasive mechanical ventilatory support. Continue propofol and fentanyl for sedation with a goal to maintain a RASS of -1 to 1. 4. Personal history of endocarditis/heart failure with preserved ejection fraction/tricuspid valve insufficiency/pulmonary hypertension Continue current supportive measures as noted above. Surface echocardiogram did reveal evidence of stage I diastolic dysfunction, along with moderate tricuspid valve insufficiency and a right ventricular pressure estimated to be 53 mmHg. The patient will likely require eventual diuresis, given her overall volume positive status. However, I would hold off on initiating diuretics until the patient has been weaned from Levophed. 5. History of polysubstance abuse/tobacco dependency/reported baseline asthma/bipolar disorder/GERD Complicates care, management, recovery and prognosis. Continue nicotine replacement therapy while admitted to the hospital. Physical therapy to work with patient, once medically stable. TIME: 38 minutes of critical care time, independent of procedures, was spent addressing the patient's acute hypoxemic respiratory failure, severe sepsis, influenza A infection, multifocal MRSA pneumonia, toxic/metabolic encephalopathy, review of all data and collaboration with the care team. ([id number]) Code Visit [id number]: [id number] Critical care first hour
[2019-01-16 06:58] LABS: Anion Gap 8 (5-15); BUN 16 mg/dL (7-18); BUN/Creat Ratio 23.6 RATIO (10-20); Calcium,Total 7.3 mg/dL (8.5-10.1); Chloride 111 mmol/L (98-107); Creatinine, Serum 0.68 mg/dL (0.55-1.02); EST Glomerular Filtration Rate 105 mL/min (>60); Est Glom Filt Rate - Afr Amer 127 mL/min (>60); Estimated Creatinine Clearance 100.66 ml/min; Glucose 157 mg/dL (74-106); Potassium 3.6 mmol/L (3.5-5.1); Sodium Level 145 mmol/L (136-145)
[2019-01-16 07:07] LABS: Hematocrit 34.6 % (37-47); Hemoglobin 11.1 g/dl (12.0-15.0); Mean Corp Hgb Conc 32.1 g/gl (32-36); Mean Corpuscular Hgb 28.8 pg (27.0-32.0); Mean Corpuscular Volume 89.9 fL (81-99); Mean Platelet Vol. 11.1 fl (6.2-12.0); Platelet Count 243 K/mm3 (150-450); RBC Distribution Width SD 48.4 fl (35.1-43.9); Red Blood Count 3.85 M/mm3 (4.2-5.4)
--- NOTE | 2019-01-16 07:09 | PCM.PROGNOTE ---
Patient Problems: Active and Suspected Problems (Last Reviewed 12/13/18 @ 15:11 by Sangeeta Bailey) Acute respiratory failure with hypoxia (Acute) Pneumonia (Acute) Sepsis (Acute) Cardiac enzymes elevated (Acute) Subjective: Patient is a 33-year-old female with a history of polysubstance abuse and bipolar disorder who was admitted to the hospital with acute respiratory failure secondary to influenza A, MRSA pneumonia and suspected aspiration. Day #6 antibiotics-vancomycin and Zosyn Day #5 Tamiflu Day #6 ventilator T-max for the past 24 hours has been 100.9 ?F. FiO2 has been weaned down to 45% and she is currently 92% saturated. Respiratory rate is in the high 20s. Fluid balance on 01/15/2019 was 3810. Fluid balance since admission is 12,322. All labs personally reviewed. White blood cell count today is 24.2. Hemoglobin is 11.1 (decrease likely due to hemodilution) and platelets remain within normal limits. BMP is unremarkable. Blood cultures have had no growth. She lasted 90 minutes on SBT today and was not agitated until the end. She was placed back on AC and sedation. Tolerating the TF. Had several BM's yesterday but this slowed down overnight. scant secretions from the ETT. Objective: - Physical Exam General: - - sedated. still somewhat diaphoretic HEENT: Atraumatic, Normocephalic, - - Pupils are equal, small and responsive to light Oral: Dry Mucosa Neck: Supple, No Nodes, Trachea Midline Lungs: Clear to auscultation, Diminished Cardiovascular: Regular Rhythm, Normal S1, Normal S2, Murmur - systolic MM 3/6 at the LLSB and the apex, No rub noted, No Gallop, Tachycardic still but, the rate has been coming down Abdomen: Soft, Non-Distended, Hypoactive Bowel Sounds, Obese, having BM's Extremities: No clubbing, No cyanosis,+ Edema, - - distal LE's are cool to the touch with no mottling Skin: No rashes, No breakdown Musculoskeletal: No Muscle Wasting Neurological: Cranial nerves II-XII grossly intact, Neuro grossly intact - Physical Exam Vital Signs Temp Pulse Resp BP Pulse Ox 100.5 F H 111 H 27 H 89/57 L 91 01/16/19 06:00 01/16/19 06:50 01/16/19 06:50 01/16/19 06:30 01/16/19 06:50 Oxygen Delivery Method Mechanical Ventilator Weight: 211 lb 13.828 oz Body Mass Index (BMI) 32.7 Intake and Output for Last 24 Hours 01/14/19 01/15/19 01/16/19 23:59 23:59 23:59 Intake Total 2752 / 2752 4785 / 4785 1147 / 1147 Output Total 1750 / 1750 975 / 975 175 / 175 Balance 1002 / 1002 3810 / 3810 972 / 972 Microbiology Past 72 Hours 01/15/19 15:30 C. difficile DNA Amplification - Final Stool 01/12/19 04:15 Gram Stain - Final Sputum, Induced/Lukens Respiratory Culture - Final Meth. resistant Staph. aureus Laboratory Tests Past 24 Hrs 01/15/19 01/15/19 01/16/19 06:30 06:30 06:35 WBC Pending RBC Pending Hgb Pending Hct Pending MCV Pending MCH Pending MCHC Pending RDW Pending RDW Differential Pending Plt Count Pending Neut % (Auto) Pending Absolute Neuts (auto) 18.3 H Pending Absolute Lymphs (auto) 4.57 H Total Counted 100 Pending Neutrophils % (Manual) 68 Band Neutrophils % 4 Lymphocytes % (Manual) 18 L Monocytes % (Manual) 3 Eosinophils % (Manual) 5 Metamyelocytes % 2 H Diff Path Review May foll Platelet Estimate ADEQUATE Plt Morphology Comment LARGE Polychromasia 1+ Hypochromasia 1+ Anisocytosis 1+ Microcytosis 1+ Sodium Potassium Chloride Carbon Dioxide Anion Gap BUN Creatinine Estim Creat Clear Calc Est GFR (MDRD) Af Amer Est GFR (MDRD) Non-Af BUN/Creatinine Ratio Glucose Calcium B-Natriuretic Peptide 373.8 H 01/16/19 06:35 WBC RBC Hgb Hct MCV MCH MCHC RDW RDW Differential Plt Count Neut % (Auto) Absolute Neuts (auto) Absolute Lymphs (auto) Total Counted Neutrophils % (Manual) Band Neutrophils % Lymphocytes % (Manual) Monocytes % (Manual) Eosinophils % (Manual) Metamyelocytes % Diff Path Review Platelet Estimate Plt Morphology Comment Polychromasia Hypochromasia Anisocytosis Microcytosis Sodium 145 Potassium 3.6 Chloride 111 H Carbon Dioxide 26.0 Anion Gap 8 BUN 16 Creatinine 0.68 Estim Creat Clear Calc 100.66 Est GFR (MDRD) Af Amer 127 Est GFR (MDRD) Non-Af 105 BUN/Creatinine Ratio 23.6 H Glucose 157 H Calcium 7.3 L B-Natriuretic Peptide POC Glucose 01/16/19 01/15/19 01/15/19 05:44 23:07 18:49 POC Glucose 124 H 119 H 133 H Medical Necessity - Tobacco Use Smoking Status: Current every day smoker - Unclear pack per day history. Tobacco Use: Cigarettes Assessment/Plan All Active Problems (Last Reviewed 12/13/18 @ 15:11 by Sangeeta Bailey) Acute respiratory failure with hypoxia (Acute) Pneumonia (Acute) Sepsis (Acute) Cardiac enzymes elevated (Acute) Dental abscess (Acute) Upper respiratory infection (Acute) Impressions 1. Septic shock requiring pressors due to multilobar pneumonia - suspected aspiration + Influenza A + MRSA pneumonia 2. Acute hypoxic respiratory failure 3. Rhabdomyolysis 4. History of hepatitis C and hepatitis B 5. Bipolar disorder 6. Tobacco dependence 7. Polysubstance abuse 8. Hypocalcemia - resolved. Calcium today corrected for hypoalbuminemia is 9.1. 9. Elevated troponin 10. Sinus tachycardia 11. Abnormal LFTs-improving 12. history of endocarditis-tricuspid regurgitation on the echocardiogram. She was in [place] when she had endocarditis....no valve repair or replacement was necessary 13. History of asthma 14. Hypophosphatemia 15. Hyperglycemia with no history of diabetes mellitus, not on steroids, HGBA1C is normal, likely due to stress Continue to wean the Levophed ....currently down to 2 mcg SBT again in the AM consider suboxone taper when she is extubated to get her through withdrawal continue seroquel 75 MG BID When she is able to maintain BP without pressors start Lasix Will need to follow up at the counselling center post DC and with Dr. Ely Scott lab in the AM Code Visit Inpatient E&M: [id number] Subs Hosp L3
[2019-01-16 07:10] LABS: Differential Indicated MANUAL DIFF; POSITIVE COUNT NO; POSITIVE DIFFERENTIAL NO; POSITIVE MORPHOLOGY YES
[2019-01-16 07:50] LABS: Eosinophil 6 % (0-5); Lymphocyte 12 % (19-41); Metamyelocyte 1 % (0-1); Myelocyte 2 (0-0); Neutrophil-Band 2 % (0-5); Neutrophil-Segmented 77 % (47-70); Nucleated Red Bld Cells,Manual 5 % (0-5); Total Cells Counted 100 (MANUAL DIFF)
[2019-01-16 07:52] LABS: Anisocytosis 2+; Platelet Morphology LARGE; Polychromasia RARE
[2019-01-16 07:53] LABS: Platelet Estimate ADEQUATE (ADEQ)
[2019-01-16] MEDS: Menthol/Lanolin/Calamine/Znox 113 GM Tube 1 APPLIC TOPICAL ×2 (09:10→23:03)
[2019-01-16] MEDS: Chlorhexidine 15 ML PO ×2 (09:10→23:03)
[2019-01-16] MEDS: Na Biphos/Potassium Phosphate PACKET 2 PACKET NG ×2 (09:15→23:01)
[2019-01-16] MEDS: OSELTAMIVIR PHOSPHATE 6 MG/ML BOTTLE 75 MG GT ×2 (09:16→23:02)
[2019-01-16] MEDS: QUEtiapine 25 MG Tablet 50 MG NG ×2 (09:25→23:02)
[2019-01-16] MEDS: Famotidine 20 MG Tablet GT ×2 (09:25→23:02)
[2019-01-16] MEDS: Aspirin 81 MG TAB.CHEW GT (09:25)
[2019-01-16 12:51] LABS: Bedside Glucose 118 mg/dL (70-110)
[2019-01-16] MEDS: Vital AF 1.2 Cal Liquid 1,000 ML 65 ML GT (14:03)
[2019-01-16 17:41] LABS: Bedside Glucose 107 mg/dL (70-110)
[2019-01-16] MEDS: Senna/Docusate Sodium 1 Tablet 2 TABLET GT (23:02)
[2019-01-17] VITALS (36 sets, daily range): BP systolic 91–115; BP diastolic 49–87; PULSE 93–108; RESP 12–42; TEMP 36.9–37.6; O2SAT 93–100
[2019-01-17 01:32] LABS: Absolute Lymphocyte Count 2.76 X10^3/ul (0.83-4.51); Absolute Neutrophil Count 18.2 X10^3/uL (2.0-7.7)
[2019-01-17] MEDS: Propofol 10MG/Ml 1,000 MG/100 ML Bottle 5.16 MG CONT INF (03:09)
[2019-01-17] MEDS: CHLORHEXIDINE GLUC 2% CLOTH 1 EACH TOWELETTE TOPICAL (03:09)
[2019-01-17 05:10] LABS: Anion Gap 6 (5-15); BUN 20 mg/dL (7-18); BUN/Creat Ratio 33.7 RATIO (10-20); Calcium,Total 7.5 mg/dL (8.5-10.1); Chloride 111 mmol/L (98-107); Creatinine, Serum 0.59 mg/dL (0.55-1.02); EST Glomerular Filtration Rate 123 mL/min (>60); Est Glom Filt Rate - Afr Amer 148 mL/min (>60); Estimated Creatinine Clearance 116.02 ml/min; Glucose 134 mg/dL (74-106); Magnesium 2.3 mg/dL (1.6-2.6); Potassium 3.4 mmol/L (3.5-5.1); Sodium Level 145 mmol/L (136-145)
[2019-01-17] MEDS: Enoxaparin 40 MG/0.4 ML Syringe SC (05:50)
[2019-01-17] MEDS: Acetaminophen 650 MG/20 ML UDC GT (05:50)
[2019-01-17] MEDS: Furosemide 40 MG/4 ML Vial IV (06:54)
[2019-01-17 07:15] LABS: Base Excess 1 mmol/L (-2 to +2); Bicarbonate 24.9 mmol/L (22-26); Blood Gas Specimen Type ART; FI02 45; Mode CPAP PS; O2 Delivery Device Vent; PEEP 5; PO2 67 mmHG (75-100); PS 5; SITE L Brachial; SO2 94 % (95-99); Time Given 708; Total Carbon Dioxide 26 mmol/L; pCO2 36.5 mmHg (35-45); pH 7.44 (7.35-7.45)
--- NOTE | 2019-01-17 09:20 | PCM.PN.INT ---
Subjective: Patient did well overnight. Patient was able to come off of pressor therapy at approximately 4 AM. Patient did have negative C. difficile overnight. Patient was able to have a spontaneous breathing trial and was extubated under my direct supervision without complication. Patient is currently on a Ventimask and reports some shortness of breath. Objective: Patient with good response to Lasix therapy with 1500 cc out so far. General: Alert, Cooperative, No apparent distress, - - Mild conversational dyspnea. Anasarca. Appears older than stated age. HEENT: Atraumatic, PERRLA, EOMI, Normocephalic, - - No scleral icterus or injection noted. Oral: Moist Mucosa, No Gingival or Mucosal Lesions/ Ulcerations Neck: Supple, No Nodes, JVD, Right Lungs: No rhonchi, No wheeze, Diminished, Rales, - - No dullness to percussion. Symmetric expansion. Cardiovascular: Normal S1, Normal S2, No murmurs, No rub noted, No Gallop, Tachycardic Abdomen: Bowel Sounds Present, Soft, Non Tender, Non-Distended, Obese Extremities: No clubbing, No cyanosis, Capillary Refill Less than 3 Seconds, Edema Skin: No rashes, No breakdown Musculoskeletal: No Tenderness to Palpation of Joints or Extremities Lymphatic: No Cervical, Supraclavicular, or Inguinal Adenopathy Neurological: Cranial nerves II-XII grossly intact, Neuro grossly intact, Motor Exam 5/5 strength throughout Psych/Mental Status: Appropriate, Flat Affect Vital Signs Temp Pulse Resp BP Pulse Ox 37.2 C 97 29 H 102/66 96 01/17/19 08:00 01/17/19 08:00 01/17/19 08:00 01/17/19 08:00 01/17/19 08:00 Oxygen Flow Rate (L/min) 12 Oxygen Delivery Method Non-Rebreather Weight: 95.8 kg Body Mass Index (BMI) 32.7 Intake and Output for Last 24 Hours 01/15/19 01/16/19 01/17/19 23:59 23:59 23:59 Intake Total 4785 / 4785 3900 / 3900 1082 / 1082 Output Total 975 / 975 675 / 675 150 / 150 Balance 3810 / 3810 3225 / 3225 932 / 932 Labs (Last 48 Hours) 01/15/19 01/15/19 01/16/19 18:49 23:07 05:44 WBC Corrected WBC RBC Hgb Hct MCV MCH MCHC RDW RDW Differential Plt Count MPV Neut % (Auto) Absolute Neuts (auto) Absolute Lymphs (auto) Total Counted Neutrophils % (Manual) Band Neutrophils % Lymphocytes % (Manual) Eosinophils % (Manual) Metamyelocytes % Myelocytes % Nucleated RBCs/100 WBC Diff Path Review Platelet Estimate Plt Morphology Comment Polychromasia Anisocytosis Specimen Type Sample Site pH Bicarbonate Actual POC Total CO2 Base Excess O2 Saturation O2 % ABG pCO2 ABG pO2 O2 Delivery Device Vent Mode POC PEEP POC Pressure Suppt Blood Gas Notified Whom Blood Gas Notified Time Sodium Potassium Chloride Carbon Dioxide Anion Gap BUN Creatinine Estim Creat Clear Calc Est GFR (MDRD) Af Amer Est GFR (MDRD) Non-Af BUN/Creatinine Ratio Glucose Calcium Phosphorus Magnesium POC Glucose 133 H 119 H 124 H 01/16/19 01/16/19 01/16/19 06:35 06:35 11:46 WBC SHORT [employer] Corrected WBC 23.0 H RBC 3.85 L Hgb 11.1 L Hct 34.6 L MCV 89.9 MCH 28.8 MCHC 32.1 RDW 15.0 H RDW Differential 48.4 H Plt Count 243 MPV 11.1 Neut % (Auto) Not Reportable Absolute Neuts (auto) 18.2 H Absolute Lymphs (auto) 2.76 Total Counted 100 Neutrophils % (Manual) 77 H Band Neutrophils % 2 Lymphocytes % (Manual) 12 L Eosinophils % (Manual) 6 H Metamyelocytes % 1 Myelocytes % 2 H Nucleated RBCs/100 WBC 5 Diff Path Review May foll Platelet Estimate ADEQUATE Plt Morphology Comment LARGE Polychromasia RARE Anisocytosis 2+ Specimen Type Sample Site pH Bicarbonate Actual POC Total CO2 Base Excess O2 Saturation O2 % ABG pCO2 ABG pO2 O2 Delivery Device Vent Mode POC PEEP POC Pressure Suppt Blood Gas Notified Whom Blood Gas Notified Time Sodium 145 Potassium 3.6 Chloride 111 H Carbon Dioxide 26.0 Anion Gap 8 BUN 16 Creatinine 0.68 Estim Creat Clear Calc 100.66 Est GFR (MDRD) Af Amer 127 Est GFR (MDRD) Non-Af 105 BUN/Creatinine Ratio 23.6 H Glucose 157 H Calcium 7.3 L Phosphorus Magnesium POC Glucose 118 H 03/17/19 03/18/19 03/18/19 17:26 04:30 07:09 WBC Corrected WBC RBC Hgb Hct MCV MCH MCHC RDW RDW Differential Plt Count MPV Neut % (Auto) Absolute Neuts (auto) Absolute Lymphs (auto) Total Counted Neutrophils % (Manual) Band Neutrophils % Lymphocytes % (Manual) Eosinophils % (Manual) Metamyelocytes % Myelocytes % Nucleated RBCs/100 WBC Diff Path Review Platelet Estimate Plt Morphology Comment Polychromasia Anisocytosis Specimen Type ART Sample Site L Brachial pH 7.44 Bicarbonate Actual 24.9 POC Total CO2 26 Base Excess 1 O2 Saturation 94 L O2 % 45 ABG pCO2 36.5 ABG pO2 67 L O2 Delivery Device Vent Vent Mode CPAP PS POC PEEP 5 POC Pressure Suppt 5 Blood Gas Notified Whom ICU MD Blood Gas Notified Time 708 Sodium 145 Potassium 3.4 L Chloride 111 H Carbon Dioxide 28.0 Anion Gap 6 BUN 20 H Creatinine 0.59 Estim Creat Clear Calc 116.02 Est GFR (MDRD) Af Amer 148 Est GFR (MDRD) Non-Af 123 BUN/Creatinine Ratio 33.7 H Glucose 134 H Calcium 7.5 L Phosphorus 3.0 Magnesium 2.3 POC Glucose 107 Microbiology 01/11/19 22:45 Blood Culture (Wb) - Femoral Artery Blood Culture - Final No growth in 5 days. 01/13/19 15:45 Blood Culture (Wb) - Pic Blood Culture - Preliminary No growth in 48 hours. 01/15/19 15:30 Stool C. difficile DNA Amplification - Final Medical Necessity - Tobacco Use Smoking Status: Current every day smoker - Unclear pack per day history. Tobacco Use: Cigarettes Assessment/Plan All Active Problems (Last Reviewed 12/13/18 @ 15:11 by Sangeeta Bailey) Acute respiratory failure with hypoxia (Acute) Pneumonia (Acute) Sepsis (Acute) Cardiac enzymes elevated (Acute) Dental abscess (Acute) Upper respiratory infection (Acute) RECOMMENDATIONS: 1. Continue to wean FiO2 to maintain an oxygen saturation at or above 90%. 2. Attempt diuresis as tolerated 3. Head side swallow evaluation 4. Continue bronchodilators. 5. Discontinue fentanyl and propofol for sedation. 6. Continue appropriate ICU prophylaxis. 7. Continue Tamiflu and antibiotics per ID recommendations. IMPRESSIONS: 1. Acute hypoxemic respiratory failure secondary to influenza A and multifocal MRSA pneumonia The patient was intubated in the emergency department due to refractory agitation and hypoxemia. Not only does the patient have an influenza A infection, she has evidence of multifocal pneumonia with sputum that is positive for MRSA. The patient will remain on Tamiflu and antibiotics, under the discretion of infectious diseases. We will continue to wean her FiO2 as tolerated to maintain an oxygen saturation of 90%. Continue scheduled bronchodilators. Patient was successfully extubated, but still appears to have significant volume on board. We will continue with diuresis as tolerated. 2. Septic shock secondary to influenza A with superimposed MRSA pneumonia Off of pressor therapy. Continue current supportive measures. The patient has been more than adequately volume resuscitated. Continue antibiotics and Tamiflu per ID recommendations. 3. Toxic/metabolic encephalopathy Likely multifactorial in etiology with drug intoxication/overdose and pulmonary infectious process contributing. Continue current supportive measures with invasive mechanical ventilatory support. Discontinue propofol and fentanyl 4. Personal history of endocarditis/heart failure with preserved ejection fraction/tricuspid valve insufficiency/pulmonary hypertension Continue current supportive measures as noted above. Surface echocardiogram did reveal evidence of stage I diastolic dysfunction, along with moderate tricuspid valve insufficiency and a right ventricular pressure estimated to be 53 mmHg. Diuretics have been initiated. Echocardiogram May need reevaluation following discharge 5. History of polysubstance abuse/tobacco dependency/reported baseline asthma/bipolar disorder/GERD Complicates care, management, recovery and prognosis. Continue nicotine replacement therapy while admitted to the hospital. PT/OT to work with patient. TIME: 35 minutes of critical care time was spent addressing the patient's acute hypoxemic respiratory failure, septic shock, influenza A infection, multifocal MRSA pneumonia, toxic/metabolic encephalopathy, review of all data and collaboration with the care team. (7:15 AM to 8:15 AM) Code Visit [id number]: [id number] Critical care first hour
[2019-01-17] MEDS: Chlorhexidine 15 ML PO (10:10)
[2019-01-17] MEDS: Menthol/Lanolin/Calamine/Znox 113 GM Tube 1 APPLIC TOPICAL ×2 (10:11→21:39)
--- NOTE | 2019-01-17 10:21 | PCM.PN.ID ---
Patient Problems: Active and Suspected Problems (Last Reviewed 12/13/18 @ 15:11 by Sangeeta Bailey) Acute respiratory failure with hypoxia (Acute) Pneumonia (Acute) Sepsis (Acute) Cardiac enzymes elevated (Acute) Subjective: Extubated this AM. Some sore throat, wants to drink water. No fever. Some SOB. - Physical Exam General: Cooperative, No apparent distress Lungs: Diminished, Wheezes Cardiovascular: Regular rate, Regular Rhythm, Murmur Abdomen: Soft, Non Tender, Non-Distended Extremities: Edema Skin: No rashes Vital Signs Temp Pulse Resp BP Pulse Ox 99 F 97 29 H 102/66 96 01/17/19 08:00 01/17/19 08:00 01/17/19 08:00 01/17/19 08:00 01/17/19 08:00 Oxygen Flow Rate (L/min) 12 Oxygen Delivery Method Non-Rebreather Weight: 95.8 kg Body Mass Index (BMI) 32.7 Intake and Output for Last 24 Hours 01/15/19 01/16/19 01/17/19 23:59 23:59 23:59 Intake Total 4785 / 4785 3900 / 3900 1082 / 1082 Output Total 975 / 975 675 / 675 150 / 150 Balance 3810 / 3810 3225 / 3225 932 / 932 Microbiology Past 72 Hours 01/11/19 22:45 Blood Culture - Final Blood Culture (Wb) - Femoral Artery No growth in 5 days. 01/13/19 15:45 Blood Culture - Preliminary Blood Culture (Wb) - Pic No growth in 48 hours. 01/15/19 15:30 C. difficile DNA Amplification - Final Stool 01/12/19 04:15 Gram Stain - Final Sputum, Induced/Lukens Respiratory Culture - Final Meth. resistant Staph. aureus Laboratory Tests Past 24 Hrs 01/16/19 01/17/19 01/17/19 06:35 04:30 07:09 Absolute Neuts (auto) 18.2 H Absolute Lymphs (auto) 2.76 Specimen Type ART Sample Site L Brachial pH 7.44 Bicarbonate Actual 24.9 POC Total CO2 26 Base Excess 1 O2 Saturation 94 L O2 % 45 ABG pCO2 36.5 ABG pO2 67 L O2 Delivery Device Vent Vent Mode CPAP PS POC PEEP 5 POC Pressure Suppt 5 Blood Gas Notified Whom ICU Blood Gas Notified Time 708 Sodium 145 Potassium 3.4 L Chloride 111 H Carbon Dioxide 28.0 Anion Gap 6 BUN 20 H Creatinine 0.59 Estim Creat Clear Calc 116.02 Est GFR (MDRD) Af Amer 148 Est GFR (MDRD) Non-Af 123 BUN/Creatinine Ratio 33.7 H Glucose 134 H Calcium 7.5 L Phosphorus 3.0 Magnesium 2.3 Vancomycin Trough 01/17/19 10:00 Absolute Neuts (auto) Absolute Lymphs (auto) Specimen Type Sample Site pH Bicarbonate Actual POC Total CO2 Base Excess O2 Saturation O2 % ABG pCO2 ABG pO2 O2 Delivery Device Vent Mode POC PEEP POC Pressure Suppt Blood Gas Notified Whom Blood Gas Notified Time Sodium Potassium Chloride Carbon Dioxide Anion Gap BUN Creatinine Estim Creat Clear Calc Est GFR (MDRD) Af Amer Est GFR (MDRD) Non-Af BUN/Creatinine Ratio Glucose Calcium Phosphorus Magnesium Vancomycin Trough Pending POC Glucose 01/16/19 01/16/19 17:26 11:46 POC Glucose 107 118 H Medical Necessity - Tobacco Use Smoking Status: Current every day smoker - Unclear pack per day history. Tobacco Use: Cigarettes Route of nutrition/ use of supplements: [] Nutritional Intake: [] IV Site: [] Khalil Catheter: [] - Assessment/Plan Antibiotics: [] Assessment/Plan: [] Active and Suspected Problems (Last Reviewed 12/13/18 @ 15:11 by Sangeeta Bailey) Acute respiratory failure with hypoxia (Acute) Pneumonia (Acute) Sepsis (Acute) Cardiac enzymes elevated (Acute) septic shock with flu, MRSA pneumonia, and suspected aspiration pneumonia in pt with polysubstance abuse, hep C, and h/o endocarditis - Bcx neg so far. Echo showed no veg. Now extubated. Cont vanc. Completed 5 days of tamiflu last night. Will d/c tamiflu and stop zosyn. 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 HIV neg. LFTs with some transaminitis, improving. Will follow
--- NOTE | 2019-01-17 10:39 | PCM.PN.HOSP ---
Patient Problems: Active and Suspected Problems (Last Reviewed 12/13/18 @ 15:11 by Sangeeta Bailey) Acute respiratory failure with hypoxia (Acute) Pneumonia (Acute) Sepsis (Acute) Cardiac enzymes elevated (Acute) Subjective: Extubated this AM. Breathing OK. Vitals/I&O's: Vital Signs Temp Pulse Resp BP Pulse Ox 37.2 C 97 29 H 102/66 96 01/17/19 08:00 01/17/19 08:00 01/17/19 08:00 01/17/19 08:00 01/17/19 08:00 Oxygen Flow Rate (L/min) 12 Oxygen Delivery Method Non-Rebreather Weight: 95.8 kg Body Mass Index (BMI) 32.7 Intake and Output for Last 24 Hours 01/15/19 01/16/19 01/17/19 23:59 23:59 23:59 Intake Total 4785 / 4785 3900 / 3900 1082 / 1082 Output Total 975 / 975 675 / 675 150 / 150 Balance 3810 / 3810 3225 / 3225 932 / 932 General: Alert, No apparent distress, - - appears much older than stated age. Hypophonic voice. HEENT: Atraumatic, Normocephalic Oral: Moist Mucosa, No Gingival or Mucosal Lesions/ Ulcerations Neck: No Nodes, Thyroid Normal Size and Texture Lungs: Diminished, - - fine crackles bilaterally. Cardiovascular: Regular rate, Regular Rhythm, Normal S1, Normal S2, No murmurs Abdomen: Bowel Sounds Present, Soft, Non Tender, Non-Distended, No Hepato-splenomegaly Extremities: No edema, No Calf Tenderness Skin: No rashes, No breakdown Psych/Mental Status: Appropriate, Flat Affect Microbiology Past 72 Hours 01/11/19 22:45 Blood Culture (Wb) - Femoral Artery Blood Culture - Final No growth in 5 days. 01/13/19 15:45 Blood Culture (Wb) - Pic Blood Culture - Preliminary No growth in 48 hours. 01/15/19 15:30 Stool C. difficile DNA Amplification - Final 01/12/19 04:15 Sputum, Induced/Lukens Gram Stain - Final 01/12/19 04:15 Sputum, Induced/Lukens Respiratory Culture - Final Meth. resistant Staph. aureus Laboratory Results 01/16/19 06:35: Absolute Neuts (auto) 18.2 H, Absolute Lymphs (auto) 2.76 01/16/19 11:46: POC Glucose 118 H 01/16/19 17:26: POC Glucose 107 01/17/19 04:30: Sodium 145, Potassium 3.4 L, Chloride 111 H, Carbon Dioxide 28.0, Anion Gap 6, BUN 20 H, Creatinine 0.59, Estim Creat Clear Calc 116.02, Est GFR (MDRD) Af Amer 148, Est GFR (MDRD) Non-Af 123, BUN/Creatinine Ratio 33.7 H, Glucose 134 H, Calcium 7.5 L, Phosphorus 3.0, Magnesium 2.3 01/17/19 07:09: Specimen Type ART, Sample Site L Brachial, pH 7.44, Bicarbonate Actual 24.9, POC Total CO2 26, Base Excess 1, O2 Saturation 94 L, O2 % 45, ABG pCO2 36.5, ABG pO2 67 L, O2 Delivery Device Vent, Vent Mode CPAP PS, POC PEEP 5, POC Pressure Suppt 5, Blood Gas Notified Whom ICU MD, Blood Gas Notified Time 708 01/17/19 10:00: Vancomycin Trough Pending Current Medications Acetaminophen (Tylenol Liquid) 650 mg GT Q6 [facility] Last Admin: 01/17/19 05:50 Dose: 650 mg Albuterol Sulfate (Ventolin Aerosols) 2.5 mg INHALATION Q2H PRN PRN PRN Reason: SHORTNESS OF BREATH Aspirin (Aspirin, Baby) 81 mg GT DAILY@0800 [facility] Last Admin: 01/17/19 10:10 Dose: Not Given Calamine/Phenol (Calmoseptine Ointment) 1 applic TOPICAL BID [facility]; Protocol Last Admin: 01/17/19 10:11 Dose: 1 applicatio Chlorhexidine Gluconate () 15 ml PO BID [facility] Last Admin: 01/17/19 10:10 Dose: 15 ml Chlorhexidine Gluconate () 1 each TOPICAL DAILY [facility] Last Admin: 01/17/19 03:09 Dose: 1 each Enoxaparin Sodium (Lovenox) 40 mg SC DAILY@0600 [facility] Last Admin: 01/17/19 05:50 Dose: 40 mg Famotidine (Pepcid) 20 mg GT BID [facility] Last Admin: 01/17/19 10:13 Dose: Not Given Hydralazine HCl (Apresoline Iv) 10 mg IV Q4H PRN PRN PRN Reason: SBP > 160 Sodium Chloride () 250 mls @ 15 mls/hr IV .[id number] PRN PRN Reason: SALINE FLUSH Fentanyl () 100 mls @ 2.5 mls/hr IV .Q40H [facility] Last Admin: 01/16/19 21:09 Dose: 2.5 mls/hr Vancomycin IV Pharmacy to Dose (1 ea/ Sodium Chloride) 500 mls @ 250 mls/hr IV PRN PRN; Protocol PRN Reason: Rx to Dose Enteral Nutritional Formula (Vital Af 1.2 Lonny Liquid) 1,000 mls @ 65 mls/hr GT .[id number] [facility] Last Admin: 01/16/19 14:03 Dose: 65 mls/hr Norepinephrine Bitartrate 8 mg (/ Dextrose) 258 mls @ 9.68 mls/hr IV .[id number] [facility] Last Admin: 01/16/19 16:59 Dose: Not Given Vancomycin HCl 1,000 mg/ (Sodium Chloride) 200 mls @ 200 mls/hr IV Q8H [facility] Last Admin: 01/17/19 10:13 Dose: 200 mls/hr Propofol (Diprivan) 1,000 mg in 100 mls @ 5.16 mls/hr CONT INF .Q12H [facility] Last Admin: 01/17/19 03:09 Dose: 5.16 mls/hr Potassium Chloride 40 meq/ (Sodium Chloride) 120 mls @ 100 mls/hr IV BOLUS X1 ONE Stop: 01/17/19 11:39 Magnesium Hydroxide (Milk Of Magnesia) 30 ml GT DAILY PRN PRN PRN Reason: Constipation Nicotine (Nicoderm Cq (Pbkc)) 14 mg TRANSDERM. DAILY [facility] Last Admin: 01/17/19 10:12 Dose: 14 mg Ondansetron HCl (Zofran) 4 mg IV Q8H PRN PRN PRN Reason: NAUSEA/VOMITING Polyethylene Glycol (Miralax) 17 gm GT BID [facility] Last Admin: 01/17/19 10:11 Dose: Not Given Potassium Phos/Sodium Phos (Neutra-Phos Packet) 2 packet NG BID [facility] Last Admin: 01/17/19 10:12 Dose: Not Given Quetiapine Fumarate (Seroquel) 50 mg NG BID [facility] Last Admin: 01/17/19 10:13 Dose: Not Given Senna/Docusate Sodium (Senokot-S, Kaylee-Colace) 2 tablet GT BID [facility] Last Admin: 01/17/19 10:13 Dose: Not Given Sodium Chloride () 5 - 15 ml IV UD PRN PRN Reason: SALINE FLUSH Last Admin: 01/15/19 14:30 Dose: 10 ml Medical Necessity - Tobacco Use Smoking Status: Current every day smoker - Unclear pack per day history. Tobacco Use: Cigarettes Assessment/Plan All Active Problems (Last Reviewed 12/13/18 @ 15:11 by Sangeeta Bailey) Acute respiratory failure with hypoxia (Acute) Pneumonia (Acute) Sepsis (Acute) Cardiac enzymes elevated (Acute) Dental abscess (Acute) Upper respiratory infection (Acute) 1. Acute hypoxic respiratory failure: POA. 2/2 PNA, influenza, poly substance abuse, +/- ALI. extubated today. Improving. Wean oxygen as tolerated. Pulmonary toilet. Received a 1 time dose of lasix in case this is CHF. 2. MRSA pneumonia: on Vancomycin. ? Aspiration from OD? Pulm toilet. ID following. 3. Influenza A: completed Tamiflu. 4. Polysubstance abuse: Drug screen positive for Opiates, Amphetamines, methamphetamines. Hold off on withdrawal treatment at this time. 5. Septic shock: off pressors currently. 2/2 Pneumonia and influenza. 6. Toxic and metabolic encephalopathy: likely combination of Overdose as well as underlying infection. 7. DVT proph: LMWH. 8. Disposition: watch in ICU today. If dose well, can be deescalated to PCU v MS 01/18. Code Visit Inpatient E&M: [id number] Subs Hosp L2
[2019-01-17 10:45] LABS: Vancomycin, Trough Level 15.3 ug/mL (5.0-15.0)
--- NOTE | 2019-01-17 10:49 | PN_ITS ---
Patient Problems: Active and Suspected Problems (Last Reviewed 12/13/18 @ 15:11 by Sangeeta Bailey) Acute respiratory failure with hypoxia (Acute) Pneumonia (Acute) Sepsis (Acute) Cardiac enzymes elevated (Acute) Subjective: Extubated this AM. Breathing OK. Vitals/I&O's: Vital Signs Temp Pulse Resp BP Pulse Ox 37.2 C 97 29 H 102/66 96 01/17/19 08:00 01/17/19 08:00 01/17/19 08:00 01/17/19 08:00 01/17/19 08:00 Oxygen Flow Rate (L/min) 12 Oxygen Delivery Method Non-Rebreather Weight: 95.8 kg Body Mass Index (BMI) 32.7 Intake and Output for Last 24 Hours 01/15/19 01/16/19 01/17/19 23:59 23:59 23:59 Intake Total 4785 / 4785 3900 / 3900 1082 / 1082 Output Total 975 / 975 675 / 675 150 / 150 Balance 3810 / 3810 3225 / 3225 932 / 932 General: Alert, No apparent distress, - - appears much older than stated age. Hypophonic voice. HEENT: Atraumatic, Normocephalic Oral: Moist Mucosa, No Gingival or Mucosal Lesions/ Ulcerations Neck: No Nodes, Thyroid Normal Size and Texture Lungs: Diminished, - - fine crackles bilaterally. Cardiovascular: Regular rate, Regular Rhythm, Normal S1, Normal S2, No murmurs Abdomen: Bowel Sounds Present, Soft, Non Tender, Non-Distended, No Hepato- splenomegaly Extremities: No edema, No Calf Tenderness Skin: No rashes, No breakdown Psych/Mental Status: Appropriate, Flat Affect Microbiology Past 72 Hours 01/11/19 22:45 Blood Culture (Wb) - Femoral Artery Blood Culture - Final No growth in 5 days. 01/13/19 15:45 Blood Culture (Wb) - Pic Blood Culture - Preliminary No growth in 48 hours. 01/15/19 15:30 Stool C. difficile DNA Amplification - Final 01/12/19 04:15 Sputum, Induced/Lukens Gram Stain - Final 01/12/19 04:15 Sputum, Induced/Lukens Respiratory Culture - Final Meth. resistant Staph. aureus Laboratory Results 01/16/19 06:35: Absolute Neuts (auto) 18.2 H, Absolute Lymphs (auto) 2.76 01/16/19 11:46: POC Glucose 118 H 01/16/19 17:26: POC Glucose 107 01/17/19 04:30: Sodium 145, Potassium 3.4 L, Chloride 111 H, Carbon Dioxide 28.0, Anion Gap 6, BUN 20 H, Creatinine 0.59, Estim Creat Clear Calc 116.02, Est GFR (MDRD) Af Amer 148, Est GFR (MDRD) Non-Af 123, BUN/Creatinine Ratio 33.7 H, Glucose 134 H, Calcium 7.5 L, Phosphorus 3.0, Magnesium 2.3 01/17/19 07:09: Specimen Type ART, Sample Site L Brachial, pH 7.44, Bicarbonate Actual 24.9, POC Total CO2 26, Base Excess 1, O2 Saturation 94 L, O2 % 45, ABG pCO2 36.5, ABG pO2 67 L, O2 Delivery Device Vent, Vent Mode CPAP PS, POC PEEP 5, POC Pressure Suppt 5, Blood Gas Notified Whom ICU MD, Blood Gas Notified Time 708 01/17/19 10:00: Vancomycin Trough Pending Current Medications Acetaminophen (Tylenol Liquid) 650 mg GT Q6 [facility] Last Admin: 01/17/19 05:50 Dose: 650 mg Albuterol Sulfate (Ventolin Aerosols) 2.5 mg INHALATION Q2H PRN PRN PRN Reason: SHORTNESS OF BREATH Aspirin (Aspirin, Baby) 81 mg GT DAILY@0800 [facility] Last Admin: 01/17/19 10:10 Dose: Not Given Calamine/Phenol (Calmoseptine Ointment) 1 applic TOPICAL BID [facility]; Protocol Last Admin: 01/17/19 10:11 Dose: 1 applicatio Chlorhexidine Gluconate () 15 ml PO BID [facility] Last Admin: 01/17/19 10:10 Dose: 15 ml Chlorhexidine Gluconate () 1 each TOPICAL DAILY [facility] Last Admin: 01/17/19 03:09 Dose: 1 each Enoxaparin Sodium (Lovenox) 40 mg SC DAILY@0600 [facility] Last Admin: 01/17/19 05:50 Dose: 40 mg Famotidine (Pepcid) 20 mg GT BID [facility] Last Admin: 01/17/19 10:13 Dose: Not Given Hydralazine HCl (Apresoline Iv) 10 mg IV Q4H PRN PRN PRN Reason: SBP > 160 Sodium Chloride () 250 mls @ 15 mls/hr IV .[id number] PRN PRN Reason: SALINE FLUSH Fentanyl () 100 mls @ 2.5 mls/hr IV .Q40H [facility] Last Admin: 01/16/19 21:09 Dose: 2.5 mls/hr Vancomycin IV Pharmacy to Dose (1 ea/ Sodium Chloride) 500 mls @ 250 mls/hr IV PRN PRN; Protocol PRN Reason: Rx to Dose Enteral Nutritional Formula (Vital Af 1.2 Lonny Liquid) 1,000 mls @ 65 mls/hr GT .[id number] [facility] Last Admin: 01/16/19 14:03 Dose: 65 mls/hr Norepinephrine Bitartrate 8 mg (/ Dextrose) 258 mls @ 9.68 mls/hr IV .[id number] [facility] Last Admin: 01/16/19 16:59 Dose: Not Given Vancomycin HCl 1,000 mg/ (Sodium Chloride) 200 mls @ 200 mls/hr IV Q8H [facility] Last Admin: 01/17/19 10:13 Dose: 200 mls/hr Propofol (Diprivan) 1,000 mg in 100 mls @ 5.16 mls/hr CONT INF .Q12H [facility] Last Admin: 01/17/19 03:09 Dose: 5.16 mls/hr Potassium Chloride 40 meq/ (Sodium Chloride) 120 mls @ 100 mls/hr IV BOLUS X1 ONE Stop: 01/17/19 11:39 Magnesium Hydroxide (Milk Of Magnesia) 30 ml GT DAILY PRN PRN PRN Reason: Constipation Nicotine (Nicoderm Cq (Pbkc)) 14 mg TRANSDERM. DAILY [facility] Last Admin: 01/17/19 10:12 Dose: 14 mg Ondansetron HCl (Zofran) 4 mg IV Q8H PRN PRN PRN Reason: NAUSEA/VOMITING Polyethylene Glycol (Miralax) 17 gm GT BID [facility] Last Admin: 01/17/19 10:11 Dose: Not Given Potassium Phos/Sodium Phos (Neutra-Phos Packet) 2 packet NG BID [facility] Last Admin: 01/17/19 10:12 Dose: Not Given Quetiapine Fumarate (Seroquel) 50 mg NG BID [facility] Last Admin: 01/17/19 10:13 Dose: Not Given Senna/Docusate Sodium (Senokot-S, Kaylee-Colace) 2 tablet GT BID [facility] Last Admin: 01/17/19 10:13 Dose: Not Given Sodium Chloride () 5 - 15 ml IV UD PRN PRN Reason: SALINE FLUSH Last Admin: 01/15/19 14:30 Dose: 10 ml Medical Necessity - Tobacco Use Smoking Status: Current every day smoker - Unclear pack per day history. Tobacco Use: Cigarettes Assessment/Plan All Active Problems (Last Reviewed 12/13/18 @ 15:11 by Sangeeta Bailey) Acute respiratory failure with hypoxia (Acute) Pneumonia (Acute) Sepsis (Acute) Cardiac enzymes elevated (Acute) Dental abscess (Acute) Upper respiratory infection (Acute) 1. Acute hypoxic respiratory failure: POA. 2/2 PNA, influenza, poly substance abuse, +/- ALI. extubated today. Improving. Wean oxygen as tolerated. Pulmonary toilet. Received a 1 time dose of lasix in case this is CHF. 2. MRSA pneumonia: on Vancomycin. ? Aspiration from OD? Pulm toilet. ID following. 3. Influenza A: completed Tamiflu. 4. Polysubstance abuse: Drug screen positive for Opiates, Amphetamines, methamphetamines. Hold off on withdrawal treatment at this time. 5. Septic shock: off pressors currently. 2/2 Pneumonia and influenza. 6. Toxic and metabolic encephalopathy: likely combination of Overdose as well as underlying infection. 7. DVT proph: LMWH. 8. Disposition: watch in ICU today. If dose well, can be deescalated to PCU v MS 01/18. Code Visit Inpatient E&M: 96066 Subs Hosp L2
--- NOTE | 2019-01-17 10:49 | NURSING ---
wound photo: right ear
--- NOTE | 2019-01-17 10:51 | NURSING ---
wound photo: back
--- NOTE | 2019-01-17 11:03 | NURSING ---
Was asked to see patient for worsening skin issues to the back. pt was admitted on 01/11/19 after they were asked to do a well check on her since no one had seen pt for a few days. police found her in her home. when patient was brought to the ED, patient was flailing and needed to be restrained and was later intubated. Pt was diagnoses also with rhabdomyolysis. patient may have been laying at home for days. pt does have some deep tissue injury to the right ear and some ecchymosis and a few superficial skin abrasions to the upper back. no drainage noted. 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 do not want to place tape to skin. no signs of infection noted. will monitor as needed. see wound photos.
--- NOTE | 2019-01-17 11:45 | CASEMGMT ---
Addendum entered by Joslyn Lucas 01/17/19 14:09: Pt's mother Tonja and step dad Juan([phone]) are here visiting pt, as is Trish Brady who volunteers at [facility]. SW spoke w/them in the hallway in regard to pt. Trish states that pt had been at [facility] until three days prior to coming here, she was discharged from [facility] and went to [facility]. Trish thinks that pt would benefit from returning to [facility] and is hopeful they would take her again. Pt's step dad informed SW that pt's P.O.(hospital chief executive officer) said pt would have a case planner here who would help w/her case. SW asked for clarification, explained SW would not be speaking w/PO unless pt gave permission, SW explained SW can provide a letter to pt to give to the P.O. stating when pt was in the hospital. If the P.O. wanted additional information, pt would need to give permission and she is not able to do this at this time. Upon further discussion, it seems the P.O. meant not to assist w/pt's legal case, but rather with getting her in somewhere for rehab. The P.O. told pt's stepfather that she has to go somewhere for rehab. SW explained that this is the pt's choice, even if the alternative is [facility], it is still pt's choice and pt needs to be agreeable. Pt's mother and stepfather seem to understand this. SW explained that when pt is able, SW will be following up w/pt to see what she may need. Pt's mother asked about pt getting her bipolar medications wherever she goes, she is not certain what pt was taking however. Pt's parents explain that w/pt going from place to place([facility] in and out of rehab), they are not certain she has still been on her medication. SW explained we can speak w/the pt about this, explained that SW cannot say whether or not pt will get the medication she was on as we don't yet know where pt will go at discharge. SW will continue to follow, will see pt once pt is able to speak w/SW. IAIN Fink, GEOSPATIAL INFORMATION SCIENTIST Original Note: SW participated in ICU rounds. Pt was extubated this morning, however is not able to have a conversation w/SW yet, still confused. SW will follow up w/pt when appropriate. IAIN Fink, GEOSPATIAL INFORMATION SCIENTIST
[2019-01-17 11:57] LABS: Pathologist Review Reviewed
[2019-01-17 12:02] LABS: Pathologist Review Reviewed
--- NOTE | 2019-01-17 12:03 | NURSING ---
coughing spurts resp 30-[address] blackman updated per cps odrers recieved
[2019-01-17 13:55] LABS: Anion Gap 1 (5-15); BUN 15 mg/dL (7-18); BUN/Creat Ratio 27.2 RATIO (10-20); Calcium,Total 7.5 mg/dL (8.5-10.1); Chloride 112 mmol/L (98-107); Creatinine, Serum 0.55 mg/dL (0.55-1.02); EST Glomerular Filtration Rate 133 mL/min (>60); Est Glom Filt Rate - Afr Amer 161 mL/min (>60); Estimated Creatinine Clearance 124.46 ml/min; Glucose 96 mg/dL (74-106); Potassium 6.2 mmol/L (3.5-5.1); Sodium Level 141 mmol/L (136-145)
[2019-01-17] MEDS: Furosemide 20 MG/2 ML VIAL IV (15:09)
[2019-01-17 15:13] LABS: Potassium 4.3 mmol/L (3.5-5.1)
[2019-01-18] VITALS (21 sets, daily range): BP systolic 90–116; BP diastolic 51–69; PULSE 86–95; RESP 16–37; TEMP 36.6–37.1; O2SAT 90–98
[2019-01-18] MEDS: 0.9% NaCl IVPB Med Flush (250 mL) 15 ML IV (02:10)
[2019-01-18] MEDS: 0.9% NaCl Peripheral Flush Adult/Peds IV (04:17)
[2019-01-18 04:46] LABS: Anion Gap 8 (5-15); BUN 17 mg/dL (7-18); BUN/Creat Ratio 38.5 RATIO (10-20); Calcium,Total 8.1 mg/dL (8.5-10.1); Chloride 108 mmol/L (98-107); Creatinine, Serum 0.44 mg/dL (0.55-1.02); EST Glomerular Filtration Rate 172 mL/min (>60); Est Glom Filt Rate - Afr Amer 208 mL/min (>60); Estimated Creatinine Clearance 155.57 ml/min; Glucose 85 mg/dL (74-106); Potassium 3.4 mmol/L (3.5-5.1); Sodium Level 145 mmol/L (136-145)
[2019-01-18 04:58] LABS: Differential Indicated MANUAL DIFF; Hematocrit 34.3 % (37-47); Hemoglobin 10.7 g/dl (12.0-15.0); Mean Corp Hgb Conc 31.2 g/gl (32-36); Mean Corpuscular Hgb 28.8 pg (27.0-32.0); Mean Corpuscular Volume 92.5 fL (81-99); Mean Platelet Vol. 10.8 fl (6.2-12.0); POSITIVE COUNT YES; POSITIVE DIFFERENTIAL NO; POSITIVE MORPHOLOGY YES; Platelet Count 261 K/mm3 (150-450); RBC Distribution Width CV 15.3 % (11.6-14.6); RBC Distribution Width SD 49.8 fl (35.1-43.9); Red Blood Count 3.71 M/mm3 (4.2-5.4); White Blood Count 18.5 K/mm3 (4.4-11.0)
[2019-01-18 05:01] LABS: NRBC Flagged by Analyzer 0.9 % (0-5)
[2019-01-18 05:02] LABS: Absolute Nucleated RBC Count 0.18 10^3/uL (0-5)
[2019-01-18 05:14] LABS: Eosinophil 1 % (0-5); Lymphocyte 15 % (19-41); Metamyelocyte 7 % (0-1); Monocyte 3 % (0-10); Myelocyte 1 (0-0); Neutrophil-Band 12 % (0-5); Neutrophil-Segmented 61 % (47-70); Total Cells Counted 100 (MANUAL DIFF)
[2019-01-18 05:16] LABS: Absolute Lymphocyte Count 2.78 X10^3/ul (0.83-4.51); Lymphocyte # 2.78 X10^3/ul (4.0); Neutrophil # 14.99 X10^3/uL (2.7-7.7)
[2019-01-18 05:17] LABS: Platelet Estimate ADEQUATE (ADEQ); Polychromasia RARE; Reactive Lymphocyte 1+; Toxic Granulation 1+
[2019-01-18] MEDS: Enoxaparin 40 MG/0.4 ML Syringe SC (05:18)
[2019-01-18] MEDS: Furosemide 20 MG/2 ML VIAL IV (06:38)
--- NOTE | 2019-01-18 07:16 | PN_ITS ---
Subjective: Patient did well overnight. Patient is requiring a 50% Ventimask to maintain saturations and was unable to pass a bedside swallow evaluation yesterday. No fevers have been reported. Patient did have good response to diuretic therapy and reports subjective improvement in overall condition. Still very slow to respond to verbal stimulus. General: Alert, Cooperative, No apparent distress, - - Anasarca improved, but still present. Obese. No conversational dyspnea, but slow to respond. HEENT: Atraumatic, PERRLA, EOMI, Normocephalic, - - No scleral icterus or injection noted. Oral: Moist Mucosa, No Gingival or Mucosal Lesions/ Ulcerations Neck: Supple, No Nodes, Trachea Midline, JVD, Right Lungs: No rhonchi, No wheeze, No rales, Diminished, - - Fair effort. Symmetric expansion. Cardiovascular: Regular rate, Regular Rhythm, Normal S1, Normal S2, No murmurs, No rub noted, No Gallop, - - Patient did have some nonsustained V. tach overnight associated with change in body position. Abdomen: Bowel Sounds Present, Soft, Non Tender, Non-Distended, Obese Extremities: No clubbing, No cyanosis, Capillary Refill Less than 3 Seconds, Edema Skin: - - No significant change compared to previous Musculoskeletal: No Tenderness to Palpation of Joints or Extremities, No Muscle Wasting Lymphatic: No Cervical, Supraclavicular, or Inguinal Adenopathy Neurological: Cranial nerves II-XII grossly intact, Neuro grossly intact, Motor Exam 5/5 strength throughout Psych/Mental Status: Appropriate, Flat Affect Vital Signs Temp Pulse Resp BP Pulse Ox 36.7 C 87 20 H 105/60 96 01/18/19 07:00 01/18/19 07:00 01/18/19 07:00 01/18/19 07:00 01/18/19 07:00 Oxygen Flow Rate (L/min) 50 Oxygen Delivery Method Venturi Mask Weight: 89.9 kg Body Mass Index (BMI) 32.7 Intake and Output for Last 24 Hours 01/16/19 01/17/19 01/18/19 23:59 23:59 23:59 Intake Total 3900 / 3900 1841 / 1841 331 / 331 Output Total 675 / 675 5300 / 5300 200 / 200 Balance 3225 / 3225 -3459 / -3459 131 / 131 Labs (Last 48 Hours) 01/15/19 01/16/19 01/16/19 06:30 06:35 11:46 WBC DIRECTOR OF LOSS PREVENTION Corrected WBC 23.0 H RBC Hgb Hct MCV MCH MCHC RDW RDW Differential Plt Count MPV Neut % (Auto) Absolute Neuts (auto) 18.2 H Absolute Lymphs (auto) 2.76 Total Counted 100 Neutrophils % (Manual) 77 H Band Neutrophils % 2 Lymphocytes % (Manual) 12 L Monocytes % (Manual) Eosinophils % (Manual) 6 H Metamyelocytes % 1 Myelocytes % 2 H Nucleated RBC % Nucleated RBCs/100 WBC 5 Diff Path Review Reviewed Reviewed Reactive Lymphocytes Toxic Granulation Platelet Estimate ADEQUATE Plt Morphology Comment LARGE Polychromasia RARE Anisocytosis 2+ Absolute Retic Specimen Type Sample Site pH Bicarbonate Actual POC Total CO2 Base Excess O2 Saturation O2 % ABG pCO2 ABG pO2 O2 Delivery Device Vent Mode POC PEEP POC Pressure Suppt Blood Gas Notified Whom Blood Gas Notified Time Sodium Potassium Chloride Carbon Dioxide Anion Gap BUN Creatinine Estim Creat Clear Calc Est GFR (MDRD) Af Amer Est GFR (MDRD) Non-Af BUN/Creatinine Ratio Glucose Calcium Phosphorus Magnesium Vancomycin Trough POC Glucose 118 H 01/16/19 01/17/19 01/17/19 17:26 04:30 07:09 WBC Corrected WBC RBC Hgb Hct MCV MCH MCHC RDW RDW Differential Plt Count MPV Neut % (Auto) Absolute Neuts (auto) Absolute Lymphs (auto) Total Counted Neutrophils % (Manual) Band Neutrophils % Lymphocytes % (Manual) Monocytes % (Manual) Eosinophils % (Manual) Metamyelocytes % Myelocytes % Nucleated RBC % Nucleated RBCs/100 WBC Diff Path Review Reactive Lymphocytes Toxic Granulation Platelet Estimate Plt Morphology Comment Polychromasia Anisocytosis Absolute Retic Specimen Type ART Sample Site L Brachial pH 7.44 Bicarbonate Actual 24.9 POC Total CO2 26 Base Excess 1 O2 Saturation 94 L O2 % 45 ABG pCO2 36.5 ABG pO2 67 L O2 Delivery Device Vent Vent Mode CPAP PS POC PEEP 5 POC Pressure Suppt 5 Blood Gas Notified Whom ICU MD Blood Gas Notified Time 708 Sodium 145 Potassium 3.4 L Chloride 111 H Carbon Dioxide 28.0 Anion Gap 6 BUN 20 H Creatinine 0.59 Estim Creat Clear Calc 116.02 Est GFR (MDRD) Af Amer 148 Est GFR (MDRD) Non-Af 123 BUN/Creatinine Ratio 33.7 H Glucose 134 H Calcium 7.5 L Phosphorus 3.0 Magnesium 2.3 Vancomycin Trough POC Glucose 107 01/17/19 01/17/19 01/17/19 10:00 13:30 15:00 WBC Corrected WBC RBC Hgb Hct MCV MCH MCHC RDW RDW Differential Plt Count MPV Neut % (Auto) Absolute Neuts (auto) Absolute Lymphs (auto) Total Counted Neutrophils % (Manual) Band Neutrophils % Lymphocytes % (Manual) Monocytes % (Manual) Eosinophils % (Manual) Metamyelocytes % Myelocytes % Nucleated RBC % Nucleated RBCs/100 WBC Diff Path Review Reactive Lymphocytes Toxic Granulation Platelet Estimate Plt Morphology Comment Polychromasia Anisocytosis Absolute Retic Specimen Type Sample Site pH Bicarbonate Actual POC Total CO2 Base Excess O2 Saturation O2 % ABG pCO2 ABG pO2 O2 Delivery Device Vent Mode POC PEEP POC Pressure Suppt Blood Gas Notified Whom Blood Gas Notified Time Sodium 141 Potassium 6.2 H* 4.3 Chloride 112 H Carbon Dioxide 28.0 Anion Gap 1 L BUN 15 Creatinine 0.55 Estim Creat Clear Calc 124.46 Est GFR (MDRD) Af Amer 161 Est GFR (MDRD) Non-Af 133 BUN/Creatinine Ratio 27.2 H Glucose 96 Calcium 7.5 L Phosphorus Magnesium Vancomycin Trough 15.3 H POC Glucose 01/18/19 01/18/19 04:15 04:15 WBC 18.5 H Corrected WBC RBC 3.71 L Hgb 10.7 L Hct 34.3 L MCV 92.5 MCH 28.8 MCHC 31.2 L RDW 15.3 H RDW Differential 49.8 H Plt Count 261 MPV 10.8 Neut % (Auto) Not Reportable Absolute Neuts (auto) 15.0 H Absolute Lymphs (auto) 2.78 Total Counted 100 Neutrophils % (Manual) 61 Band Neutrophils % 12 H Lymphocytes % (Manual) 15 L Monocytes % (Manual) 3 Eosinophils % (Manual) 1 Metamyelocytes % 7 H Myelocytes % 1 H Nucleated RBC % 0.9 Nucleated RBCs/100 WBC Diff Path Review May foll Reactive Lymphocytes 1+ Toxic Granulation 1+ Platelet Estimate ADEQUATE Plt Morphology Comment Polychromasia RARE Anisocytosis Absolute Retic 0.18 Specimen Type Sample Site pH Bicarbonate Actual POC Total CO2 Base Excess O2 Saturation O2 % ABG pCO2 ABG pO2 O2 Delivery Device Vent Mode POC PEEP POC Pressure Suppt Blood Gas Notified Whom Blood Gas Notified Time Sodium 145 Potassium 3.4 L Chloride 108 H Carbon Dioxide 29.0 Anion Gap 8 BUN 17 Creatinine 0.44 L Estim Creat Clear Calc 155.57 Est GFR (MDRD) Af Amer 208 Est GFR (MDRD) Non-Af 172 BUN/Creatinine Ratio 38.5 H Glucose 85 Calcium 8.1 L Phosphorus Magnesium Vancomycin Trough POC Glucose Microbiology 01/11/19 22:45 Blood Culture (Wb) - Femoral Artery Blood Culture - Final No growth in 5 days. 01/13/19 15:45 Blood Culture (Wb) - Pic Blood Culture - Preliminary No growth in 48 hours. Medical Necessity - Tobacco Use Smoking Status: Current every day smoker - Unclear pack per day history. Tobacco Use: Cigarettes Assessment/Plan All Active Problems (Last Reviewed 12/13/18 @ 15:11 by Sangeeta Bailey) Acute respiratory failure with hypoxia (Acute) Pneumonia (Acute) Sepsis (Acute) Cardiac enzymes elevated (Acute) Dental abscess (Acute) Upper respiratory infection (Acute) RECOMMENDATIONS: 1. Continue to wean FiO2 to maintain an oxygen saturation at or above 90%. 2. Continue diuresis as tolerated 3. Speech therapy for swallow evaluation 4. Continue bronchodilators. 5. Continue appropriate ICU prophylaxis. 6. Continue Tamiflu and antibiotics per ID recommendations. 7. Continue to monitor in the intensive care unit until oxygenation improves. IMPRESSIONS: 1. Acute hypoxemic respiratory failure secondary to influenza A and multifocal MRSA pneumonia The patient was intubated in the emergency department due to refractory agitation and hypoxemia. Not only does the patient have an influenza A infection, she has evidence of multifocal pneumonia with sputum that is positive for MRSA. The patient will remain on Tamiflu and antibiotics, under the d iscretion of infectious diseases. We will continue to wean her FiO2 as tolerated to maintain an oxygen saturation of 90%. Continue scheduled bronchodilators. Patient has responded well to diuretic therapy. Still has an element of atelectasis clinically, so aggressive pulmonary toileting and out of bed as tolerated will be recommended. Additional dose of Lasix given this morning. 2. Septic shock secondary to influenza A with superimposed MRSA pneumonia Off of pressor therapy. Continue current supportive measures. The patient has been more than adequately volume resuscitated. Continue antibiotics and Tamiflu per ID recommendations. 3. Toxic/metabolic encephalopathy Likely multifactorial in etiology with drug intoxication/overdose and pulmonary infectious process contributing. Continue current supportive measures with invasive mechanical ventilatory support. Patient continues to be relatively slow to respond. Cannot exclude an element of hypoxic encephalopathy. We will continue to monitor. 4. Personal history of endocarditis/heart failure with preserved ejection fraction/tricuspid valve insufficiency/pulmonary hypertension Continue current supportive measures as noted above. Surface echocardiogram did reveal evidence of stage I diastolic dysfunction, along with moderate tricuspid valve insufficiency and a right ventricular pressure estimated to be 53 mmHg. Diuretics have been initiated. Echocardiogram May need reevaluation following discharge 5. History of polysubstance abuse/tobacco dependency/reported baseline asthma/bipolar disorder/GERD Complicates care, management, recovery and prognosis. Continue nicotine replacement therapy while admitted to the hospital. PT/OT to work with patient. Code Visit Inpatient E&M: [id number] Subs Hosp L3
--- NOTE | 2019-01-18 08:24 | PCM.PN.HOSP ---
Patient Problems: Active and Suspected Problems (Last Reviewed 12/13/18 @ 15:11 by Sangeeta Bailey) Acute respiratory failure with hypoxia (Acute) Pneumonia (Acute) Sepsis (Acute) Cardiac enzymes elevated (Acute) Subjective: Breathing well. Wants food and drink. Vitals/I&O's: Vital Signs Temp Pulse Resp BP Pulse Ox 36.7 C 92 30 H 105/60 90 01/18/19 07:31 01/18/19 07:31 01/18/19 07:31 01/18/19 07:31 01/18/19 07:31 Oxygen Flow Rate (L/min) 4 Oxygen Delivery Method Nasal Cannula Weight: 89.9 kg Body Mass Index (BMI) 32.7 Intake and Output for Last 24 Hours 01/16/19 01/17/19 01/18/19 23:59 23:59 23:59 Intake Total 3900 / 3900 1841 / 1841 331 / 331 Output Total 675 / 675 5300 / 5300 200 / 200 Balance 3225 / 3225 -3459 / -3459 131 / 131 General: Alert, No apparent distress, - - hypophonic HEENT: Atraumatic, Normocephalic Oral: Moist Mucosa, No Gingival or Mucosal Lesions/ Ulcerations Neck: No Nodes, Thyroid Normal Size and Texture Lungs: Diminished, - - coarse breath sounds bilaterally. Cardiovascular: Regular rate, Regular Rhythm, Normal S1, Normal S2, No murmurs Abdomen: Bowel Sounds Present, Soft, Non Tender, Non-Distended, No Hepato-splenomegaly Extremities: No edema, No Calf Tenderness Skin: No rashes, No breakdown Musculoskeletal: No Tenderness to Palpation of Joints or Extremities, No Muscle Wasting Psych/Mental Status: Normal Affect, Appropriate Microbiology Past 72 Hours 01/11/19 22:45 Blood Culture (Wb) - Femoral Artery Blood Culture - Final No growth in 5 days. 01/13/19 15:45 Blood Culture (Wb) - Pic Blood Culture - Preliminary No growth in 48 hours. 01/15/19 15:30 Stool C. difficile DNA Amplification - Final Laboratory Results 01/15/19 06:30: Diff Path Review Reviewed 01/16/19 06:35: Diff Path Review Reviewed 01/17/19 10:00: Vancomycin Trough 15.3 H 01/17/19 13:30: Sodium 141, Potassium 6.2 H*, Chloride 112 H, Carbon Dioxide 28.0, Anion Gap 1 L, BUN 15, Creatinine 0.55, Estim Creat Clear Calc 124.46, Est GFR (MDRD) Af Amer 161, Est GFR (MDRD) Non-Af 133, BUN/Creatinine Ratio 27.2 H, Glucose 96, Calcium 7.5 L 01/17/19 15:00: Potassium 4.3 01/18/19 04:15: WBC 18.5 H, RBC 3.71 L, Hgb 10.7 L, Hct 34.3 L, MCV 92.5, MCH 28.8, MCHC 31.2 L, RDW 15.3 H, RDW Differential 49.8 H, Plt Count 261, MPV 10.8, Neut % (Auto) Not Reportable, Absolute Neuts (auto) 15.0 H, Absolute Lymphs (auto) 2.78, Total Counted 100, Neutrophils % (Manual) 61, Band Neutrophils % 12 H, Lymphocytes % (Manual) 15 L, Monocytes % (Manual) 3, Eosinophils % (Manual) 1, Metamyelocytes % 7 H, Myelocytes % 1 H, Nucleated RBC % 0.9, Diff Path Review May foll, Reactive Lymphocytes 1+, Toxic Granulation 1+, Platelet Estimate ADEQUATE, Polychromasia RARE, Absolute Retic 0.18 01/18/19 04:15: Sodium 145, Potassium 3.4 L, Chloride 108 H, Carbon Dioxide 29.0, Anion Gap 8, BUN 17, Creatinine 0.44 L, Estim Creat Clear Calc 155.57, Est GFR (MDRD) Af Amer 208, Est GFR (MDRD) Non-Af 172, BUN/Creatinine Ratio 38.5 H, Glucose 85, Calcium 8.1 L Current Medications Acetaminophen (Tylenol Liquid) 650 mg GT Q6 [facility] Last Admin: 01/18/19 05:10 Dose: Not Given Albuterol Sulfate (Ventolin Aerosols) 2.5 mg INHALATION Q2H PRN PRN PRN Reason: SHORTNESS OF BREATH Aspirin (Aspirin, Baby) 81 mg GT DAILY@0800 [facility] Last Admin: 01/17/19 10:10 Dose: Not Given Calamine/Phenol (Calmoseptine Ointment) 1 applic TOPICAL BID [facility]; Protocol Last Admin: 01/17/19 21:39 Dose: 1 applicatio Chlorhexidine Gluconate () 1 each TOPICAL DAILY [facility] Last Admin: 01/17/19 03:09 Dose: 1 each Enoxaparin Sodium (Lovenox) 40 mg SC DAILY@0600 [facility] Last Admin: 01/18/19 05:18 Dose: 40 mg Famotidine (Pepcid) 20 mg GT BID [facility] Last Admin: 01/17/19 19:53 Dose: Not Given Hydralazine HCl (Apresoline Iv) 10 mg IV Q4H PRN PRN PRN Reason: SBP > 160 Sodium Chloride () 250 mls @ 15 mls/hr IV .[id number] PRN PRN Reason: SALINE FLUSH Last Admin: 01/18/19 02:10 Dose: 15 mls/hr Vancomycin IV Pharmacy to Dose (1 ea/ Sodium Chloride) 500 mls @ 250 mls/hr IV PRN PRN; Protocol PRN Reason: Rx to Dose Vancomycin HCl 1,000 mg/ (Sodium Chloride) 200 mls @ 200 mls/hr IV Q8H [facility] Last Admin: 01/18/19 02:10 Dose: 200 mls/hr Magnesium Hydroxide (Milk Of Magnesia) 30 ml GT DAILY PRN PRN PRN Reason: Constipation Nicotine (Nicoderm Cq (Pbkc)) 14 mg TRANSDERM. DAILY [facility] Last Admin: 01/17/19 10:12 Dose: 14 mg Ondansetron HCl (Zofran) 4 mg IV Q8H PRN PRN PRN Reason: NAUSEA/VOMITING Polyethylene Glycol (Miralax) 17 gm GT BID [facility] Last Admin: 01/17/19 19:53 Dose: Not Given Potassium Phos/Sodium Phos (Neutra-Phos Packet) 2 packet NG BID [facility] Last Admin: 01/17/19 19:53 Dose: Not Given Quetiapine Fumarate (Seroquel) 50 mg NG BID [facility] Last Admin: 01/17/19 19:54 Dose: Not Given Senna/Docusate Sodium (Senokot-S, Kaylee-Colace) 2 tablet GT BID [facility] Last Admin: 01/17/19 19:53 Dose: Not Given Sodium Chloride () 5 - 15 ml IV UD PRN PRN Reason: SALINE FLUSH Last Admin: 01/18/19 04:17 Dose: 10 ml Medical Necessity - Tobacco Use Smoking Status: Current every day smoker - Unclear pack per day history. Tobacco Use: Cigarettes Assessment/Plan All Active Problems (Last Reviewed 12/13/18 @ 15:11 by Sangeeta Bailey) Acute respiratory failure with hypoxia (Acute) Pneumonia (Acute) Sepsis (Acute) Cardiac enzymes elevated (Acute) Dental abscess (Acute) Upper respiratory infection (Acute) 1. Acute hypoxic respiratory failure: POA. improving. 2/2 PNA, influenza, poly substance abuse, +/- ALI. extubated 01/17. Improving. Wean oxygen as tolerated. Pulmonary toilet. Received a 1 time dose of lasix in case this is CHF. 2. MRSA pneumonia: stable. on Vancomycin. ? Aspiration from OD? Pulm toilet. ID following. 3. Influenza A: resolved. completed Tamiflu. 4. Polysubstance abuse: Drug screen positive for Opiates, Amphetamines, methamphetamines. Hold off on withdrawal treatment at this time. 5. Septic shock: resolved off pressors currently. 2/2 Pneumonia and influenza. 6. Toxic and metabolic encephalopathy: likely combination of Overdose as well as underlying infection. 7. DVT proph: LMWH. 8. Dysphagia: ongoing. likely due to intubation. NPO for now. Speech therapy evaluation ongoing. 9. Disposition: transfer to med/surg unit today. I do not anticipate discharge for at least another 48h. Code Visit Inpatient E&M: 35473 Subs Hosp L2
--- NOTE | 2019-01-18 08:29 | PN_ITS ---
Patient Problems: Active and Suspected Problems (Last Reviewed 12/13/18 @ 15:11 by Sangeeta Bailey) Acute respiratory failure with hypoxia (Acute) Pneumonia (Acute) Sepsis (Acute) Cardiac enzymes elevated (Acute) Subjective: Breathing well. Wants food and drink. Vitals/I&O's: Vital Signs Temp Pulse Resp BP Pulse Ox 36.7 C 92 30 H 105/60 90 01/18/19 07:31 01/18/19 07:31 01/18/19 07:31 01/18/19 07:31 01/18/19 07:31 Oxygen Flow Rate (L/min) 4 Oxygen Delivery Method Nasal Cannula Weight: 89.9 kg Body Mass Index (BMI) 32.7 Intake and Output for Last 24 Hours 01/16/19 01/17/19 01/18/19 23:59 23:59 23:59 Intake Total 3900 / 3900 1841 / 1841 331 / 331 Output Total 675 / 675 5300 / 5300 200 / 200 Balance 3225 / 3225 -3459 / -3459 131 / 131 General: Alert, No apparent distress, - - hypophonic HEENT: Atraumatic, Normocephalic Oral: Moist Mucosa, No Gingival or Mucosal Lesions/ Ulcerations Neck: No Nodes, Thyroid Normal Size and Texture Lungs: Diminished, - - coarse breath sounds bilaterally. Cardiovascular: Regular rate, Regular Rhythm, Normal S1, Normal S2, No murmurs Abdomen: Bowel Sounds Present, Soft, Non Tender, Non-Distended, No Hepato- splenomegaly Extremities: No edema, No Calf Tenderness Skin: No rashes, No breakdown Musculoskeletal: No Tenderness to Palpation of Joints or Extremities, No Muscle Wasting Psych/Mental Status: Normal Affect, Appropriate Microbiology Past 72 Hours 01/11/19 22:45 Blood Culture (Wb) - Femoral Artery Blood Culture - Final No growth in 5 days. 01/13/19 15:45 Blood Culture (Wb) - Pic Blood Culture - Preliminary No growth in 48 hours. 01/15/19 15:30 Stool C. difficile DNA Amplification - Final Laboratory Results 01/15/19 06:30: Diff Path Review Reviewed 01/16/19 06:35: Diff Path Review Reviewed 01/17/19 10:00: Vancomycin Trough 15.3 H 01/17/19 13:30: Sodium 141, Potassium 6.2 H*, Chloride 112 H, Carbon Dioxide 28.0, Anion Gap 1 L, BUN 15, Creatinine 0.55, Estim Creat Clear Calc 124.46, Est GFR (MDRD) Af Amer 161, Est GFR (MDRD) Non-Af 133, BUN/Creatinine Ratio 27.2 H, Glucose 96, Calcium 7.5 L 01/17/19 15:00: Potassium 4.3 01/18/19 04:15: WBC 18.5 H, RBC 3.71 L, Hgb 10.7 L, Hct 34.3 L, MCV 92.5, MCH 28.8, MCHC 31.2 L, RDW 15.3 H, RDW Differential 49.8 H, Plt Count 261, MPV 10.8, Neut % (Auto) Not Reportable, Absolute Neuts (auto) 15.0 H, Absolute Lymphs (auto) 2.78, Total Counted 100, Neutrophils % (Manual) 61, Band Neutrophils % 12 H, Lymphocytes % (Manual) 15 L, Monocytes % (Manual) 3, Eosinophils % (Manual) 1, Metamyelocytes % 7 H, Myelocytes % 1 H, Nucleated RBC % 0.9, Diff Path Review May foll, Reactive Lymphocytes 1+, Toxic Granulation 1+, Platelet Estimate ADEQUATE, Polychromasia RARE, Absolute Retic 0.18 01/18/19 04:15: Sodium 145, Potassium 3.4 L, Chloride 108 H, Carbon Dioxide 29.0, Anion Gap 8, BUN 17, Creatinine 0.44 L, Estim Creat Clear Calc 155.57, Est GFR (MDRD) Af Amer 208, Est GFR (MDRD) Non-Af 172, BUN/Creatinine Ratio 38.5 H, Glucose 85, Calcium 8.1 L Current Medications Acetaminophen (Tylenol Liquid) 650 mg GT Q6 [facility] Last Admin: 01/18/19 05:10 Dose: Not Given Albuterol Sulfate (Ventolin Aerosols) 2.5 mg INHALATION Q2H PRN PRN PRN Reason: SHORTNESS OF BREATH Aspirin (Aspirin, Baby) 81 mg GT DAILY@0800 [facility] Last Admin: 01/17/19 10:10 Dose: Not Given Calamine/Phenol (Calmoseptine Ointment) 1 applic TOPICAL BID [facility]; Protocol Last Admin: 01/17/19 21:39 Dose: 1 applicatio Chlorhexidine Gluconate () 1 each TOPICAL DAILY [facility] Last Admin: 01/17/19 03:09 Dose: 1 each Enoxaparin Sodium (Lovenox) 40 mg SC DAILY@0600 [facility] Last Admin: 01/18/19 05:18 Dose: 40 mg Famotidine (Pepcid) 20 mg GT BID [facility] Last Admin: 01/17/19 19:53 Dose: Not Given Hydralazine HCl (Apresoline Iv) 10 mg IV Q4H PRN PRN PRN Reason: SBP > 160 Sodium Chloride () 250 mls @ 15 mls/hr IV .[id number] PRN PRN Reason: SALINE FLUSH Last Admin: 01/18/19 02:10 Dose: 15 mls/hr Vancomycin IV Pharmacy to Dose (1 ea/ Sodium Chloride) 500 mls @ 250 mls/hr IV PRN PRN; Protocol PRN Reason: Rx to Dose Vancomycin HCl 1,000 mg/ (Sodium Chloride) 200 mls @ 200 mls/hr IV Q8H [facility] Last Admin: 01/18/19 02:10 Dose: 200 mls/hr Magnesium Hydroxide (Milk Of Magnesia) 30 ml GT DAILY PRN PRN PRN Reason: Constipation Nicotine (Nicoderm Cq (Pbkc)) 14 mg TRANSDERM. DAILY [facility] Last Admin: 01/17/19 10:12 Dose: 14 mg Ondansetron HCl (Zofran) 4 mg IV Q8H PRN PRN PRN Reason: NAUSEA/VOMITING Polyethylene Glycol (Miralax) 17 gm GT BID [facility] Last Admin: 01/17/19 19:53 Dose: Not Given Potassium Phos/Sodium Phos (Neutra-Phos Packet) 2 packet NG BID [facility] Last Admin: 01/17/19 19:53 Dose: Not Given Quetiapine Fumarate (Seroquel) 50 mg NG BID [facility] Last Admin: 01/17/19 19:54 Dose: Not Given Senna/Docusate Sodium (Senokot-S, Kaylee-Colace) 2 tablet GT BID [facility] Last Admin: 01/17/19 19:53 Dose: Not Given Sodium Chloride () 5 - 15 ml IV UD PRN PRN Reason: SALINE FLUSH Last Admin: 01/18/19 04:17 Dose: 10 ml Medical Necessity - Tobacco Use Smoking Status: Current every day smoker - Unclear pack per day history. Tobacco Use: Cigarettes Assessment/Plan All Active Problems (Last Reviewed 12/13/18 @ 15:11 by Sangeeta Bailey) Acute respiratory failure with hypoxia (Acute) Pneumonia (Acute) Sepsis (Acute) Cardiac enzymes elevated (Acute) Dental abscess (Acute) Upper respiratory infection (Acute) 1. Acute hypoxic respiratory failure: POA. improving. 2/2 PNA, influenza, poly substance abuse, +/- ALI. extubated 01/17. Improving. Wean oxygen as tolerated. Pulmonary toilet. Received a 1 time dose of lasix in case this is CHF. 2. MRSA pneumonia: stable. on Vancomycin. ? Aspiration from OD? Pulm toilet. ID following. 3. Influenza A: resolved. completed Tamiflu. 4. Polysubstance abuse: Drug screen positive for Opiates, Amphetamines, methamphetamines. Hold off on withdrawal treatment at this time. 5. Septic shock: resolved off pressors currently. 2/2 Pneumonia and influenza. 6. Toxic and metabolic encephalopathy: likely combination of Overdose as well as underlying infection. 7. DVT proph: LMWH. 8. Dysphagia: ongoing. likely due to intubation. NPO for now. Speech therapy evaluation ongoing. 9. Disposition: transfer to med/surg unit today. I do not anticipate discharge for at least another 48h. Code Visit Inpatient E&M: 63452 Subs Hosp L2
--- NOTE | 2019-01-18 09:24 | CASEMGMT ---
YUKI briefly spoke with patient this am. She was pretty drowsy. YUKI asked her if she had a plan for discharge. She said, Moms. YUKI asked if she is going home with her mom and she nodded her head yes. YUKI asked if her mom knows this and is ok with it and she nodded her head. She could not keep her eyes open. YUKI told her we will continue to follow and assist with d/c planning. Sushila MCNAIR MSW
--- NOTE | 2019-01-18 10:00 | PCM.PN.ID ---
Patient Problems: Active and Suspected Problems (Last Reviewed 12/13/18 @ 15:11 by Sangeeta Bailey) Acute respiratory failure with hypoxia (Acute) Pneumonia (Acute) Sepsis (Acute) Cardiac enzymes elevated (Acute) Subjective: Feels thirsty and hungry. SOB improved. No fever. - Physical Exam General: Alert, Oriented x3, Cooperative, No apparent distress Lungs: Diminished, Rhonchi Cardiovascular: Regular rate, Regular Rhythm, Murmur Abdomen: Soft, Non Tender, Non-Distended Extremities: Edema Skin: No rashes Vital Signs Temp Pulse Resp BP Pulse Ox 98.5 F 91 23 H 96/53 L 95 01/18/19 09:00 01/18/19 09:00 01/18/19 09:00 01/18/19 09:00 01/18/19 09:00 Oxygen Flow Rate (L/min) 4 Oxygen Delivery Method Room Air Weight: 89.9 kg Body Mass Index (BMI) 32.7 Intake and Output for Last 24 Hours 01/16/19 01/17/19 01/18/19 23:59 23:59 23:59 Intake Total 3900 / 3900 1841 / 1841 331 / 331 Output Total 675 / 675 5300 / 5300 200 / 200 Balance 3225 / 3225 -3459 / -3459 131 / 131 Microbiology Past 72 Hours 01/11/19 22:45 Blood Culture - Final Blood Culture (Wb) - Femoral Artery No growth in 5 days. 01/13/19 15:45 Blood Culture - Preliminary Blood Culture (Wb) - Pic No growth in 48 hours. 01/15/19 15:30 C. difficile DNA Amplification - Final Stool Laboratory Tests Past 24 Hrs 01/15/19 01/16/19 01/17/19 06:30 06:35 10:00 WBC RBC Hgb Hct MCV MCH MCHC RDW RDW Differential Plt Count MPV Neut % (Auto) Absolute Neuts (auto) Absolute Lymphs (auto) Total Counted Neutrophils % (Manual) Band Neutrophils % Lymphocytes % (Manual) Monocytes % (Manual) Eosinophils % (Manual) Metamyelocytes % Myelocytes % Nucleated RBC % Diff Path Review Reviewed Reviewed Reactive Lymphocytes Toxic Granulation Platelet Estimate Polychromasia Absolute Retic Sodium Potassium Chloride Carbon Dioxide Anion Gap BUN Creatinine Estim Creat Clear Calc Est GFR (MDRD) Af Amer Est GFR (MDRD) Non-Af BUN/Creatinine Ratio Glucose Calcium Vancomycin Trough 15.3 H 01/17/19 01/17/19 01/18/19 13:30 15:00 04:15 WBC 18.5 H RBC 3.71 L Hgb 10.7 L Hct 34.3 L MCV 92.5 MCH 28.8 MCHC 31.2 L RDW 15.3 H RDW Differential 49.8 H Plt Count 261 MPV 10.8 Neut % (Auto) Not Reportable Absolute Neuts (auto) 15.0 H Absolute Lymphs (auto) 2.78 Total Counted 100 Neutrophils % (Manual) 61 Band Neutrophils % 12 H Lymphocytes % (Manual) 15 L Monocytes % (Manual) 3 Eosinophils % (Manual) 1 Metamyelocytes % 7 H Myelocytes % 1 H Nucleated RBC % 0.9 Diff Path Review May foll Reactive Lymphocytes 1+ Toxic Granulation 1+ Platelet Estimate ADEQUATE Polychromasia RARE Absolute Retic 0.18 Sodium 141 Potassium 6.2 H* 4.3 Chloride 112 H Carbon Dioxide 28.0 Anion Gap 1 L BUN 15 Creatinine 0.55 Estim Creat Clear Calc 124.46 Est GFR (MDRD) Af Amer 161 Est GFR (MDRD) Non-Af 133 BUN/Creatinine Ratio 27.2 H Glucose 96 Calcium 7.5 L Vancomycin Trough 01/18/19 04:15 WBC RBC Hgb Hct MCV MCH MCHC RDW RDW Differential Plt Count MPV Neut % (Auto) Absolute Neuts (auto) Absolute Lymphs (auto) Total Counted Neutrophils % (Manual) Band Neutrophils % Lymphocytes % (Manual) Monocytes % (Manual) Eosinophils % (Manual) Metamyelocytes % Myelocytes % Nucleated RBC % Diff Path Review Reactive Lymphocytes Toxic Granulation Platelet Estimate Polychromasia Absolute Retic Sodium 145 Potassium 3.4 L Chloride 108 H Carbon Dioxide 29.0 Anion Gap 8 BUN 17 Creatinine 0.44 L Estim Creat Clear Calc 155.57 Est GFR (MDRD) Af Amer 208 Est GFR (MDRD) Non-Af 172 BUN/Creatinine Ratio 38.5 H Glucose 85 Calcium 8.1 L Vancomycin Trough Medical Necessity - Tobacco Use Smoking Status: Current every day smoker - Unclear pack per day history. Tobacco Use: Cigarettes Route of nutrition/ use of supplements: [] Nutritional Intake: [] IV Site: [] Khalil Catheter: [] - Assessment/Plan Antibiotics: [] Assessment/Plan: [] Active and Suspected Problems (Last Reviewed 12/13/18 @ 15:11 by Sangeeta Bailey) Acute respiratory failure with hypoxia (Acute) Pneumonia (Acute) Sepsis (Acute) Cardiac enzymes elevated (Acute) septic shock with flu, MRSA pneumonia, and suspected aspiration pneumonia in pt with polysubstance abuse, hep C, and h/o endocarditis - Bcx neg so far. Echo showed no veg. Now extubated. Completed 5 days of tamiflu. Has completed 6 days of vanc, plan on stop tomorrow and change to po or monitor off of abx. 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 HIV neg. LFTs with some transaminitis, improving. Will follow
[2019-01-18] MEDS: Menthol/Lanolin/Calamine/Znox 113 GM Tube 1 APPLIC TOPICAL ×2 (10:48→21:59)
--- NOTE | 2019-01-18 12:29 | CT_ITS ---
STUDY: CTA CHEST REASON FOR EXAM: Female, 33 years old. HYPOXIA, PNEUMONIA, HX-ASTHMA, POLYSUBSTANCE ABUSE, HEP C, ENDOCARDITIS, STERNAL SURGERY, SPLENECTOMY RADIATION DOSAGE (If Supplied By Facility): CTDIvol = ( 9.77 ) mGy, DLP = ( 403.28 ) mGycm TECHNIQUE: The examination was performed with the intravenous administration of Isovue 370 75 IV. Post-processing of the angiographic images was performed, with multiplanar reformation and 3D reconstruction. Individualized dose optimization techniques were used for this CT. COMPARISON: None. FINDINGS: Normal enhancement of the main pulmonary artery and right and left pulmonary arteries. Small defects are seen in the segmental and subsegmental arteries in the right and left lower lobes consistent with bilateral pulmonary emboli. There is no demonstrated pulmonary embolism. Normal thoracic aorta and visualized great vessels. There is no demonstrated aortic dissection. Normal heart and pericardium. There are multiple enlarged mediastinal lymph nodes, which are consistent with reactive lymphadenopathy. Normal hilar regions. Normal visualized trachea and bronchi. The lungs are under expanded. There are severely increased diffuse interstitial parenchymal markings. Normal pleura. Normal chest wall structures. Normal osseous structures. Normal visualized upper abdomen. The spleen has been removed. CT/CTA Chest W/WO Contrast IMPRESSION: Segmental and subsegmental pulmonary emboli in the right and left lung lower lobes. N.B. : The above information has been verbally conveyed by Lucas Mercado to JOYCE JANE on 01/18/2019 14:55:12 (ET). Electronically Signed: Lucas Mercado, at 15:07 EDT Tel , Service support ,
--- NOTE | 2019-01-18 13:41 | NURSING ---
report given to med-surg will transfer to room [address]
[2019-01-18 14:11] LABS: Pathologist Review Reviewed
[2019-01-18] MEDS: Enoxaparin 100 MG/ML Syringe 90 MG SC (17:57)
--- NOTE | 2019-01-18 23:30 | CPS ---
PT REFUSED TO WEAR BIPAP
[2019-01-19] VITALS (7 sets, daily range): BP systolic 93–133; BP diastolic 58–83; PULSE 74–92; RESP 16–22; TEMP 36.7–36.9; O2SAT 93–100
[2019-01-19 07:46] LABS: Differential Indicated MANUAL DIFF; Hematocrit 35.3 % (37-47); Hemoglobin 11.1 g/dl (12.0-15.0); Mean Corp Hgb Conc 31.4 g/gl (32-36); Mean Corpuscular Hgb 29.4 pg (27.0-32.0); Mean Corpuscular Volume 93.6 fL (81-99); Mean Platelet Vol. 11.3 fl (6.2-12.0); POSITIVE COUNT YES; POSITIVE DIFFERENTIAL NO; POSITIVE MORPHOLOGY YES; Platelet Count 319 K/mm3 (150-450); RBC Distribution Width SD 48.9 fl (35.1-43.9); Red Blood Count 3.77 M/mm3 (4.2-5.4); White Blood Count 15.9 K/mm3 (4.4-11.0)
[2019-01-19 07:47] LABS: Anion Gap 7 (5-15); BUN 20 mg/dL (7-18); BUN/Creat Ratio 37.3 RATIO (10-20); Calcium,Total 7.9 mg/dL (8.5-10.1); Chloride 109 mmol/L (98-107); Creatinine, Serum 0.54 mg/dL (0.55-1.02); EST Glomerular Filtration Rate 138 mL/min (>60); Est Glom Filt Rate - Afr Amer 167 mL/min (>60); Estimated Creatinine Clearance 126.76 ml/min; Glucose 80 mg/dL (74-106); Potassium 3.5 mmol/L (3.5-5.1); Sodium Level 142 mmol/L (136-145)
[2019-01-19 08:09] LABS: Eosinophil 1 % (0-5); Lymphocyte 25 % (19-41); Neutrophil-Band 1 % (0-5); Neutrophil-Segmented 73 % (47-70); Total Cells Counted 100 (MANUAL DIFF)
[2019-01-19 08:11] LABS: Anisocytosis 1+; Platelet Morphology LARGE; Polychromasia 1+
[2019-01-19 08:12] LABS: Platelet Estimate ADEQUATE (ADEQ)
[2019-01-19 08:13] LABS: Absolute Neutrophil Count 11.8 X10^3/uL (2.0-7.7)
--- NOTE | 2019-01-19 09:24 | CASEMGMT ---
Addendum entered by Joslyn Lucas 01/19/19 11:21: SW spoke w/pt again in regard to plan. Pt again is denying that she intentionally overdosed, states as per the chief science officer she did not overdose. Pt states she does not know what she took however. Pt states that as per her family, pt's PO is stating she has to go to a treatment program. SW asked pt if she does not go, what does that mean. Pt states she does not know. SW asked if pt is willing to go, she states, if I have to. SW explained we need to find out what her PO means, if that she has to go to a treatment program. Pt states her parents probably know as they have been speaking w/the PO, and may know that the PO meant. Also, pt wants to speak w/her mother. SW called pt's mother, Tonja, in regard to the PO and what she has been saying. Pt's mother states the PO had told them pt has to go to a treatment program, did not say the consequence if she does not go, but suspects pt may have to go back to half-way. Pt's mother states that pt's PO wants to speak w/pt, gave SW the PO's name and number: Rachel Neff, . SW explained will have pt call the PO. SW also let pt's mother know pt wants to speak w/her, gave her the phone number to her daughter's room. SW then went back to speak w/pt, she spoke to her mom and is now agreeable to speak w/the chief mechanical officer. SW called Rachel and put pt on the phone w/her, SW will follow up shortly. IAIN Fink, [employer] Original Note: SW attempted to speak w/pt this morning regarding discharge plan, pt woke up, only answered via nodding and shaking head. Pt confirmed what she told SW yesterday, that she is going to stay w/her mother at discharge. She confirmed via nodding that her mother knows how weak she is, and her mother is in agreement w/her going to her mother's home. Pt denied by shaking her head that her overdose was intentional. Pt gave SW permission to call her mother via nodding. SW explained to pt will follow up w/her again after she has physical therapy today, and will call her mother after that, pt nodded in agreement. SW will continue to follow. IAIN Fink, [employer]FFEE MAKER SERVICER
--- NOTE | 2019-01-19 09:24 | PCM.PN.HOSP ---
Patient Problems: Active and Suspected Problems (Last Reviewed 12/13/18 @ 15:11 by Sangeeta Bailey) Acute respiratory failure with hypoxia (Acute) Pneumonia (Acute) Sepsis (Acute) Cardiac enzymes elevated (Acute) Subjective: Denies any complaints. Per nursing: patient requiring assistance with turning in bed. Vitals/I&O's: Vital Signs Temp Pulse Resp BP Pulse Ox 36.9 C 74 18 122/73 H 93 01/19/19 01:49 01/19/19 01:49 01/19/19 01:49 01/19/19 01:49 01/19/19 01:49 Oxygen Flow Rate (L/min) 4 Oxygen Delivery Method Nasal Cannula Weight: 89.9 kg Body Mass Index (BMI) 32.7 Intake and Output for Last 24 Hours 01/17/19 01/18/19 01/19/19 23:59 23:59 23:59 Intake Total 1841 / 1841 481 / 481 679 / 679 Output Total 5300 / 5300 2175 / 2175 525 / 525 Balance -3459 / -3459 -1694 / -1694 154 / 154 General: Alert, No apparent distress, - - voice still weak, but stronger than 01/18 Oral: Moist Mucosa, No Gingival or Mucosal Lesions/ Ulcerations Neck: No Nodes, Thyroid Normal Size and Texture Lungs: Diminished, - - coars breath sounds bilaterally Cardiovascular: Regular rate, Regular Rhythm, Normal S1, Normal S2, No murmurs Abdomen: Bowel Sounds Present, Soft, Non Tender, Non-Distended, No Hepato-splenomegaly Extremities: No edema, No Calf Tenderness Skin: No rashes, No breakdown Musculoskeletal: No Tenderness to Palpation of Joints or Extremities, No Muscle Wasting Neurological: Sensory exam intact to light touch and pain, - - MS 4/5 in UE and LE. Psych/Mental Status: Appropriate, Flat Affect Microbiology Past 72 Hours 01/13/19 15:45 Blood Culture (Wb) - Pic Blood Culture - Final No growth in 5 days. 01/11/19 22:45 Blood Culture (Wb) - Femoral Artery Blood Culture - Final No growth in 5 days. Laboratory Results 01/18/19 04:15: Diff Path Review Reviewed 01/19/19 06:35: WBC 15.9 H, RBC 3.77 L, Hgb 11.1 L, Hct 35.3 L, MCV 93.6, MCH 29.4, MCHC 31.4 L, RDW 16.0 H, RDW Differential 48.9 H, Plt Count 319, MPV 11.3, Neut % (Auto) Not Reportable, Absolute Neuts (auto) 11.8 H, Absolute Lymphs (auto) 3.90, Total Counted 100, Neutrophils % (Manual) 73 H, Band Neutrophils % 1, Lymphocytes % (Manual) 25, Eosinophils % (Manual) 1, Platelet Estimate ADEQUATE, Plt Morphology Comment LARGE, Polychromasia 1+, Anisocytosis 1+ 01/19/19 06:35: Sodium 142, Potassium 3.5, Chloride 109 H, Carbon Dioxide 26.0, Anion Gap 7, BUN 20 H, Creatinine 0.54 L, Estim Creat Clear Calc 126.76, Est GFR (MDRD) Af Amer 167, Est GFR (MDRD) Non-Af 138, BUN/Creatinine Ratio 37.3 H, Glucose 80, Calcium 7.9 L Current Medications Acetaminophen (Tylenol Liquid) 650 mg GT Q6 [facility] Last Admin: 01/19/19 04:14 Dose: Not Given Albuterol Sulfate (Ventolin Aerosols) 2.5 mg INHALATION Q2H PRN PRN PRN Reason: SHORTNESS OF BREATH Aspirin (Aspirin, Baby) 81 mg GT DAILY@0800 [facility] Last Admin: 01/19/19 07:38 Dose: Not Given Calamine/Phenol (Calmoseptine Ointment) 1 applic TOPICAL BID [facility]; Protocol Last Admin: 01/18/19 21:59 Dose: 1 applicatio Chlorhexidine Gluconate () 1 each TOPICAL DAILY [facility] Last Admin: 01/18/19 15:42 Dose: Not Given Enoxaparin Sodium (Lovenox) 90 mg SC Q12 [facility] Last Admin: 01/18/19 17:57 Dose: 90 mg Vancomycin IV Pharmacy to Dose (1 ea/ Sodium Chloride) 500 mls @ 250 mls/hr IV PRN PRN; Protocol PRN Reason: Rx to Dose Vancomycin HCl 1,000 mg/ (Sodium Chloride) 200 mls @ 200 mls/hr IV Q8H [facility] Last Admin: 01/19/19 01:05 Dose: 200 mls/hr Sodium Chloride () 1,000 mls @ 75 mls/hr IV .[id number] [facility] Nicotine (Nicoderm Cq (Pbkc)) 14 mg TRANSDERM. DAILY [facility] Last Admin: 01/18/19 10:46 Dose: 14 mg Ondansetron HCl (Zofran) 4 mg IV Q8H PRN PRN PRN Reason: NAUSEA/VOMITING Senna/Docusate Sodium (Senokot-S, Kaylee-Colace) 2 tablet GT BID [facility] Last Admin: 01/18/19 22:02 Dose: Not Given Sodium Chloride () 5 - 15 ml IV UD PRN PRN Reason: SALINE FLUSH Last Admin: 01/18/19 04:17 Dose: 10 ml Medical Necessity - Tobacco Use Smoking Status: Current every day smoker - Unclear pack per day history. Tobacco Use: Cigarettes Assessment/Plan All Active Problems (Last Reviewed 12/13/18 @ 15:11 by Sangeeta Bailey) Acute respiratory failure with hypoxia (Acute) Pneumonia (Acute) Sepsis (Acute) Cardiac enzymes elevated (Acute) Dental abscess (Acute) Upper respiratory infection (Acute) 1. Acute hypoxic respiratory failure: POA. improving. 2/2 PNA, influenza, poly substance abuse, +/- ALI and pulmonary emboli. extubated 01/17. Improving. Wean oxygen as tolerated. Pulmonary toilet. Received a 1 time dose of lasix in case this is CHF. 2. MRSA pneumonia: stable. on Vancomycin. ? Aspiration from OD? Pulm toilet. ID following. 3. Influenza A: resolved. completed Tamiflu. 4. Polysubstance abuse: Drug screen positive for Opiates, Amphetamines, methamphetamines. Hold off on withdrawal treatment at this time. 5. Septic shock: resolved off pressors currently. 2/2 Pneumonia and influenza. 6. Pulmonary emboli: new diagnosis, but unclear if POA. May explain the elevated troponins and elevated right hear pressures. continue therapeutic LMWH for now. Eventually, when able to take oral, start NOACs. Follow up echo as outpt. Anticipate anticoagulation for 6 months. 7. Type 2 IA: likely demand due to resp failure, PNA, influenza, OD, shock, PE. 8. Toxic and metabolic encephalopathy: impoved. likely combination of Overdose as well as underlying infection. ?anoxic encephalopathy? 9. DVT proph: LMWH. 10. Dysphagia: ongoing. likely due to intubation. NPO for now. Speech therapy evaluation ongoing. 11. Disposition: I do not anticipate discharge for at least another 48h, given her debility, may need SNF. Code Visit Inpatient E&M: 28148 Subs Hosp L3
--- NOTE | 2019-01-19 09:33 | PN_ITS ---
Patient Problems: Active and Suspected Problems (Last Reviewed 12/13/18 @ 15:11 by Sangeeta Bailey) Acute respiratory failure with hypoxia (Acute) Pneumonia (Acute) Sepsis (Acute) Cardiac enzymes elevated (Acute) Subjective: Denies any complaints. Per nursing: patient requiring assistance with turning in bed. Vitals/I&O's: Vital Signs Temp Pulse Resp BP Pulse Ox 36.9 C 74 18 122/73 H 93 01/19/19 01:49 01/19/19 01:49 01/19/19 01:49 01/19/19 01:49 01/19/19 01:49 Oxygen Flow Rate (L/min) 4 Oxygen Delivery Method Nasal Cannula Weight: 89.9 kg Body Mass Index (BMI) 32.7 Intake and Output for Last 24 Hours 01/17/19 01/18/19 01/19/19 23:59 23:59 23:59 Intake Total 1841 / 1841 481 / 481 679 / 679 Output Total 5300 / 5300 2175 / 2175 525 / 525 Balance -3459 / -3459 -1694 / -1694 154 / 154 General: Alert, No apparent distress, - - voice still weak, but stronger than 01/18 Oral: Moist Mucosa, No Gingival or Mucosal Lesions/ Ulcerations Neck: No Nodes, Thyroid Normal Size and Texture Lungs: Diminished, - - coars breath sounds bilaterally Cardiovascular: Regular rate, Regular Rhythm, Normal S1, Normal S2, No murmurs Abdomen: Bowel Sounds Present, Soft, Non Tender, Non-Distended, No Hepato- splenomegaly Extremities: No edema, No Calf Tenderness Skin: No rashes, No breakdown Musculoskeletal: No Tenderness to Palpation of Joints or Extremities, No Muscle Wasting Neurological: Sensory exam intact to light touch and pain, - - MS 4/5 in UE and LE. Psych/Mental Status: Appropriate, Flat Affect Microbiology Past 72 Hours 01/13/19 15:45 Blood Culture (Wb) - Pic Blood Culture - Final No growth in 5 days. 01/11/19 22:45 Blood Culture (Wb) - Femoral Artery Blood Culture - Final No growth in 5 days. Laboratory Results 01/18/19 04:15: Diff Path Review Reviewed 01/19/19 06:35: WBC 15.9 H, RBC 3.77 L, Hgb 11.1 L, Hct 35.3 L, MCV 93.6, MCH 29.4, MCHC 31.4 L, RDW 16.0 H, RDW Differential 48.9 H, Plt Count 319, MPV 11.3, Neut % (Auto) Not Reportable, Absolute Neuts (auto) 11.8 H, Absolute Lymphs (auto) 3.90, Total Counted 100, Neutrophils % (Manual) 73 H, Band Neutrophils % 1, Lymphocytes % (Manual) 25, Eosinophils % (Manual) 1, Platelet Estimate ADEQUATE, Plt Morphology Comment LARGE, Polychromasia 1+, Anisocytosis 1+ 01/19/19 06:35: Sodium 142, Potassium 3.5, Chloride 109 H, Carbon Dioxide 26.0, Anion Gap 7, BUN 20 H, Creatinine 0.54 L, Estim Creat Clear Calc 126.76, Est GFR (MDRD) Af Amer 167, Est GFR (MDRD) Non-Af 138, BUN/Creatinine Ratio 37.3 H, Glucose 80, Calcium 7.9 L Current Medications Acetaminophen (Tylenol Liquid) 650 mg GT Q6 [facility] Last Admin: 01/19/19 04:14 Dose: Not Given Albuterol Sulfate (Ventolin Aerosols) 2.5 mg INHALATION Q2H PRN PRN PRN Reason: SHORTNESS OF BREATH Aspirin (Aspirin, Baby) 81 mg GT DAILY@0800 [facility] Last Admin: 01/19/19 07:38 Dose: Not Given Calamine/Phenol (Calmoseptine Ointment) 1 applic TOPICAL BID [facility]; Protocol Last Admin: 01/18/19 21:59 Dose: 1 applicatio Chlorhexidine Gluconate () 1 each TOPICAL DAILY [facility] Last Admin: 01/18/19 15:42 Dose: Not Given Enoxaparin Sodium (Lovenox) 90 mg SC Q12 [facility] Last Admin: 01/18/19 17:57 Dose: 90 mg Vancomycin IV Pharmacy to Dose (1 ea/ Sodium Chloride) 500 mls @ 250 mls/hr IV PRN PRN; Protocol PRN Reason: Rx to Dose Vancomycin HCl 1,000 mg/ (Sodium Chloride) 200 mls @ 200 mls/hr IV Q8H [facility] Last Admin: 01/19/19 01:05 Dose: 200 mls/hr Sodium Chloride () 1,000 mls @ 75 mls/hr IV .[id number] [facility] Nicotine (Nicoderm Cq (Pbkc)) 14 mg TRANSDERM. DAILY [facility] Last Admin: 01/18/19 10:46 Dose: 14 mg Ondansetron HCl (Zofran) 4 mg IV Q8H PRN PRN PRN Reason: NAUSEA/VOMITING Senna/Docusate Sodium (Senokot-S, Kaylee-Colace) 2 tablet GT BID [facility] Last Admin: 01/18/19 22:02 Dose: Not Given Sodium Chloride () 5 - 15 ml IV UD PRN PRN Reason: SALINE FLUSH Last Admin: 01/18/19 04:17 Dose: 10 ml Medical Necessity - Tobacco Use Smoking Status: Current every day smoker - Unclear pack per day history. Tobacco Use: Cigarettes Assessment/Plan All Active Problems (Last Reviewed 12/13/18 @ 15:11 by Sangeeta Bailey) Acute respiratory failure with hypoxia (Acute) Pneumonia (Acute) Sepsis (Acute) Cardiac enzymes elevated (Acute) Dental abscess (Acute) Upper respiratory infection (Acute) 1. Acute hypoxic respiratory failure: POA. improving. 2/2 PNA, influenza, poly substance abuse, +/- ALI and pulmonary emboli. extubated 01/17. Improving. Wean oxygen as tolerated. Pulmonary toilet. Received a 1 time dose of lasix in case this is CHF. 2. MRSA pneumonia: stable. on Vancomycin. ? Aspiration from OD? Pulm toilet. ID following. 3. Influenza A: resolved. completed Tamiflu. 4. Polysubstance abuse: Drug screen positive for Opiates, Amphetamines, methamphetamines. Hold off on withdrawal treatment at this time. 5. Septic shock: resolved off pressors currently. 2/2 Pneumonia and influenza. 6. Pulmonary emboli: new diagnosis, but unclear if POA. May explain the elevated troponins and elevated right hear pressures. continue therapeutic LMWH for now. Eventually, when able to take oral, start NOACs. Follow up echo as outpt. Anticipate anticoagulation for 6 months. 7. Type 2 DE: likely demand due to resp failure, PNA, influenza, OD, shock, PE. 8. Toxic and metabolic encephalopathy: impoved. likely combination of Overdose as well as underlying infection. ?anoxic encephalopathy? 9. DVT proph: LMWH. 10. Dysphagia: ongoing. likely due to intubation. NPO for now. Speech therapy evaluation ongoing. 11. Disposition: I do not anticipate discharge for at least another 48h, given her debility, may need SNF. Code Visit Inpatient E&M: 07673 Subs Hosp L3
[2019-01-19] MEDS: Senna/Docusate Sodium 1 Tablet 2 TABLET GT (10:06)
[2019-01-19] MEDS: Enoxaparin 100 MG/ML Syringe 90 MG SC ×2 (10:07→22:40)
[2019-01-19] MEDS: Menthol/Lanolin/Calamine/Znox 113 GM Tube 1 APPLIC TOPICAL (10:07)
--- NOTE | 2019-01-19 10:16 | PCM.PN.INT ---
Subjective: Patient transferred out of the intensive care unit yesterday. Patient did have a CT scan showing bilateral PEs, so anticoagulation has been initiated. Patient remains on nasal cannula oxygen, but overall feels improved. Patient feels she has less swelling compared to previous. No fevers have been noted overnight. No bleeding complications have been reported General: Alert, Oriented x3, Cooperative, No apparent distress, - - Continues to have hoarseness. Obese. HEENT: Atraumatic, PERRLA, EOMI, Normocephalic, - - No scleral icterus or injection noted. Oral: Moist Mucosa, No Gingival or Mucosal Lesions/ Ulcerations, - - Poor dentition. Neck: Supple, No JVD, No Nodes, Trachea Midline Lungs: No rhonchi, No rales, Diminished, Wheezes, - - Symmetric expansion. No dullness to percussion. Cardiovascular: Regular rate, Regular Rhythm, Normal S1, Normal S2, No murmurs, No rub noted, No Gallop Abdomen: Bowel Sounds Present, Soft, Non Tender, Non-Distended, Obese Extremities: No clubbing, No cyanosis, Edema - Continues to improve. Primarily lower extremities at this time. Skin: - - Significant change compared to previous Musculoskeletal: No Tenderness to Palpation of Joints or Extremities, No Muscle Wasting Lymphatic: No Cervical, Supraclavicular, or Inguinal Adenopathy Neurological: Cranial nerves II-XII grossly intact, Neuro grossly intact, Motor Exam 5/5 strength throughout Psych/Mental Status: Alert and oriented to time, place, person, mood and affect Vital Signs Temp Pulse Resp BP Pulse Ox 36.8 C 84 22 H 133/83 H 96 01/19/19 10:10 01/19/19 10:10 01/19/19 10:10 01/19/19 10:10 01/19/19 10:10 Oxygen Flow Rate (L/min) 4 Oxygen Delivery Method Nasal Cannula Weight: 90.832 kg Body Mass Index (BMI) 32.7 Intake and Output for Last 24 Hours 01/17/19 01/18/19 01/19/19 23:59 23:59 23:59 Intake Total 1841 / 1841 481 / 481 679 / 679 Output Total 5300 / 5300 2175 / 2175 525 / 525 Balance -3459 / -3459 -1694 / -1694 154 / 154 Labs (Last 48 Hours) 01/15/19 01/16/19 01/17/19 06:30 06:35 10:00 WBC RBC Hgb Hct MCV MCH MCHC RDW RDW Differential Plt Count MPV Neut % (Auto) Absolute Neuts (auto) Absolute Lymphs (auto) Total Counted Neutrophils % (Manual) Band Neutrophils % Lymphocytes % (Manual) Monocytes % (Manual) Eosinophils % (Manual) Metamyelocytes % Myelocytes % Nucleated RBC % Diff Path Review Reviewed Reviewed Reactive Lymphocytes Toxic Granulation Platelet Estimate Plt Morphology Comment Polychromasia Anisocytosis Absolute Retic Sodium Potassium Chloride Carbon Dioxide Anion Gap BUN Creatinine Estim Creat Clear Calc Est GFR (MDRD) Af Amer Est GFR (MDRD) Non-Af BUN/Creatinine Ratio Glucose Calcium Vancomycin Trough 15.3 H 01/17/19 01/17/19 01/18/19 13:30 15:00 04:15 WBC 18.5 H RBC 3.71 L Hgb 10.7 L Hct 34.3 L MCV 92.5 MCH 28.8 MCHC 31.2 L RDW 15.3 H RDW Differential 49.8 H Plt Count 261 MPV 10.8 Neut % (Auto) Not Reportable Absolute Neuts (auto) 15.0 H Absolute Lymphs (auto) 2.78 Total Counted 100 Neutrophils % (Manual) 61 Band Neutrophils % 12 H Lymphocytes % (Manual) 15 L Monocytes % (Manual) 3 Eosinophils % (Manual) 1 Metamyelocytes % 7 H Myelocytes % 1 H Nucleated RBC % 0.9 Diff Path Review Reviewed Reactive Lymphocytes 1+ Toxic Granulation 1+ Platelet Estimate ADEQUATE Plt Morphology Comment Polychromasia RARE Anisocytosis Absolute Retic 0.18 Sodium 141 Potassium 6.2 H* 4.3 Chloride 112 H Carbon Dioxide 28.0 Anion Gap 1 L BUN 15 Creatinine 0.55 Estim Creat Clear Calc 124.46 Est GFR (MDRD) Af Amer 161 Est GFR (MDRD) Non-Af 133 BUN/Creatinine Ratio 27.2 H Glucose 96 Calcium 7.5 L Vancomycin Trough 01/18/19 01/19/19 01/19/19 04:15 06:35 06:35 WBC 15.9 H RBC 3.77 L Hgb 11.1 L Hct 35.3 L MCV 93.6 MCH 29.4 MCHC 31.4 L RDW 16.0 H RDW Differential 48.9 H Plt Count 319 MPV 11.3 Neut % (Auto) Not Reportable Absolute Neuts (auto) 11.8 H Absolute Lymphs (auto) 3.90 Total Counted 100 Neutrophils % (Manual) 73 H Band Neutrophils % 1 Lymphocytes % (Manual) 25 Monocytes % (Manual) Eosinophils % (Manual) 1 Metamyelocytes % Myelocytes % Nucleated RBC % Diff Path Review Reactive Lymphocytes Toxic Granulation Platelet Estimate ADEQUATE Plt Morphology Comment LARGE Polychromasia 1+ Anisocytosis 1+ Absolute Retic Sodium 145 142 Potassium 3.4 L 3.5 Chloride 108 H 109 H Carbon Dioxide 29.0 26.0 Anion Gap 8 7 BUN 17 20 H Creatinine 0.44 L 0.54 L Estim Creat Clear Calc 155.57 126.76 Est GFR (MDRD) Af Amer 208 167 Est GFR (MDRD) Non-Af 172 138 BUN/Creatinine Ratio 38.5 H 37.3 H Glucose 85 80 Calcium 8.1 L 7.9 L Vancomycin Trough Microbiology 01/13/19 15:45 Blood Culture (Wb) - Pic Blood Culture - Final No growth in 5 days. 01/11/19 22:45 Blood Culture (Wb) - Femoral Artery Blood Culture - Final No growth in 5 days. Clinical Impression(s) from Imaging Studies Chest CTA 01/18/19 12:29 IMPRESSION: Segmental and subsegmental pulmonary emboli in the right and left lung lower lobes. N.B. : The above information has been verbally conveyed by Lucas Mercado to JOYCE JANE on 01/18/2019 14:55:12 (ET). Electronically Signed: Lucas Mercado, at 15:07 EDT Tel , Service support , ADDENDUM: 01/18/19 1514 IMPRESSION: Segmental and subsegmental pulmonary emboli in the right and left lung lower lobes. N.B. : The above information has been verbally conveyed by Lucas JANE on 01/18/2019 14:55:12 (ET). Electronically Signed: Lucas Mercado, at 15:07 EDT Tel , Service support , Medical Necessity - Tobacco Use Smoking Status: Current every day smoker - Unclear pack per day history. Tobacco Use: Cigarettes Assessment/Plan All Active Problems (Last Reviewed 12/13/18 @ 15:11 by Sangeeta Bailey) Acute respiratory failure with hypoxia (Acute) Pneumonia (Acute) Sepsis (Acute) Cardiac enzymes elevated (Acute) Dental abscess (Acute) Upper respiratory infection (Acute) RECOMMENDATIONS: 1. Continue to wean FiO2 to maintain an oxygen saturation at or above 90%. 2. Likely okay to hold on further diuresis 3. Speech therapy for swallow evaluation 4. Continue bronchodilators. 5. Discontinuation of Khalil 6. Continue antibiotics per ID recommendations. IMPRESSIONS: 1. Acute hypoxemic respiratory failure secondary to influenza A and multifocal MRSA pneumonia and pulmonary emboli The patient was intubated in the emergency department due to refractory agitation and hypoxemia. Not only does the patient have an influenza A infection, she has evidence of multifocal pneumonia with sputum that is positive for MRSA. The patient will remain on Tamiflu and antibiotics, under the discretion of infectious diseases. We will continue to wean her FiO2 as tolerated to maintain an oxygen saturation of 90%. Continue scheduled bronchodilators. Patient appears to be more volume appropriate. Likely okay to discontinue diuretic and Khalil catheter. Patient is on anticoagulation and tolerating well. 2. Septic shock secondary to influenza A with superimposed MRSA pneumonia Off of pressor therapy. Continue current supportive measures. The patient has been more than adequately volume resuscitated. Continue antibiotics per ID recommendations. Tamiflu course has been completed. 3. Toxic/metabolic encephalopathy Likely multifactorial in etiology with drug intoxication/overdose and pulmonary infectious process contributing. Continue current supportive measures with invasive mechanical ventilatory support. Patient continues to be relatively slow to respond. Cannot exclude an element of hypoxic encephalopathy. We will continue to monitor. 4. Personal history of endocarditis/heart failure with preserved ejection fraction/tricuspid valve insufficiency/pulmonary hypertension Continue current supportive measures as noted above. Surface echocardiogram did reveal evidence of stage I diastolic dysfunction, along with moderate tricuspid valve insufficiency and a right ventricular pressure estimated to be 53 mmHg. Diuretics have been initiated. Echocardiogram May need reevaluation following discharge to evaluate pulmonary artery pressures when euvolemic state. 5. History of polysubstance abuse/tobacco dependency/reported baseline asthma/bipolar disorder/GERD Complicates care, management, recovery and prognosis. Continue nicotine replacement therapy while admitted to the hospital. PT/OT to work with patient. Code Visit Inpatient E&M: [id number] Subs Hosp L3
[2019-01-19] MEDS: 0.9% NaCl Peripheral Flush Adult/Peds IV (11:57)
[2019-01-19] MEDS: Acetaminophen 325 MG Tablet 650 MG PO ×3 (12:52→23:17)
--- NOTE | 2019-01-19 12:55 | PCM.PN.ID ---
Patient Problems: Active and Suspected Problems (Last Reviewed 12/13/18 @ 15:11 by Sangeeta Bailey) Acute respiratory failure with hypoxia (Acute) Pneumonia (Acute) Sepsis (Acute) Cardiac enzymes elevated (Acute) Subjective: Feeling ok, still some SOB. C/o diarrhea, no abd pain, no fever. - Physical Exam General: Alert Lungs: Diminished Cardiovascular: Regular rate, Regular Rhythm Abdomen: Soft, Non Tender, Non-Distended Skin: No rashes Vital Signs Temp Pulse Resp BP Pulse Ox 98.3 F 84 22 H 133/83 H 96 01/19/19 10:10 01/19/19 10:10 01/19/19 10:10 01/19/19 10:10 01/19/19 10:10 Oxygen Flow Rate (L/min) 4 Oxygen Delivery Method Nasal Cannula Weight: 90.832 kg Body Mass Index (BMI) 32.7 Intake and Output for Last 24 Hours 01/17/19 01/18/19 01/19/19 23:59 23:59 23:59 Intake Total 1841 / 1841 481 / 481 679 / 679 Output Total 5300 / 5300 2175 / 2175 700 / 700 Balance -3459 / -3459 -1694 / -1694 -21 / -21 Microbiology Past 72 Hours 01/13/19 15:45 Blood Culture - Final Blood Culture (Wb) - Pic No growth in 5 days. 01/11/19 22:45 Blood Culture - Final Blood Culture (Wb) - Femoral Artery No growth in 5 days. Laboratory Tests Past 24 Hrs 01/18/19 01/19/19 01/19/19 04:15 06:35 06:35 WBC 15.9 H RBC 3.77 L Hgb 11.1 L Hct 35.3 L MCV 93.6 MCH 29.4 MCHC 31.4 L RDW 16.0 H RDW Differential 48.9 H Plt Count 319 MPV 11.3 Neut % (Auto) Not Reportable Absolute Neuts (auto) 11.8 H Absolute Lymphs (auto) 3.90 Total Counted 100 Neutrophils % (Manual) 73 H Band Neutrophils % 1 Lymphocytes % (Manual) 25 Eosinophils % (Manual) 1 Diff Path Review Reviewed Platelet Estimate ADEQUATE Plt Morphology Comment LARGE Polychromasia 1+ Anisocytosis 1+ Sodium 142 Potassium 3.5 Chloride 109 H Carbon Dioxide 26.0 Anion Gap 7 BUN 20 H Creatinine 0.54 L Estim Creat Clear Calc 126.76 Est GFR (MDRD) Af Amer 167 Est GFR (MDRD) Non-Af 138 BUN/Creatinine Ratio 37.3 H Glucose 80 Calcium 7.9 L Medical Necessity - Tobacco Use Smoking Status: Current every day smoker - Unclear pack per day history. Tobacco Use: Cigarettes Route of nutrition/ use of supplements: [] Nutritional Intake: [] IV Site: [] Khalil Catheter: [] - Assessment/Plan Antibiotics: [] Assessment/Plan: [] Active and Suspected Problems (Last Reviewed 12/13/18 @ 15:11 by Sangeeta Bailey) Acute respiratory failure with hypoxia (Acute) Pneumonia (Acute) Sepsis (Acute) Cardiac enzymes elevated (Acute) septic shock with flu, MRSA pneumonia, and suspected aspiration pneumonia in pt with polysubstance abuse, hep C, and h/o endocarditis - Bcx neg so far. Echo showed no veg. Now extubated. Completed 5 days of tamiflu. Has completed 7 days of vanc. Wbc nearly normal. Will stop and monitor off abx. CT showed multiple PEs. 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 HIV neg. LFTs with some transaminitis on arrival, improving. She reports she had appt this month for her hepatitis; likely not a candidate for treatment for at least several months due to ongoing drug use. Will follow
--- NOTE | 2019-01-19 13:12 | CASEMGMT ---
Addendum entered by Joslyn Lucas 01/19/19 13:44: Pt signed form for pt's PO so she can speak w/pt's mother, SW faxed it back to her. SW explained to pt too that her PO emailed the wood drilling machine operator to see if pt can be released to her parents and do outpt therapy. Pt would prefer this. SW asked pt about going somewhere for therapy rehab, pt states she has done this in the past in [place]. SW explained will follow up w/her tomorrow. IAIN Fink, STOCK FITTER Original Note: SW met w/pt again, she did sign a release for SW to speak w/her PO Rachel Neff. SW spoke w/pt further in regard to her history, both mental health and substance abuse. Living arrangements: Pt was at [facility] prior to this. She missed curfew so went elsewhere and used. A few days prior to this pt was at [facility]. Insurance: [employer] Family Dynamics/Support: Pt reports her parents(mother and step father), aunt and grandma are all supportive. They all live in [place]. LW/POA: No Medical History and Functioning: Reason for admission/relevant medical history: Overdose, pneumonia, sepsis, acute respiratory failure w/hypoxia, elevated troponins, asthma, bipolar, depression, anxiety, dental abscess ADLs/DME: Pt was fully independent prior to this, no DME, no O2 Programs/Agencies involved: [facility], and pt has a Director Of Strategic Initiatives, Rachel Neff Substance abuse history and current pattern of use: Pt states uses crack and heroin, smokes. Pt denies use of alcohol, marijuana, methamphetamine, cocaine, prescription drugs. Pt states drank alcohol when younger. Pt is not able to tell this SW when she started using, said her wildlife conservation officer knows the answer to this. She states she was clean since January of 2018 until this recent episode of use. Pt states was in and out of treatment and group home, was in three different treatment programs since January of 2018. She was in [place] and then came up here to [facility]. Pt reports has not used suboxone or methadone as part of treatment in the past. Mental Health History and Current Cognitive Status: Diagnoses: In chart, Bipolar, depression and anxiety SI/HI: Pt denies. Pt states she did not overdose, she just took something, does not know what she took that day she was not allowed back in to [facility] Treatment history: Pt vague about this, states sees Renetta at [facility], and has been on Zoloft, Clonadine, Albuterol, control and Gambapentin in the past. Current Cognitive/Mental Status: Pt alert and oriented, but seems unable to recall all details at this time. Pt is having difficulty speaking as well. Dr. Red then came in to see pt, SW explained will call her PO and speak w/her, and will follow up. SW called pt's PO Rachel Neff for clarification. She states that she is trying to get pt's case transferred to [facility] where pt's family lives. She states she has an email to the wood drilling machine operator to see what the wood drilling machine operator would be agreeable to in regard to this pt. Rachel states if pt does not go to an inpt treatment facility then pt would have to go back to court and that would not be good for pt. YUKI explained pt seems willing to go, however medically it may be difficult to find a facility that can take the pt. YUKI also explained that generally speaking the SW in the hospital does not place people for the courts. SW can certainly try, but at this point pt would likely not be considered appropriate due to her medical issues. YUKI explained that at the same time pt may not be a halfway candidate either. Rachel states she did ask the wood drilling machine operator if pt could be released to her family and do outpt treatment, but does not know if the wood drilling machine operator will be okay with that. Rachel states will know tomorrow and will call this SW back with the information. Rachel also faxed a release for pt to sign so that she can speak w/pt's mother. SW will have pt sign the release and fax it to Rachel, and follow up w/Rachel tomorrow. IAIN Fink, STOCK FITTER
--- NOTE | 2019-01-19 21:17 | CPS ---
pt refused bipap.
[2019-01-20 02:31] VITALS: BP 98/61; PULSE 86; RESP 16; TEMP 36.7; O2SAT 96
[2019-01-20] MEDS: Loratadine 10 MG Tablet PO (03:05)
[2019-01-20] MEDS: Benzonatate 100 MG Capsule PO ×2 (03:05→09:34)
[2019-01-20 06:50] LABS: Anion Gap 6 (5-15); BUN 15 mg/dL (7-18); BUN/Creat Ratio 24.2 RATIO (10-20); Calcium,Total 8.2 mg/dL (8.5-10.1); Chloride 107 mmol/L (98-107); Creatinine, Serum 0.62 mg/dL (0.55-1.02); EST Glomerular Filtration Rate 116 mL/min (>60); Est Glom Filt Rate - Afr Amer 141 mL/min (>60); Glucose 106 mg/dL (74-106); Potassium 3.5 mmol/L (3.5-5.1); Sodium Level 140 mmol/L (136-145)
[2019-01-20 07:10] LABS: Hematocrit 37.7 % (37-47); Hemoglobin 11.8 g/dl (12.0-15.0); Mean Corp Hgb Conc 31.3 g/gl (32-36); Mean Corpuscular Volume 92.6 fL (81-99); Mean Platelet Vol. 10.9 fl (6.2-12.0); Platelet Count 366 K/mm3 (150-450); RBC Distribution Width CV 15.8 % (11.6-14.6); RBC Distribution Width SD 49.1 fl (35.1-43.9); Red Blood Count 4.07 M/mm3 (4.2-5.4); White Blood Count 16.4 K/mm3 (4.4-11.0)
[2019-01-20 07:12] LABS: Differential Indicated MANUAL DIFF; POSITIVE COUNT NO; POSITIVE DIFFERENTIAL YES; POSITIVE MORPHOLOGY YES
[2019-01-20 07:24] LABS: Anisocytosis 1+; Eosinophil 3 % (0-5); Hypochromasia 1+; Lymphocyte 37 % (19-41); Metamyelocyte 2 % (0-1); Monocyte 3 % (0-10); Neutrophil-Segmented 55 % (47-70); Platelet Estimate ADEQUATE (ADEQ); Platelet Morphology LARGE; Polychromasia 1+; Reactive Lymphocyte 1+; Total Cells Counted 100 (MANUAL DIFF)
[2019-01-20 07:27] LABS: Absolute Lymphocyte Count 6.07 X10^3/ul (0.83-4.51)
--- NOTE | 2019-01-20 07:30 | PCM.PROGNOTE ---
Patient Problems: Active and Suspected Problems (Last Reviewed 12/13/18 @ 15:11 by Sangeeta Bailey) Acute respiratory failure with hypoxia (Acute) Pneumonia (Acute) Sepsis (Acute) Cardiac enzymes elevated (Acute) Subjective: Patient did well overnight. No acute issues were reported. Patient feels subjectively improved compared to previous. Patient does report minimal ambulation yesterday. Patient continues to report hoarseness. Khalil catheter has been removed and patient denies any urinary symptoms. No bleeding complications have been reported. - Physical Exam General: Alert, Oriented x3, Cooperative, No apparent distress, - - Hoarse voice. No conversational dyspnea noted. HEENT: Atraumatic, PERRLA, EOMI, Normocephalic, - - No scleral icterus or injection noted. Oral: Moist Mucosa, No Gingival or Mucosal Lesions/ Ulcerations, - - Poor dentition Neck: No JVD, No Nodes, Trachea Midline Lungs: No rhonchi, No wheeze, No rales, Diminished, - - Symmetric expansion. No dullness to percussion. Cardiovascular: Regular rate, Regular Rhythm, Normal S1, Normal S2, No murmurs, No rub noted, No Gallop Abdomen: Bowel Sounds Present, Soft, Non Tender, Non-Distended, Obese Extremities: No clubbing, No cyanosis, Edema Skin: - - No significant change compared to previous Musculoskeletal: No Tenderness to Palpation of Joints or Extremities Lymphatic: No Cervical, Supraclavicular, or Inguinal Adenopathy Neurological: Cranial nerves II-XII grossly intact, Neuro grossly intact, Motor Exam 5/5 strength throughout Psych/Mental Status: Alert and oriented to time, place, person, mood and affect Vital Signs Temp Pulse Resp BP Pulse Ox 36.7 C 86 16 98/61 96 01/20/19 02:31 01/20/19 02:31 01/20/19 02:31 01/20/19 02:31 01/20/19 02:31 Oxygen Flow Rate (L/min) 4 Oxygen Delivery Method Nasal Cannula Weight: 90.832 kg Body Mass Index (BMI) 32.7 Intake and Output for Last 24 Hours 01/18/19 01/19/19 01/20/19 23:59 23:59 23:59 Intake Total 481 / 481 679 / 679 500 / 500 Output Total 2175 / 2175 1100 / 1100 300 / 300 Balance -1694 / -1694 -421 / -421 200 / 200 Microbiology Past 72 Hours 01/13/19 15:45 Blood Culture - Final Blood Culture (Wb) - Pic No growth in 5 days. 01/11/19 22:45 Blood Culture - Final Blood Culture (Wb) - Femoral Artery No growth in 5 days. Laboratory Tests Past 24 Hrs 01/19/19 01/19/19 01/20/19 06:35 06:35 06:20 WBC 15.9 H 16.4 H RBC 3.77 L 4.07 L Hgb 11.1 L 11.8 L Hct 35.3 L 37.7 MCV 93.6 92.6 MCH 29.4 29.0 MCHC 31.4 L 31.3 L RDW 16.0 H 15.8 H RDW Differential 48.9 H 49.1 H Plt Count 319 366 MPV 11.3 10.9 Neut % (Auto) Not Reportable Not Reportable Absolute Neuts (auto) 11.8 H 9.0 H Absolute Lymphs (auto) 3.90 6.07 H Total Counted 100 100 Neutrophils % (Manual) 73 H 55 Band Neutrophils % 1 Lymphocytes % (Manual) 25 37 Monocytes % (Manual) 3 Eosinophils % (Manual) 1 3 Metamyelocytes % 2 H Diff Path Review May foll Reactive Lymphocytes 1+ Platelet Estimate ADEQUATE ADEQUATE Plt Morphology Comment LARGE LARGE Polychromasia 1+ 1+ Hypochromasia 1+ Anisocytosis 1+ 1+ Sodium 142 Potassium 3.5 Chloride 109 H Carbon Dioxide 26.0 Anion Gap 7 BUN 20 H Creatinine 0.54 L Estim Creat Clear Calc 126.76 Est GFR (MDRD) Af Amer 167 Est GFR (MDRD) Non-Af 138 BUN/Creatinine Ratio 37.3 H Glucose 80 Calcium 7.9 L 01/20/19 06:20 WBC RBC Hgb Hct MCV MCH MCHC RDW RDW Differential Plt Count MPV Neut % (Auto) Absolute Neuts (auto) Absolute Lymphs (auto) Total Counted Neutrophils % (Manual) Band Neutrophils % Lymphocytes % (Manual) Monocytes % (Manual) Eosinophils % (Manual) Metamyelocytes % Diff Path Review Reactive Lymphocytes Platelet Estimate Plt Morphology Comment Polychromasia Hypochromasia Anisocytosis Sodium 140 Potassium 3.5 Chloride 107 Carbon Dioxide 27.0 Anion Gap 6 BUN 15 Creatinine 0.62 Estim Creat Clear Calc 110.40 Est GFR (MDRD) Af Amer 141 Est GFR (MDRD) Non-Af 116 BUN/Creatinine Ratio 24.2 H Glucose 106 Calcium 8.2 L Medical Necessity - Tobacco Use Smoking Status: Current every day smoker - Unclear pack per day history. Tobacco Use: Cigarettes Assessment/Plan All Active Problems (Last Reviewed 12/13/18 @ 15:11 by Sangeeta Bailey) Acute respiratory failure with hypoxia (Acute) Pneumonia (Acute) Sepsis (Acute) Cardiac enzymes elevated (Acute) Dental abscess (Acute) Upper respiratory infection (Acute) RECOMMENDATIONS: 1. Continue to wean FiO2 to maintain an oxygen saturation at or above 90%. 2. Continue aggressive pulmonary toileting 3. Speech therapy for swallow evaluation 4. Continue bronchodilators. 5. Continue antibiotics per ID recommendations. IMPRESSIONS: 1. Acute hypoxemic respiratory failure secondary to influenza A and multifocal MRSA pneumonia and pulmonary emboli The patient was intubated in the emergency department due to refractory agitation and hypoxemia. Not only does the patient have an influenza A infection, she has evidence of multifocal pneumonia with sputum that is positive for MRSA. The patient will remain on Tamiflu and antibiotics, under the discretion of infectious diseases. We will continue to wean her FiO2 as tolerated to maintain an oxygen saturation of 90%. Continue scheduled bronchodilators. Patient appears to be more volume appropriate. Continue with anticoagulation for at least 3-6 months. Patient would benefit from increased ambulation and pulmonary toileting. Clinical suspicion the patient will require supplemental oxygen on discharge. 2. Septic shock secondary to influenza A with superimposed MRSA pneumonia Off of pressor therapy. Continue current supportive measures. The patient has been more than adequately volume resuscitated. Continue antibiotics per ID recommendations. Tamiflu course has been completed. 3. Toxic/metabolic encephalopathy Likely multifactorial in etiology with drug intoxication/overdose and pulmonary infectious process contributing. Continue current supportive measures with invasive mechanical ventilatory support. Patient continues to be relatively slow to respond. Cannot exclude an element of hypoxic encephalopathy. We will continue to monitor. 4. Personal history of endocarditis/heart failure with preserved ejection fraction/tricuspid valve insufficiency/pulmonary hypertension Continue current supportive measures as noted above. Surface echocardiogram did reveal evidence of stage I diastolic dysfunction, along with moderate tricuspid valve insufficiency and a right ventricular pressure estimated to be 53 mmHg. Diuretics have been initiated. Echocardiogram May need reevaluation following discharge to evaluate pulmonary artery pressures when euvolemic state. 5. History of polysubstance abuse/tobacco dependency/reported baseline asthma/bipolar disorder/GERD Complicates care, management, recovery and prognosis. Continue nicotine replacement therapy while admitted to the hospital. PT/OT to work with patient. Code Visit Inpatient E&M: 29620 Subs Hosp L3
--- NOTE | 2019-01-20 09:17 | DCINST_ITS ---
- Discharge Diagnoses Current Active Problems: Current Active and Chronic Problems (Last Reviewed 12/13/18 @ 15:11 by Sangeeta Bailey) Acute respiratory failure with hypoxia (Acute) Pneumonia (Acute) Sepsis (Acute) Cardiac enzymes elevated (Acute) Tobacco use (Chronic) Polysubstance abuse (Chronic) Hepatitis C (Chronic) You will use the following diet at home:: No restrictions Your food should be the consistency of: Regular Your liquids should be the consistency of: Regular/Thin Discharge Activity: Return to Normal Activity Call your doctor if you observe: Fever of 101 or Higher, Shortness of breath Additional Instructions: Chest Xray in 4-6 weeks for resolution of pneumonia. You will need to be on apixiban (blood thinner) for a total of 6 months. You will need refils through your primary care physician. Allergies/Adverse Reactions: Allergies acetaminophen [From Vicodin] Allergy (Severe, Verified 01/11/19 20:49) Vomiting hydrocodone [From Vicodin] Allergy (Severe, Verified 01/11/19 20:49) Vomiting citalopram [From Celexa] Allergy (Verified 01/11/19 20:49) Swollen tongue Medications to take at Discharge loratadine 10 mg tablet 10 mg PO DAILY #90 tab 11/05/18 albuterol sulfate HFA 90 mcg/actuation aerosol inhaler 2 puff INHALATION Q6H PRN #8 g 11/29/18 benzonatate 200 mg capsule 200 mg PO TID PRN #60 cap 12/13/18 ibuprofen 200 mg tablet 600 mg PO TID-QID PRN #60 tab 12/13/18 Apixaban [Eliquis] 5 mg PO BID #60 tablet 01/20/19 Guaifenesin [Mucinex] 1,200 mg PO BID #20 tab.er.12h 01/20/19 The following prescriptions were given: Apixaban [Eliquis] 5 mg PO BID #60 tablet Guaifenesin [Mucinex] 1,200 mg PO BID #20 tab.er.12h Primary Care Physician: Amando Graves MD [Primary Care Provider] - Within 1 Week Test Results: Test results from this visit will be discussed in further detail at your follow- up appointment, if applicable. Proposed Discharge Date: 01/20/19
--- NOTE | 2019-01-20 09:17 | PCM.DC.SUM ---
Discharge Date and Diagnosis - Problem List Patient Problems: Active and Suspected Problems (Last Reviewed 12/13/18 @ 15:11 by Sangeeta Bailey) Acute respiratory failure with hypoxia (Acute) Pneumonia (Acute) Sepsis (Acute) Cardiac enzymes elevated (Acute) Date of Admission: 01/11/19 Date of Discharge: 01/20/19 - Primary Discharge Diagnosis Active and Suspected Problems (Last Reviewed 12/13/18 @ 15:11 by Sangeeta Bailey) Acute respiratory failure with hypoxia (Acute) Pneumonia (Acute) Sepsis (Acute) Cardiac enzymes elevated (Acute) 1. Acute hypoxic respiratory failure: POA. improving. Multifactorial: 2/2 PNA, influenza, poly substance abuse, +/- ALI and pulmonary emboli. extubated 01/17. Wean oxygen as tolerated. Will need oxygen as due to hypoxia and respiratory failure. 2. MRSA pneumonia: stable. Completed 7 days of Vancomycin. ? Aspiration from OD? Pulm toilet. ID following. Follow up CXR in 4-6 weeks. 3. Influenza A: resolved. completed Tamiflu. 4. Polysubstance abuse: Drug screen positive for Opiates, Amphetamines, methamphetamines. Hold off on withdrawal treatment at this time. Follow up outpt for addiction mgmt. 5. Septic shock: resolved off pressors currently. 2/2 Pneumonia and influenza. 6. Pulmonary emboli: new diagnosis, but unclear if POA. May explain the elevated troponins and elevated right hear pressures. Follow up echocardiogram as outpt. DC Lovenox and start apixiban now that she is able to take oral. 7. Type 2 MT: stable likely demand due to resp failure, PNA, influenza, OD, shock, PE. 8. Toxic and metabolic encephalopathy: improved. likely combination of Overdose as well as underlying infection. Question component of anoxic encephalopathy 9. Dysphagia: resolved. Passed Bedside swallow evaluation. - Secondary Discharge Diagnosis Chronic Problems (Last Reviewed 12/13/18 @ 15:11 by Sangeeta Bailey) Tobacco use (Chronic) Polysubstance abuse (Chronic) Hepatitis C (Chronic) Asthma (Chronic) Anxiety (Chronic) Endocarditis (Chronic) Heart murmur (Chronic) Bipolar 1 disorder (Chronic) Manic depression (Chronic) Hospital Course and Treatment Imaging Results: Clinical Impression(s) from Imaging Studies Chest X-Ray 01/11/19 20:08 IMPRESSION: Endotracheal and nasogastric tubes appearing in adequate position. Bilateral pulmonary infiltrates left side more severely affected than right. Electronically Signed: Keegan Munoz MD at 21:57 EDT , Service support , Liver Ultrasound 01/12/19 05:55 IMPRESSION: Mild hepatomegaly. Trace amount of pericholecystic fluid and sludge within the gallbladder lumen. Electronically Signed: Ever See, at 16:11 EDT , Service support , Chest X-Ray 01/13/19 07:54 IMPRESSION: Lines and tubes as described. Bilateral infiltrates, increasing in the right lung base since previous study. Electronically Signed: Michael Hernandez MD at 17:20 EDT , Service support , KUB X-Ray 01/14/19 11:39 IMPRESSION: 1. Distal nasogastric tube is in the stomach. There is a possible kink at the level of the sidehole. 2. Unremarkable bowel gas pattern. 3. Persistent bibasilar pulmonary infiltrates. Electronically Signed: Amari Mayen MD at 12:54 EDT , Service support , KUB X-Ray 01/14/19 11:56 IMPRESSION: Distal orogastric tube is in the stomach, less kinked than on prior study. Electronically Signed: Amari Mayen MD at 13:49 EDT , Service support , KUB X-Ray 01/14/19 12:56 IMPRESSION: The tip of the orogastric tube is in the body of the stomach. Electronically Signed: Ever See, at 13:56 EDT , Service support , Chest CTA 01/18/19 12:29 IMPRESSION: Segmental and subsegmental pulmonary emboli in the right and left lung lower lobes. N.B. : The above information has been verbally conveyed by Lucas Mercado to JOYCE JANE on 01/18/2019 14:55:12 (ET). Electronically Signed: Lucas Mercado, at 15:07 EDT Tel , Service support , ADDENDUM: 01/18/19 1514 IMPRESSION: Segmental and subsegmental pulmonary emboli in the right and left lung lower lobes. N.B. : The above information has been verbally conveyed by Lucas Mercado to JOYCE JANE on 01/18/2019 14:55:12 (ET). Electronically Signed: Lucas Mercado, at 15:07 EDT Tel , Service support , Consultations 01/17/19 03:15 Consult: Onc/Wound/statistical methods teacher Routine Comment: Reason for Consult:: Skin breakdown on back. Need recommendations Operations: None Procedures: 2-D Echocardiogram, Intubation, PICC line placement Summary of Care Provided: The patient is a 33 year old F being found down. Patient was brought to the hospital, intubated. Patient was found to have influenza, MRSA pneumonia later bilateral pulmonary emboli. Patient had a troponin leak which is likely multifactorial due to septic shock, respiratory failure, PE pneumonia in the leg. Patient was explained that in and had a slow recovery in regards to her speech recovery in her strength but overall has improved. Patient still does require oxygen and will need to add arranged currently on 4 L with rest. And the patient need a follow-up chest x-ray in about 4-6 weeks to see if she has resolution of the pneumonia in the she had sustained. Patient will need further addiction management as outpatient but this will need to be facilitated by the patient. Patient has a probation officers who insisted that the patient go to an inpatient facility. Case management is likely see if that can be coordinated but is unclear what kind of leverage of the veterans service officer has or if is just statement that they feel the patient needs without any kind judicial input whatsoever. Nonetheless patient does require therapy and in regards to addiction treatment but from my standpoint this really needs to be voluntary veterans service officer will need to facilitate if this is mandatory for her or not but this was not compelled to the staff here if it was mandatory. [] Patient Problems: Active and Suspected Problems (Last Reviewed 12/13/18 @ 15:11 by Sangeeta Bailey) Acute respiratory failure with hypoxia (Acute) Pneumonia (Acute) Sepsis (Acute) Cardiac enzymes elevated (Acute) Subjective: No complaints. - Physical Exam General: Alert, No apparent distress, - - listless. HEENT: Atraumatic, Normocephalic Oral: Moist Mucosa, No Gingival or Mucosal Lesions/ Ulcerations Neck: No Nodes, Thyroid Normal Size and Texture Lungs: Clear to auscultation, No rhonchi, No wheeze, Diminished Cardiovascular: Regular rate, Regular Rhythm, Normal S1, Normal S2, No murmurs Abdomen: Bowel Sounds Present, Soft, Non Tender, Non-Distended, No Hepato-splenomegaly Extremities: No edema, No Calf Tenderness Vital Signs Temp Pulse Resp BP Pulse Ox 36.7 C 86 16 98/61 96 01/20/19 02:31 01/20/19 02:31 01/20/19 02:31 01/20/19 02:31 01/20/19 02:31 Oxygen Flow Rate (L/min) 4 Oxygen Delivery Method Nasal Cannula Weight: 90.832 kg Body Mass Index (BMI) 32.7 Intake and Output for Last 24 Hours 01/18/19 01/19/19 01/20/19 23:59 23:59 23:59 Intake Total 481 / 481 679 / 679 500 / 500 Output Total 2175 / 2175 1100 / 1100 300 / 300 Balance -1694 / -1694 -421 / -421 200 / 200 Microbiology Past 72 Hours 01/13/19 15:45 Blood Culture - Final Blood Culture (Wb) - Pic No growth in 5 days. 01/11/19 22:45 Blood Culture - Final Blood Culture (Wb) - Femoral Artery No growth in 5 days. Laboratory Tests Past 24 Hrs 01/20/19 01/20/19 06:20 06:20 WBC 16.4 H RBC 4.07 L Hgb 11.8 L Hct 37.7 MCV 92.6 MCH 29.0 MCHC 31.3 L RDW 15.8 H RDW Differential 49.1 H Plt Count 366 MPV 10.9 Neut % (Auto) Not Reportable Absolute Neuts (auto) 9.0 H Absolute Lymphs (auto) 6.07 H Total Counted 100 Neutrophils % (Manual) 55 Lymphocytes % (Manual) 37 Monocytes % (Manual) 3 Eosinophils % (Manual) 3 Metamyelocytes % 2 H Diff Path Review May foll Reactive Lymphocytes 1+ Platelet Estimate ADEQUATE Plt Morphology Comment LARGE Polychromasia 1+ Hypochromasia 1+ Anisocytosis 1+ Sodium 140 Potassium 3.5 Chloride 107 Carbon Dioxide 27.0 Anion Gap 6 BUN 15 Creatinine 0.62 Estim Creat Clear Calc 110.40 Est GFR (MDRD) Af Amer 141 Est GFR (MDRD) Non-Af 116 BUN/Creatinine Ratio 24.2 H Glucose 106 Calcium 8.2 L Discharge Diet: No Restrictions Discharge Activity: Return to Normal Activity Call your doctor if you observe: Fever of 101 or Higher, Shortness of breath Home Medications: Medications to take at Discharge loratadine 10 mg tablet 10 mg PO DAILY #90 tab 11/05/18 albuterol sulfate HFA 90 mcg/actuation aerosol inhaler 2 puff INHALATION Q6H PRN #8 g 11/29/18 benzonatate 200 mg capsule 200 mg PO TID PRN #60 cap 12/13/18 ibuprofen 200 mg tablet 600 mg PO TID-QID PRN #60 tab 12/13/18 Apixaban [Eliquis] 5 mg PO BID #60 tablet 01/20/19 Guaifenesin [Mucinex] 1,200 mg PO BID #20 tab.er.12h 01/20/19 Following Prescrptions Were Given to Patient: Apixaban [Eliquis] 5 mg PO BID #60 tablet Guaifenesin [Mucinex] 1,200 mg PO BID #20 tab.er.12h Primary Care Physician: Amando Graves MD [Primary Care Provider] - Within 1 Week Disposition: Home Minutes spent on discharge:: 40 Patient Condition:: Fair Medical Necessity - Tobacco Use Smoking Status: Current every day smoker - Unclear pack per day history. Tobacco Use: Cigarettes Meaningful Use Info Meaningful Use Diagnoses (Choose all that apply): None applicable Code Visit Inpatient E&M: 96070 Disch Hosp
--- NOTE | 2019-01-20 09:24 | DS.PCM_ITS ---
Discharge Date and Diagnosis - Problem List Patient Problems: Active and Suspected Problems (Last Reviewed 12/13/18 @ 15:11 by Sangeeta Bailey) Acute respiratory failure with hypoxia (Acute) Pneumonia (Acute) Sepsis (Acute) Cardiac enzymes elevated (Acute) Date of Admission: 01/11/19 Date of Discharge: 01/20/19 - Primary Discharge Diagnosis Active and Suspected Problems (Last Reviewed 12/13/18 @ 15:11 by Sangeeta Bailey) Acute respiratory failure with hypoxia (Acute) Pneumonia (Acute) Sepsis (Acute) Cardiac enzymes elevated (Acute) 1. Acute hypoxic respiratory failure: * POA. improving. * Multifactorial: 2/2 PNA, influenza, poly substance abuse, +/- ALI and pulmonary emboli. extubated 01/17. * Wean oxygen as tolerated. Will need oxygen as due to hypoxia and respiratory failure. 2. MRSA pneumonia: stable. Completed 7 days of Vancomycin. ? Aspiration from OD? Pulm toilet. ID following. Follow up CXR in 4-6 weeks. 3. Influenza A: resolved. completed Tamiflu. 4. Polysubstance abuse: Drug screen positive for Opiates, Amphetamines, methamphetamines. Hold off on withdrawal treatment at this time. Follow up outpt for addiction mgmt. 5. Septic shock: resolved off pressors currently. 2/2 Pneumonia and influenza. 6. Pulmonary emboli: * new diagnosis, but unclear if POA. * May explain the elevated troponins and elevated right hear pressures. Follow up echocardiogram as outpt. * DC Lovenox and start apixiban now that she is able to take oral. 7. Type 2 TN: * stable * likely demand due to resp failure, PNA, influenza, OD, shock, PE. 8. Toxic and metabolic encephalopathy: * improved. likely combination of Overdose as well as underlying infection. Question component of anoxic encephalopathy 9. Dysphagia: resolved. Passed Bedside swallow evaluation. - Secondary Discharge Diagnosis Chronic Problems (Last Reviewed 12/13/18 @ 15:11 by Sangeeta Bailey) Tobacco use (Chronic) Polysubstance abuse (Chronic) Hepatitis C (Chronic) Asthma (Chronic) Anxiety (Chronic) Endocarditis (Chronic) Heart murmur (Chronic) Bipolar 1 disorder (Chronic) Manic depression (Chronic) Hospital Course and Treatment Imaging Results: Clinical Impression(s) from Imaging Studies Chest X-Ray 01/11/19 20:08 IMPRESSION: Endotracheal and nasogastric tubes appearing in adequate position. Bilateral pulmonary infiltrates left side more severely affected than right. Electronically Signed: Keegan Munoz MD at 21:57 EDT , Service support , Liver Ultrasound 01/12/19 05:55 IMPRESSION: Mild hepatomegaly. Trace amount of pericholecystic fluid and sludge within the gallbladder lumen. Electronically Signed: Ever See, at 16:11 EDT , Service support , Chest X-Ray 01/13/19 07:54 IMPRESSION: Lines and tubes as described. Bilateral infiltrates, increasing in the right lung base since previous study. Electronically Signed: Michael Hernandez MD at 17:20 EDT , Service support , KUB X-Ray 01/14/19 11:39 IMPRESSION: 1. Distal nasogastric tube is in the stomach. There is a possible kink at the level of the sidehole. 2. Unremarkable bowel gas pattern. 3. Persistent bibasilar pulmonary infiltrates. Electronically Signed: Amari Mayen MD at 12:54 EDT , Service support , KUB X-Ray 01/14/19 11:56 IMPRESSION: Distal orogastric tube is in the stomach, less kinked than on prior study. Electronically Signed: Amari Mayen MD at 13:49 EDT , Service support , KUB X-Ray 01/14/19 12:56 IMPRESSION: The tip of the orogastric tube is in the body of the stomach. Electronically Signed: Ever See, at 13:56 EDT , Service support , Chest CTA 01/18/19 12:29 IMPRESSION: Segmental and subsegmental pulmonary emboli in the right and left lung lower lobes. N.B. : The above information has been verbally conveyed by Lucas Mercado to JOYCE JANE on 01/18/2019 14:55:12 (ET). Electronically Signed: Lucas Mercado, at 15:07 EDT Tel , Service support , ADDENDUM: 01/18/19 1514 IMPRESSION: Segmental and subsegmental pulmonary emboli in the right and left lung lower lobes. N.B. : The above information has been verbally conveyed by Lucas Mercado to JOYCE JANE on 01/18/2019 14:55:12 (ET). Electronically Signed: Lucas Mercado, at 15:07 EDT Tel , Service support , Consultations 01/17/19 03:15 Consult: Onc/Wound/clinical education consultant Routine Comment: Reason for Consult:: Skin breakdown on back. Need recommendations Operations: None Procedures: 2-D Echocardiogram, Intubation, PICC line placement Summary of Care Provided: The patient is a 33 year old F being found down. Patient was brought to the hospital, intubated. Patient was found to have influenza, MRSA pneumonia later bilateral pulmonary emboli. Patient had a troponin leak which is likely multifactorial due to septic shock, respiratory failure, PE pneumonia in the leg. Patient was explained that in and had a slow recovery in regards to her speech recovery in her strength but overall has improved. Patient still does require oxygen and will need to add arranged currently on 4 L with rest. And the patient need a follow-up chest x-ray in about 4-6 weeks to see if she has resolution of the pneumonia in the she had sustained. Patient will need further addiction management as outpatient but this will need to be facilitated by the patient. Patient has a probation officers who insisted that the patient go to an inpatient facility. Case management is likely see if that can be coordinated but is unclear what kind of leverage of the information systems security officer has or if is just statement that they feel the patient needs without any kind judicial input whatsoever. Nonetheless patient does require therapy and in regards to addiction treatment but from my standpoint this really needs to be voluntary information systems security officer will need to facilitate if this is mandatory for her or not but this was not compelled to the staff here if it was mandatory. [] Patient Problems: Active and Suspected Problems (Last Reviewed 12/13/18 @ 15:11 by Sangeeta Bailey) Acute respiratory failure with hypoxia (Acute) Pneumonia (Acute) Sepsis (Acute) Cardiac enzymes elevated (Acute) Subjective: No complaints. - Physical Exam General: Alert, No apparent distress, - - listless. HEENT: Atraumatic, Normocephalic Oral: Moist Mucosa, No Gingival or Mucosal Lesions/ Ulcerations Neck: No Nodes, Thyroid Normal Size and Texture Lungs: Clear to auscultation, No rhonchi, No wheeze, Diminished Cardiovascular: Regular rate, Regular Rhythm, Normal S1, Normal S2, No murmurs Abdomen: Bowel Sounds Present, Soft, Non Tender, Non-Distended, No Hepato-spl enomegaly Extremities: No edema, No Calf Tenderness Vital Signs Temp Pulse Resp BP Pulse Ox 36.7 C 86 16 98/61 96 01/20/19 02:31 01/20/19 02:31 01/20/19 02:31 01/20/19 02:31 01/20/19 02:31 Oxygen Flow Rate (L/min) 4 Oxygen Delivery Method Nasal Cannula Weight: 90.832 kg Body Mass Index (BMI) 32.7 Intake and Output for Last 24 Hours 01/18/19 01/19/19 01/20/19 23:59 23:59 23:59 Intake Total 481 / 481 679 / 679 500 / 500 Output Total 2175 / 2175 1100 / 1100 300 / 300 Balance -1694 / -1694 -421 / -421 200 / 200 Microbiology Past 72 Hours 01/13/19 15:45 Blood Culture - Final Blood Culture (Wb) - Pic No growth in 5 days. 01/11/19 22:45 Blood Culture - Final Blood Culture (Wb) - Femoral Artery No growth in 5 days. Laboratory Tests Past 24 Hrs 01/20/19 01/20/19 06:20 06:20 WBC 16.4 H RBC 4.07 L Hgb 11.8 L Hct 37.7 MCV 92.6 MCH 29.0 MCHC 31.3 L RDW 15.8 H RDW Differential 49.1 H Plt Count 366 MPV 10.9 Neut % (Auto) Not Reportable Absolute Neuts (auto) 9.0 H Absolute Lymphs (auto) 6.07 H Total Counted 100 Neutrophils % (Manual) 55 Lymphocytes % (Manual) 37 Monocytes % (Manual) 3 Eosinophils % (Manual) 3 Metamyelocytes % 2 H Diff Path Review May foll Reactive Lymphocytes 1+ Platelet Estimate ADEQUATE Plt Morphology Comment LARGE Polychromasia 1+ Hypochromasia 1+ Anisocytosis 1+ Sodium 140 Potassium 3.5 Chloride 107 Carbon Dioxide 27.0 Anion Gap 6 BUN 15 Creatinine 0.62 Estim Creat Clear Calc 110.40 Est GFR (MDRD) Af Amer 141 Est GFR (MDRD) Non-Af 116 BUN/Creatinine Ratio 24.2 H Glucose 106 Calcium 8.2 L Discharge Diet: No Restrictions Discharge Activity: Return to Normal Activity Call your doctor if you observe: Fever of 101 or Higher, Shortness of breath Home Medications: Medications to take at Discharge loratadine 10 mg tablet 10 mg PO DAILY #90 tab 11/05/18 albuterol sulfate HFA 90 mcg/actuation aerosol inhaler 2 puff INHALATION Q6H PRN #8 g 11/29/18 benzonatate 200 mg capsule 200 mg PO TID PRN #60 cap 12/13/18 ibuprofen 200 mg tablet 600 mg PO TID-QID PRN #60 tab 12/13/18 Apixaban [Eliquis] 5 mg PO BID #60 tablet 01/20/19 Guaifenesin [Mucinex] 1,200 mg PO BID #20 tab.er.12h 01/20/19 Following Prescrptions Were Given to Patient: Apixaban [Eliquis] 5 mg PO BID #60 tablet Guaifenesin [Mucinex] 1,200 mg PO BID #20 tab.er.12h Primary Care Physician: Amando Graves MD [Primary Care Provider] - Within 1 Week Disposition: Home Minutes spent on discharge:: 40 Patient Condition:: Fair Medical Necessity - Tobacco Use Smoking Status: Current every day smoker - Unclear pack per day history. Tobacco Use: Cigarettes Meaningful Use Info Meaningful Use Diagnoses (Choose all that apply): None applicable Code Visit Inpatient E&M: 95419 Disch Hosp
[2019-01-20 09:25] VITALS: BP 88/56; PULSE 79; RESP 18; TEMP 36.8; O2SAT 96
[2019-01-20 09:32] VITALS: BP 112/60; PULSE 78; O2SAT 95
[2019-01-20] MEDS: Aspirin 81 MG TAB.CHEW PO (09:34)
--- NOTE | 2019-01-20 10:07 | PCM.PN.ID ---
Patient Problems: Active and Suspected Problems (Last Reviewed 12/13/18 @ 15:11 by Sangeeta Bailey) Acute respiratory failure with hypoxia (Acute) Pneumonia (Acute) Sepsis (Acute) Cardiac enzymes elevated (Acute) Subjective: Stable off abx, no fever, breathing comfortably - Physical Exam General: Cooperative, No apparent distress Lungs: Clear to auscultation, Normal air movement Cardiovascular: Regular rate, Regular Rhythm Abdomen: Soft, Non Tender, Non-Distended Skin: No rashes Vital Signs Temp Pulse Resp BP Pulse Ox 98.3 F 78 18 112/60 95 01/20/19 09:25 01/20/19 09:32 01/20/19 09:25 01/20/19 09:32 01/20/19 09:32 Oxygen Flow Rate (L/min) 3 Oxygen Delivery Method Nasal Cannula Weight: 90.832 kg Body Mass Index (BMI) 32.7 Intake and Output for Last 24 Hours 01/18/19 01/19/19 01/20/19 23:59 23:59 23:59 Intake Total 481 / 481 679 / 679 500 / 500 Output Total 2175 / 2175 1100 / 1100 300 / 300 Balance -1694 / -1694 -421 / -421 200 / 200 Microbiology Past 72 Hours 01/13/19 15:45 Blood Culture - Final Blood Culture (Wb) - Pic No growth in 5 days. 01/11/19 22:45 Blood Culture - Final Blood Culture (Wb) - Femoral Artery No growth in 5 days. Laboratory Tests Past 24 Hrs 01/20/19 01/20/19 06:20 06:20 WBC 16.4 H RBC 4.07 L Hgb 11.8 L Hct 37.7 MCV 92.6 MCH 29.0 MCHC 31.3 L RDW 15.8 H RDW Differential 49.1 H Plt Count 366 MPV 10.9 Neut % (Auto) Not Reportable Absolute Neuts (auto) 9.0 H Absolute Lymphs (auto) 6.07 H Total Counted 100 Neutrophils % (Manual) 55 Lymphocytes % (Manual) 37 Monocytes % (Manual) 3 Eosinophils % (Manual) 3 Metamyelocytes % 2 H Diff Path Review May foll Reactive Lymphocytes 1+ Platelet Estimate ADEQUATE Plt Morphology Comment LARGE Polychromasia 1+ Hypochromasia 1+ Anisocytosis 1+ Sodium 140 Potassium 3.5 Chloride 107 Carbon Dioxide 27.0 Anion Gap 6 BUN 15 Creatinine 0.62 Estim Creat Clear Calc 110.40 Est GFR (MDRD) Af Amer 141 Est GFR (MDRD) Non-Af 116 BUN/Creatinine Ratio 24.2 H Glucose 106 Calcium 8.2 L Medical Necessity - Tobacco Use Smoking Status: Current every day smoker - Unclear pack per day history. Tobacco Use: Cigarettes Route of nutrition/ use of supplements: [] Nutritional Intake: [] IV Site: [] Khalil Catheter: [] - Assessment/Plan Antibiotics: [] Assessment/Plan: [] Active and Suspected Problems (Last Reviewed 12/13/18 @ 15:11 by Sangeeta Bailey) Acute respiratory failure with hypoxia (Acute) Pneumonia (Acute) Sepsis (Acute) Cardiac enzymes elevated (Acute) septic shock with flu, MRSA pneumonia, and suspected aspiration pneumonia in pt with polysubstance abuse, hep C, and h/o endocarditis - Bcx neg so far. Echo showed no veg. Now extubated. Completed 5 days of tamiflu. Completed 7 days of vanc on 01/19. Wbc nearly normal. Stable off abx. CT showed multiple PEs. 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 HIV neg. LFTs with some transaminitis on arrival, improving. She reports she had appt this month for her hepatitis; likely not a candidate for treatment for at least several months due to ongoing drug use. Will follow
[2019-01-20 10:12] LABS: Pathologist Review Reviewed
--- NOTE | 2019-01-20 10:28 | CASEMGMT ---
Addendum entered by Joslyn Lucas 01/20/19 12:52: SW spoke w/pt, explained to pt that SW did get a message from pt's P.O. yesterday and the P.O. said she would like pt to go somewhere for inpt rehab. SW explained has called multiple places today however and SW has not been able to find any place that can take pt due to her medical issues. Pt states understanding and would rather go home to her mother's it seems. SW explained has a program in [place] where pt could go for outpt services, [facility], and explained can put pt on the phone w/them to set up an appt. Pt in agreement with this. SW also explained pt will need home O2, SW had called [facility] earlier and they do take her insurance and service the [place] area. Pt agreeable for O2 to be ordered from [facility]. SW explained they will bring a tank here and deliver the concentrator to her mother's home, pt is agreeable to this and states that her parents will need 2 hours to get here, she is fine w/SW calling her mother. SW then called [facility] and gave pt the phone to set up an appointment. SW called pt's mother. SW explained did try to set up inpt rehab for pt however was not able to find any programs that could take pt due to the medical issues. SW explained put pt on the phone w/[facility] to make an outpt appt, gave her the address and phone number of the program. SW let pt's mother know pt is discharged and can come home today. Pt's mother is agreeable to have pt come to her home though is concerned as pt will be home alone at times, as the parents work. SW offered support to mother. SW also let her know that we are ordering O2 through [facility] and that they will bring portable O2 to the hospital and the concentrator to the home. Pt's mother states understanding. SW will confirm shortly w/pt that she did make an appt w/[facility]. IAIN Fink, ALTERATIONS TAILOR Original Note: Addendum entered by Joslyn Lucas 01/20/19 12:06: SW called [facility] in [place], an inpt unit, message left, have not received a call back. SW spoke w/Sadiq from [facility], he suggested calling Cami and Margarita Wilburn. SW called [facility], they do referrals to other programs and know of no programs that could accommodate this pt with her medical issues. SW called [facility] but their phone number seems to be out of order, SW called their outpt clinic, confirmed that their phones are indeed not working. SW called [facility] in [place], was directed to [facility]. SW called [facility], they only do outpt, are unaware of any inpt organizations in the area and are booking into March. SW called [facility], they do outpt treatment, and can set up an initial appt w/pt, pt would need to call directly. SW called [facility] in [facility], they have no openings, and would likely not be able to take pt anyway. SW received a call from Ashley at [facility], she states she is unaware of any inpt program that would be able to accommodate pt. SW called pt's PO Rachel Neff, message left letting her know that given the pt's medical issues, SW is not able to go into an inpt rehab. SW explained will set her up w/outpt services. SW will meet w/pt shortly. IAIN Fink, ALTERATIONS TAILOR Original Note: SW received a call from pt's PO Rachel Neff yesterday stating that the solvent mixer left it up to her to decide where pt should go at discharge. Hernan states that she would prefer pt go to an inpt rehab unit, though pt's mother did say pt could go home. SW called [facility] to see if they know of any programs that could take pt w/her given medical issues. They do not. YUKI called [facility], spoke w/Sadiq. As per Sadiq, he will speak their physician about any programs that may be able to manage pt's medical issues, he will call this SW back. SW will also look into other possible options. IAIN Fink, ALTERATIONS TAILOR
[2019-01-20 11:02] VITALS: O2SAT 83
--- NOTE | 2019-01-20 11:02 | NURSING ---
spO2 83% at rest
[2019-01-20] MEDS: Acetaminophen 325 MG Tablet 650 MG PO (11:03)
[2019-01-20] MEDS: APIXABAN 5 MG TABLET 10 MG PO (11:03)
--- NOTE | 2019-01-20 13:40 | CASEMGMT ---
Addendum entered by Yash Gagnon 01/20/19 14:00: Call placed to [facility] and they confirmed they received the O2 script. Original Note: LONNY LAGOS NOTE: Pt qualifies for Home O2. Script obtained from Dr Cavanaugh and faxed to [facility] @ along with copy of insurance card, home O2 qualification testing results, and physician documentation stating need for O2. They were made aware pt is discharging today. Cassandra CABAN RN CM
--- NOTE | 2019-01-20 14:07 | CASEMGMT ---
Addendum entered by Joslyn Lucas 01/20/19 14:57: O2 was delivered to pt in room. SW gave pt a list of psychiatrists near pt's mother that take her insurance, and a list of PCP's. Pt is going to try to get in w/her mother's PCP, and if she cannot she has a list of PCP's in the area who take her insurance, SW advised her to make an appt in the next couple of weeks, and they can test to see if pt still needs the O2. No further needs. Pt home today w/pending appt w/Sallie, O2 through [facility], information for PCP's and psychiatry in [place]. IAIN Fink, SEWER Original Note: SW spoke w/pt again, her aunt and uncle are visiting. Pt states Carolyn needs a release signed by pt to speak w/her PO so they know what to set up for her. Also, pt answered SW phone and her father called, she asked SW to call him back. SW called pt's mother back, she put Juan, pt's step father on the phone. Juan explains that he doesn't understand how all this stuff is getting set up for their house and nobody has even spoken w/them. YUKI explained to Juan that SW has been calling places all morning but given pt's need for O2 and other medical issues no inpt rehab will take pt. YUKI explained that the PO left a message yesterday stating she would like pt to go to an inpt rehab, and SW was looking into it. YUKI explained to Juan that pt is not committed to this either however. YUKI explained also that as per the PO, she spoke w/pt's mother and she was fine w/pt coming to their home. YUKI explained is working on getting an outpt appt set up for the pt and having oxygen to their house. Juan states, to this house? YUKI explained that yes, the O2 concentrator would be delivered to their house for pt. YUKI explained the portable is being brought here for pt and the concentrator will be brought to their house. Juan asked what is to keep pt from not going, YUKI explained he can ask the PO, but pt can choose to not go. YUKI explained that pt has had a choice throughout this, she can choose to not go, he can ask the PO what the consequences would be. Juan states understanding, he does seem to understand that pt needs to be invested in the treatment. Juan then put Tonja back on the phone. Tonja asked if her sister who is visiting can bring pt home. YUKI explained that yes, once the oxygen is delivered, and SW would like to try to get the appt set up for pt, pt can be discharged and they can bring her home. YUKI called Rachel again, message left to fax a release. Rachel called back and faxed a release, said that what SW set up should be fine, states she appreciates the SW assist. YUKI gave her the name and number to the program where YUKI is attempting to set up an appointment. YUKI spoke w/pt again, she signed the release. YUKI let pt and family know they can take pt home once the O2 gets delivered, and would like to get the appt set for [facility]. YUKI called [facility], they need pt's records first before setting up a first appointment, but can usually do this within a day. YUKI explained will fax the release and put the number where to reach pt, which is her mother's number, on the fax cover sheet. YUKI faxed the release to [facility] for pt. Pt also needs clothes to go home, SW was able to get some pants and a sweatshirt for pt and gave to her. YUKI explained to pt that [facility] will follow up w/her to get appt set, will call her mother's number. YUKI explained to pt gave her mother, and her PO Rachel the number to [facility] and will get it for her also. Pt asked if physician prescribed her bipolar meds for discharge, SW explained he did not, will see about getting her a list of psychiatrists also for her. SW will follow up one last time w/pt to give her the number to [facility] and some numbers for psychiatry in [place]. IAIN Fink, SEWER
[2019-01-20 15:14] VITALS: BP 111/68; PULSE 93; RESP 20; TEMP 37.1; O2SAT 95
== END 2019-01-20 15:30 | disposition home or self-care (01) | DRG 720 ==
LOC: ED 20:24 → ICU 22:37 → MS2 01-19 09:59
PROVIDERS: Internal Medicine; Internal Medicine Critical Care Medicine; Admitting Provider Family Medicine; Emergency Provider Emergency Medicine; Family Provider Internal Medicine; PCP Internal Medicine; Referring Provider Family Medicine
DX: A41.89 Other specified sepsis (principal); F17.210 Nicotine dependence, cigarettes, uncomplicated; R65.21 Severe sepsis with septic shock; G93.41 Metabolic encephalopathy; J96.01 Acute respiratory failure with hypoxia; J10.08 Influenza due to other identified influenza virus with other specified pneumonia; J15.212 Pneumonia due to Methicillin resistant Staphylococcus aureus; I26.99 Other pulmonary embolism without acute cor pulmonale; I21.A1 Myocardial infarction type 2; F31.9 Bipolar disorder, unspecified; J45.909 Unspecified asthma, uncomplicated; Z78.1 Physical restraint status; T50.901A Poisoning by unspecified drugs, medicaments and biological substances, accidental (unintentional), initial encounter; B18.2 Chronic viral hepatitis C; M62.82 Rhabdomyolysis; E83.51 Hypocalcemia; I50.30 Unspecified diastolic (congestive) heart failure; I07.1 Rheumatic tricuspid insufficiency; I27.20 Pulmonary hypertension, unspecified; G92 Toxic encephalopathy; F19.10 Other psychoactive substance abuse, uncomplicated; F41.9 Anxiety disorder, unspecified
CPT/HCPCS: 31500; 31720; 36415; 36569; 36600; 51702; 71045; 71275; 74018; 76705; 80048; 80053; 80061; 80076; 80202; 80307; 81001; 82550; 82803; 82962; 83036; 83605; 83735; 83880; 84100; 84132; 84484; 84703; 85025; 85027; 85610; 86703; 86704; 86705; 86706; 86708; 86709; 86803; 87040; 87070; 87077; 87186; 87205; 87340; 87449; 87493; 87633; 87641; 92507; 92526; 92610; 93005; 93306; 94002; 94003; 94640; 94660; 95831; 97116; 97162; 97166; 97530; 97802; 99251; 99285; J7030; J7040; J7050; J7120; Q9967; A4216; G0463; J0610; J1940; J3486